=== PATIENT | male | born 1960 | race Caucasian/White ===

== ENCOUNTER 2020-07-09 09:43 | Day surgery (SDC) | payer MEDICARE, SELFPAY ==
[2020-07-03 14:48] VITALS: BMI 27.3
--- NOTE | 2020-07-04 14:44 | P.CONAN_ITS ---
Documented by User: Stephanie López 07/04/20 14:45 HPI - Anesthesia Eval Consult details Narrative: 60yo M for EGD and Colonoscopy: GERD, screening PMFSH Past Medical History Medical History Anxiety Depression GERD (gastroesophageal reflux disease) High cholesterol Hypertension Surgical History Surgical History History of left knee surgery Hx of appendectomy Hx of colonoscopy Social History Social History Smoking Status: Never smoker Use of substances other than those prescribed or required for medical reasons: No Advance Directives: Yes Advance Directives on File: Yes Advance Directives Date on File: 07/09/20 Meds Allergies Allergy/AdvReac Type Severity Reaction Status Date / Time Benadryl Allergy Unknown Agitated, Uncoded 07/03/20 14:39 itching,rash Home Medications Medication Instructions Recorded Confirmed Type alprazolam 1 mg PO BID 07/03/20 07/03/20 History amlodipine 1 tab PO DAILY 07/03/20 07/03/20 History atorvastatin 1 tab PO DAILY 07/03/20 07/03/20 History duloxetine 2 cap PO DAILY 07/03/20 07/03/20 History losartan 1 tab PO DAILY 07/03/20 07/03/20 History metoprolol tartrate 1 tab PO DAILY 07/03/20 07/03/20 History multivitamin 1 tab PO DAILY 07/03/20 07/03/20 History oxcarbazepine [Trileptal] 900 mg PO DAILY 07/03/20 07/03/20 History Exam Exam Date and Time: July 04, 2020 1444 Height,Weight and Vital Signs: Height 5 ft 8 in Weight 81.647 kg Assessment and Plan Assessment Anesthesia Assessment: Chart Reviewed Documented by User: Mikki White 07/09/20 10:53 [facility]LY [facility] Past Medical History Medical History Anxiety Depression GERD (gastroesophageal reflux disease) High cholesterol Hypertension Surgical History Surgical History History of left knee surgery Hx of appendectomy Hx of colonoscopy Social History Social History Smoking Status: Never smoker Use of substances other than those prescribed or required for medical reasons: No Advance Directives: Yes Advance Directives on File: Yes Advance Directives Date on File: 07/09/20 Meds Allergies Allergy/AdvReac Type Severity Reaction Status Date / Time Benadryl Allergy Unknown Agitated, Uncoded 07/03/20 14:39 itching,rash Home Medications Medication Instructions Recorded Confirmed Type alprazolam 1 mg PO BID 07/03/20 07/03/20 History amlodipine 1 tab PO DAILY 07/03/20 07/03/20 History atorvastatin 1 tab PO DAILY 07/03/20 07/03/20 History duloxetine 2 cap PO DAILY 07/03/20 07/03/20 History losartan 1 tab PO DAILY 07/03/20 07/03/20 History metoprolol tartrate 1 tab PO DAILY 07/03/20 07/03/20 History multivitamin 1 tab PO DAILY 07/03/20 07/03/20 History oxcarbazepine [Trileptal] 900 mg PO DAILY 07/03/20 07/03/20 History Exam Airway Mallampati Class: II TM Dist: >3cm Neck ROM: Full
[2020-07-09 11:07] VITALS: BP 101/79; PULSE 72; RESP 16; TEMP 36.4; O2SAT 95
[2020-07-09] MEDS: Lactated Ringers 1,000 ML 100 ML IVCONT (11:21)
[2020-07-09 12:22] VITALS: BP 86/57; PULSE 62; RESP 18; TEMP 36.7; O2SAT 95
[2020-07-09 12:31] VITALS: BP 91/56
[2020-07-09 12:38] VITALS: BP 94/62; PULSE 63; RESP 18; O2SAT 96
[2020-07-09 12:50] VITALS: BP 104/76; PULSE 62; RESP 18; TEMP 36.7; O2SAT 96
--- NOTE | 2020-07-09 13:02 | OP_ITS ---
SURGEON: Trino Holt MD INDICATIONS: The patient presents for evaluation of gastroesophageal reflux, colorectal cancer screening. Full consent has been obtained from him for this, including risks of bleeding and perforation. PREOPERATIVE DIAGNOSIS: POSTOPERATIVE DIAGNOSIS: PROCEDURE PERFORMED: Esophagogastroduodenoscopy with biopsies, and colonoscopy to cecum with biopsy and removal of polyps. ESTIMATED BLOOD LOSS: COMPLICATIONS: ANESTHESIA: Monitored anesthesia care. ASSISTANTS: SPECIMENS: PREOPERATIVE DIAGNOSES: Gastroesophageal reflux, colorectal cancer screening. POSTOPERATIVE DIAGNOSES: Gastroesophageal reflux, colorectal cancer screening, hiatal hernia, reflux esophagitis, gastritis, colon polyps, diverticulosis, internal hemorrhoids, and fibroepithelial polyp of anus. DESCRIPTION OF PROCEDURE: The patient was placed in the left lateral decubitus position. The Olympus video gastroscope was passed in the posterior oropharynx and upper esophagus under direct vision. The scope was passed slowly into the distal esophagus. The gastroesophageal junction appeared at 35 cm. There was evidence of some erosive esophagitis, but no ulceration, mass, nor stricture. There was no definitive evidence of Gama's mucosa. The scope was entered into the stomach. There was a moderate-sized hiatal hernia. The hiatal hernia mucosa appeared normal. The scope was advanced to pylorus and duodenum cannulated to the descending portion. The duodenum including the bulb appeared normal without mass or ulceration. The scope was withdrawn back into the stomach. The gastric antrum had some chronic changes of gastritis, but without erosions nor ulceration. There was good peristalsis. Scope was retroflexed visualizing the proximal stomach carefully which appeared normal, without any sign of mass or ulceration. The scope was straightened. Biopsies were obtained in the gastric antrum. Scope was withdrawn back into the esophagus. Biopsies were obtained at the EG junction at 35 cm. Proximal to this, the esophageal mucosa appeared normal. The scope was withdrawn from the patient. He was turned around for colonoscopy. The digital rectal exam revealed no abnormalities. The Olympus video pediatric colonoscope was entered into the rectum and advanced to the cecum with the assistance of abdominal wall pressure. Once in the cecum, I did identify cecal pouch with appendiceal orifice and a normal-appearing ileocecal valve. There was transillumination of light deep in the right lower quadrant. The entire cecum was well visualized after copious irrigation and suctioning. This appeared normal. The scope was then slowly withdrawn assessing all mucosal surfaces carefully. Preparation was only fair throughout the colon with a fairly significant amount of liquid stool in the sigmoid colon and left colon, which was irrigated and suctioned away as best as possible. In the ascending colon and in the rectum, were flat 3 or 4 mm polyps, which were each biopsied and completely removed with cold biopsy forceps. There was a mild amount of sigmoid diverticulosis. In the rectum, scope was retroflexed visualizing internal hemorrhoids. Both in the forward viewing and retroflexed position, was also what appeared to be a fibroepithelial polyp below the dentate line. This was not biopsied nor removed. The scope was then straightened and withdrawn from the patient. He tolerated both procedures well and was returned to the recovery area in stable condition. IMPRESSION: 1. Hiatal hernia with associated reflux esophagitis. 2. Chronic-appearing gastritis. 3. Small colon polyps. 4. Diverticulosis. 5. Internal hemorrhoids. 6. Fibroepithelial polyp of the anal canal. PLAN: The results of the biopsy will be checked. Given the limited prep and the removal of polyps, I would recommend a repeat colonoscopy in 5 years. However, I also advised him to pick remover a Cologuard test from his primary care physician and if this is positive, we would want to proceed with a colonoscopy later this year or next year instead. He was advised not to use any aspirin and NSAIDs for 1 week. He was given a prescription to start omeprazole 20 mg daily for symptomatic relief of his reflux and today's endoscopic findings. He was advised to see me in 2 to 3 months for a followup visit as well. MD ANASTASIYA Parks/JYOTSNA / [phone]
--- NOTE | 2020-07-09 13:09 | HO.POSTANES ---
Post Anesthesia Evaluation Post Anesthesia Evaluation Vital Signs: Vital Signs Temp Pulse Resp BP Pulse Ox 07/09/20 12:50 98.1 F 62 18 104/76 96 07/09/20 12:38 63 18 94/62 96 07/09/20 12:31 91/56 L 07/09/20 12:22 98.1 F 62 18 86/57 L 95 07/09/20 11:07 97.5 F 72 16 101/79 95 Anesthesia: Monitored Mental Status: Awake Pain Control: Satisfactory Nausea/Vomiting: None Hydration: Adequate Anesthesia-Related Issues: No Anes. Related Issues
--- NOTE | 2020-07-09 15:42 | PM.OP ---
Brief Operative Note Date of procedure: 07/09/20 Pre-op diagnosis: GERD, Screening Post-op diagnosis: other (Erosive esophagitis, Hiatal hernia, colon polyps ,dicverticulosis, internal hemorrhoids) Procedure: EGD with biopsies and Colonoscopy to cecum with biopsy and removal of polyps Surgeon: Trino Holt Anesthesia: MAC Estimated blood loss (mL): 5.0 Pathology: other (A. EG Junction at 35cm B. Gastric antrum C. Ascending colon polyp D. Rectal polyp) Condition: stable Disposition: PACU
== END 2020-07-09 13:23 | disposition home or self-care (01) ==
PROVIDERS: PCP Internal Medicine; Visit Provider Internal Medicine
PROC: (CPT 45380; principal; 2020-07-09 11:00)
DX: Z12.11 Encounter for screening for malignant neoplasm of colon (principal); D12.2 Benign neoplasm of ascending colon; K57.30 Diverticulosis of large intestine without perforation or abscess without bleeding; K64.8 Other hemorrhoids; K62.1 Rectal polyp; K21.00 Gastro-esophageal reflux disease with esophagitis, without bleeding; K29.50 Unspecified chronic gastritis without bleeding; K44.9 Diaphragmatic hernia without obstruction or gangrene; I10 Essential (primary) hypertension; E78.00 Pure hypercholesterolemia, unspecified; F32.9 Major depressive disorder, single episode, unspecified; Z79.899 Other long term (current) drug therapy
CPT/HCPCS: 45380; 43239; 88305; 88342

== ENCOUNTER 2020-08-29 12:48 | Outpatient (REF) | payer MEDICARE, SELFPAY | END 2020-08-29 12:49 | disposition home or self-care (01) | LOC: HO.WFDLDS 12:48 | PROVIDERS: PCP Internal Medicine; Visit Provider Internal Medicine | DX: Z20.828 Contact with and (suspected) exposure to other viral communicable diseases (principal) | CPT/HCPCS: C9803; U0003 ==

== ENCOUNTER 2021-07-30 10:17 | Outpatient (REF) | payer MEDICARE, SELFPAY ==
[2021-07-30 11:57] LABS: Vitamin D 25-OH Total 18.5 ng/mL (>30)
[2021-07-30 12:01] LABS: Folate 8.5 ng/mL (> or = 4.0); Vitamin B12 420 pg/mL (200-900)
== END 2021-07-30 10:18 | disposition home or self-care (01) ==
LOC: HO.LAB 10:17
PROVIDERS: PCP Internal Medicine; Visit Provider Psychiatry & Neurology Neurology
DX: G30.9 Alzheimer's disease, unspecified (principal)
CPT/HCPCS: 36415; 82306; 82607; 82746

== ENCOUNTER 2021-11-05 08:03 | Outpatient (REF) | payer MEDICARE, SELFPAY ==
--- NOTE | ~2021-11-05 | XR_ITS ---
EXAMINATION: XR CHEST CLINICAL INFORMATION: Dyspnea COMPARISON: 03/24/2013 TECHNIQUE: 2 views of the chest were obtained. FINDINGS: No significant abnormality is noted involving the heart, lungs, mediastinum, bony thorax or soft tissues. XR/XR chest 2V IMPRESSION: Unremarkable examination.
--- NOTE | 2021-11-05 08:28 | ECG_ITS ---
Test Reason : htn Blood Pressure : / mmHG Vent. Rate : 058 BPM Atrial Rate : 058 BPM P-R Int : 150 ms QRS Dur : 088 ms QT Int : 402 ms P-R-T Axes : 033 052 051 degrees QTc Int : 394 ms Sinus bradycardia Otherwise normal ECG When compared with ECG of 12-FEB-2018 11:28, No significant change was found Referred By: Dimas Fish Electronically Signed By:TRINA BARAJAS MD
[2021-11-05 08:29] LABS: MANUAL DIFF FLAG NO
[2021-11-05 08:58] LABS: Basophils Percent Auto 0.6 % (0-2); Eosinophils Absolute Auto 0.2 X10*3/uL (0.0-0.4); Eosinophils Percent Auto 3.2 % (0-4); Hemoglobin 16.1 g/dl (14.0-18.0); Imm Gran Abs Auto 0.02 X10*3/uL (0.00-0.03); Imm Gran Pct Auto 0.3 % (0.0-0.4); Lymphocytes Absolute Auto 2.2 X10*3/uL (1.2-4.9); Lymphocytes Percent Auto 29.9 % (20-40); Mean Corpuscular HGB Conc 33.5 g/dl (31.0-36.0); Mean Corpuscular Hemoglobin 31.3 pg (27.0-33.0); Mean Corpuscular Volume 93.2 fL (80.0-98.0); Mean Platelet Volume 11.2 fL (9.4-12.4); Monocytes Absolute Auto 0.6 X10*3/uL (0.1-1.2); Monocytes Percent Auto 7.8 % (2-11); Neutrophils Absolute Auto 4.2 x10*3/uL (2.0-8.3); Neutrophils Percent Auto 58.2 % (45-73); Platelet Count 190 X10*3/uL (160-400); Red Blood Count 5.15 X10*6/uL (4.60-5.80); Red Cell Distribution Width 11.9 % (11.0-16.0); White Blood Count 7.2 X10*3/uL (4.8-10.8)
[2021-11-05 09:36] LABS: Alanine Aminotransferase 37 U/L (0-40); Albumin Level 4.5 g/dL (3.5-5.0); Alkaline Phosphatase 66 U/L (39-117); Anion Gap 12 (12-20); Aspartate Amino Transferase 36 U/L (5-37); Bilirubin Total 0.5 mg/dL (0.0-1.0); Blood Urea Nitrogen 27 mg/dL (9-16); Calcium 10.1 mg/dL (8.4-10.2); Carbon Dioxide 30 mmol/L (22-29); Chloride 103 mmol/L (96-108); Cholesterol 197 mg/dL; Estimated Glomerular Filt Rate > 60; Glucose Fasting 109 mg/dL (60-99); HDL Cholesterol 40 mg/dL; LDL Cholesterol Calculated 109 mg/dl; Sodium 140 mmol/L (135-145); Triglycerides 244 mg/dL
[2021-11-05 09:59] LABS: Prostate Specific Antigen Scr 0.31 ng/mL (<0.05-4.0); Thyroid Stimulating Hormone 1.87 uIU/mL (0.32-4.0)
== END 2021-11-05 08:04 | disposition home or self-care (01) ==
LOC: HO.XRAY 08:03
PROVIDERS: PCP Internal Medicine; Visit Provider Internal Medicine
DX: Z00.00 Encounter for general adult medical examination without abnormal findings (principal); Z13.0 Encounter for screening for diseases of the blood and blood-forming organs and certain disorders involving the immune mechanism; Z13.9 Encounter for screening, unspecified; Z12.5 Encounter for screening for malignant neoplasm of prostate; R06.00 Dyspnea, unspecified
CPT/HCPCS: 36415; 71046; 80053; 80061; 84153; 84443; 85025; 93005

== ENCOUNTER → 2021-12-24 14:33 | Outpatient (BNVA) | payer MEDICARE, SELFPAY | PROVIDERS: PCP Internal Medicine; Referring Provider Internal Medicine; Visit Provider Internal Medicine Cardiovascular Disease | DX: I25.10 Atherosclerotic heart disease of native coronary artery without angina pectoris (principal); R07.89 Other chest pain; R00.2 Palpitations | CPT/HCPCS: 99202 ==

== ENCOUNTER → 2022-01-07 10:50 | Outpatient (REF) | payer MEDICARE, SELFPAY ==
--- NOTE | 2022-01-07 10:53 | CA_ITS ---
Acquisition Time: 2022-01-07 11:08:47 Total Exercise Time: 00:09:47 Test Indications: CP Medications: SEE CHART Protocol: LATOYA Max HR: 148 BPM 93% of Pred: 158 BPM Max BP: 118/076 mmHG Max Work Load: 11.3 METS Exercise stress ECHO using Latoya protocol. Pt tolerated well exercised for 9 min. 47 sec, METS 11.3, and MAPHR up to 93 %. EKG without arrhythmias, mild [address] depressions seen in leads ll, lll, and lead V3. Pt denies CP, mild SOB that improved in recovery. Pt's BP dropped to 88/58 at 5 min into exercise with no sx, bp rechecked at 6 min up to 100/58. ECHO images taken at rest and immediately when peak exercise. Definity IV was used. Test reviewed with Dr. Linares. STRESS ECHO : Technique : Images were obtained at rest and immediately post exercise within 1 minute and 15 seconds. Definity contrast was used to enhance endocardial definition. Images were obtained in multiple views and compared side to side. Findings : At rest images are of good quality. LV systolic function is normal with normal wall motion. Posr exercise images, parasternal views are sub optimal due to off axis views. There is excellent augmentation of global LV systolic function. Apical views demonstrate on regional wall motion abnormalities. Cocnlusion : Stress echo is negative for ischemia. Referred By: Trina Linares Overread By: TRINA LINARES MD
--- NOTE | 2022-01-07 10:53 | HM_ITS ---
* Total monitoring time 3 days and 2 hours. * Underlying rhythm is sinus. Average rate 70/Min. Range 48 to 119/Min. * No atrial fibrillation or flutter or AV blocks or pauses. * Very rare supraventricular and ventricular ectopy with minimal burden. * No patient events. MTDD
== END ==
LOC: HO.CARD 10:50
PROVIDERS: PCP Internal Medicine; Visit Provider Internal Medicine Cardiovascular Disease
DX: R00.2 Palpitations (principal)
CPT/HCPCS: 93242; 93350; Q9957

== ENCOUNTER → 2022-02-11 08:37 | Outpatient (BNVA) | payer MEDICARE, SELFPAY | PROVIDERS: PCP Internal Medicine; Referring Provider Internal Medicine; Visit Provider Internal Medicine Cardiovascular Disease | DX: I25.10 Atherosclerotic heart disease of native coronary artery without angina pectoris (principal); R00.2 Palpitations | CPT/HCPCS: 99212 ==

== ENCOUNTER 2022-03-07 11:24 | Outpatient (REF) | payer MEDICARE, SELFPAY ==
--- NOTE | ~2022-03-07 | XR_ITS ---
EXAMINATION: XR LUMBOSACRAL SPINE CLINICAL INFORMATION: Pain COMPARISON: None TECHNIQUE: Three views of the lumbosacral spine. FINDINGS: Bone alignment is normal. No fracture or dislocation is seen. Disc spaces are normal. There is lower lumbar spine facet arthritis. XR/XR lumbar spine 2-3V IMPRESSION: Lower lumbar spine facet arthritis.
== END 2022-03-07 11:25 | disposition home or self-care (01) ==
LOC: HO.XRAY 11:24
PROVIDERS: PCP Internal Medicine; Visit Provider Internal Medicine
DX: M54.9 Dorsalgia, unspecified (principal)
CPT/HCPCS: 72100

== ENCOUNTER 2023-04-10 09:01 | Outpatient (AMB) | payer MEDICARE, SELFPAY ==
--- NOTE | 2023-04-10 06:50 | A.OFFVIS_ITS ---
Intake Intake Visit Reasons: prostatitis Intake Note: NEW Patient presents today to established treatment for Prostatitis: Meds- None Allergies to Antibiotic- No Known Allergies Blood Thinner- None PVR- 523 ml [employer] Required: No Accompanied by: Self / Same As Patient Allergies diphenhydramine [From Benadryl] Allergy (Unknown, Verified 04/10/23 09:05) aggitated,itch,rash HPI HPI Comments History of Present Illness Details Erwin is a 62-year-old male who presents today to the office for an evaluation of prostatitis.? 04/10/2023? He has a past medical history of hypertension, dementia, and depression. He states that he was seen by his PCP for the complaints of urgency and was diagnosed with prostatitis. He was treated with antibiotic at that time. He states that he has taken the medication everyday for a month.? Currently, he is not taking any antibiotics.? He states that he was referred here due to persistent pain and burning while urinating. He also mentions having incomplete bladder emptying.? He denies any swelling in the scrotum area. He had PSA done on 11/05/2021?0.31. Evaluation today UA-- -- leucocytes: 15; blood: negative; bladder scan PVR; 523mL. (Disc'd catheterization) He states that he had urge to void again before putting Sweeney catheter, he voided 250mL, I am going to hold on putting Sweeney catheter today.? Recommended the patient to restart Tamsulosin 0.4mg daily.? Exam: Prostate was mildly enlarged 2+; smooth, no suspicious nodules palpated; testicles are normal. He will try to void again and will determine that whether he will get a Sweeney catheter Plan:? Advised to restart taking Tamsulosin 0.4mg daily. Office Cystoscopy in 6-weeks. Renal US prior He will have PSA and renal US prior to 6 week follow up. Follow up in 7-10 days with the nurse to have repeat bladder scan in the office. [facility] Medical History Anxiety CAD (coronary artery disease) Chronic GERD Colon polyps Dementia Depression Depression GERD (gastroesophageal reflux disease) High cholesterol Hyperlipidemia Hypertension Hypertension Surgical History History of left knee surgery Hx of appendectomy Hx of colonoscopy Family History Father Past heart attack Mother Hypertension Social History Housing: House Alcohol intake: current Alcohol intake frequency: a few times a month Patient Tobacco Use Status: Never used Tobacco e-Cigarette/Vaping Use: Never Used Second Hand Smoke Exposure: No Advance Directives Date on File: 07/09/20 Current occupational status: employed Cognitive needs: No Hearing needs: No Vision needs: Yes Review of Systems Const All systems reviewed & are unremarkable except as noted in HPI and below Reports no additional complaints Eyes Reports no additional complaints ENT Reports no additional complaints Card Denies dyspnea Resp Denies cough and Denies dyspnea GI Reports no additional complaints Musc Reports no additional complaints Skin/Breast Denies rash and Denies unusual bruising Neuro Reports no additional complaints Psych Reports no additional complaints Endo Reports no additional complaints Heath/Lymph Reports no additional complaints Aller/Immun Reports no additional complaints Physical Exam Const General: healthy appearing, no acute distress and well developed Orientation/consciousness: patient oriented x3 HEENT Head: Yes normocephalic and Yes atraumatic Eyes Conjunctivae: conjunctivae normal Neck Neck: Yes normal visual inspection Chest Chest palpation & inspection: normal inspection of the chest Resp Effort & Inspection: normal respiratory effort Cardio Rate: regular rate GI Inspection: Yes normal to inspection Palpation (GI): Soft to palpation Other: Prostate Exam: smooth, NT, no suspicious nodules palp'd size 2+ Penis: normal penis Scrotum: scrotum normal Skin General skin exam: no rashes or lesions noted Neuro General: patient oriented x3 Extrem General: No pedal edema Psych Appearance: grossly normal Affect: normal affect Office Procedures Post Void Residual Post Residual Void Post Void Residual (PVR): 523 [id number] Void Residual by ultrasound Results AMB Urinalysis, Automated UA Leukoctes 15 Nichol/uL Last Edit by Nelida Martinez Bill on 04/10/23 09:29 UA Nitrite Negative Last Edit by Nelida Martinez A on 04/10/23 09:29 UA Urobilinogen 0.2 mg/dL Last Edit by Nelida Martinez A on 04/10/23 09:2 9 UA Protein 0 mg/dL Last Edit by Nelida Martinez A on 04/10/23 09:29 UA pH 6.0 Last Edit by Nelida Martinez A on 04/10/23 09:29 UA Blood 0 Armaan/uL Last Edit by Nelida Martinez [facility] on 04/10/23 09:29 UA Specific Douglas 1.020 Last Edit by Nelida Martinez [facility] on 04/10/23 09: 29 UA Ketone Negative Last Edit by Nelida Martinez [facility] on 04/10/23 09:29 UA Bilirubin 0 mg/dL Last Edit by Nelida Martniez A on 04/10/23 09:29 UA Glucose 0 mg/dL Last Edit by Nelida Martinez [facility] on 04/10/23 09:29 Results Reviewed Results Reviewed: Laboratory Last Values Urine pH (Auto) 6.0 04/10/23 09:06 Specific Douglas (Auto) 1.020 04/10/23 09:06 Urine Protein (Auto) 0 mg/dL 04/10/23 09:06 Glucose (UA)(Auto) 0 mg/dL 04/10/23 09:06 Urine Ketones (Auto) Negative 04/10/23 09:06 Urine Blood (Auto) 0 Armaan/uL 04/10/23 09:06 Urine Nitrite (Auto) Negative 04/10/23 09:06 Urine Bilirubin (Auto) 0 mg/dL 04/10/23 09:06 Urine Urobilinogen (Auto) 0.2 mg/dL 04/10/23 09:06 Leukocyte Esterase (Auto) 15 Nichol/uL 04/10/23 09:06 Assessment & Plan Assessment & Plan (1) Incomplete bladder emptying: Code(s): R33.9 - Retention of urine, unspecified (2) BPH w urinary obs/LUTS: Code(s): N40.1 - Benign prostatic hyperplasia with lower urinary tract symptoms; N13.8 - Other obstructive and reflux uropathy (3) Hematuria: Code(s): R31.9 - Hematuria, unspecified (4) Prostatitis: Code(s): N41.9 - Inflammatory disease of prostate, unspecified Plan Advised to restart taking Tamsulosin 0.4mg daily. Advised to consider office Cystoscopy in 6-weeks. He will have PSA and renal US prior to 6 week follow up. Follow up in 7-10 days with the nurse to have repeat bladder scan in the office. Orders: Orders US renal BI Today N13.8 - Other obstructive and reflux uropathy, N40.1 - Benign prostatic hyperplasia with lower urinary tract symptoms, N41.9 - Inflammatory disease of prostate, unspecified, R33.9 - Retention of urine, unspecified AMB Urinalysis Automated Today Z13.9 - Encounter for screening, unspecified AMB Post Void Residual by ultrasound Today N39.8 - Other specified disorders of urinary system Medications: New tamsulosin (Flomax) 0.4 mg PO DAILY 90 caps 1RF Patient Instructions: The patient had an opportunity to ask questions regarding treatment plan. All questions were answered. Imaging, Laboratory studies and physical exam results were discussed and reviewed in detail. No major barriers to understanding were identified. The patient expressed understanding and agreement with the above treatment plan. The patient is aware they should contact our office by phone for worsening of their current condition or the appearance of new symptoms. Compliance is encouraged with any medications and followup testing that is ordered. It is a privilege to be allowed the opportunity to participate in the urologic care of your patient. If you have any questions or concerns regarding treatment for the above conditions please do not hesitate to contact me. The office telephone contact is [phone]. This note is constructed in part using voice recognition software. While every effort has been made to ensure accuracy dental office receptionist errors may have been included. Yours sincerely, Puja Yan MD Coding Level of Care Code New Pt Level 4 (73782) Diagnoses Incomplete bladder emptying R33.9 BPH w urinary obs/LUTS N40.1; N13.8 Hematuria R31.9 Prostatitis N41.9 CPT Codes Post Residual Void - PVR CPT Code: 63205-Ecmt Void Residual by ultrasound ([id number])
== END 2023-04-10 10:02 | disposition home or self-care (01) ==
PROVIDERS: PCP Internal Medicine; Visit Provider Urology
DX: R33.9 Retention of urine, unspecified (principal); N40.1 Benign prostatic hyperplasia with lower urinary tract symptoms; N13.8 Other obstructive and reflux uropathy; R31.9 Hematuria, unspecified; N41.9 Inflammatory disease of prostate, unspecified
CPT/HCPCS: 99204

== ENCOUNTER → 2023-04-10 09:01 | Outpatient (BNVA) | payer MEDICARE, SELFPAY | PROVIDERS: PCP Internal Medicine; Visit Provider Urology | DX: N41.9 Inflammatory disease of prostate, unspecified (principal); N40.1 Benign prostatic hyperplasia with lower urinary tract symptoms; N13.8 Other obstructive and reflux uropathy; R33.8 Other retention of urine; R31.9 Hematuria, unspecified | CPT/HCPCS: 51798; 99202 ==

== ENCOUNTER → 2023-04-22 12:53 | Outpatient (BNVA) | payer MEDICARE, SELFPAY | PROVIDERS: PCP Internal Medicine; Visit Provider Urology | DX: R33.9 Retention of urine, unspecified (principal); N40.1 Benign prostatic hyperplasia with lower urinary tract symptoms; N13.8 Other obstructive and reflux uropathy; N41.9 Inflammatory disease of prostate, unspecified | CPT/HCPCS: 51798 ==

== ENCOUNTER 2023-04-24 11:05 | Outpatient (REF) | payer MEDICARE, SELFPAY ==
--- NOTE | ~2023-04-24 | US_ITS ---
EXAMINATION: US RETROPERITONEAL LIMITED (RENAL ONLY) CLINICAL INFORMATION: Retention of urine, unspecified. COMPARISON: None available. TECHNIQUE: Real-time imaging of the kidneys. FINDINGS: RIGHT KIDNEY: 10.6 x 6.1 x 5.5 cm (SAG x AP x TRV). The kidney is normal in size, contour, and echogenicity. Renal cortical thickness is normal. No calculi or focal parenchymal lesions. No hydronephrosis. LEFT KIDNEY: 11.3 x 6.7 x 5.9 cm (SAG x AP x TRV). The kidney is normal in size, contour, and echogenicity. Renal cortical thickness is normal. No calculi or focal parenchymal lesions. No hydronephrosis. US/US renal BI IMPRESSION: Unremarkable renal ultrasound.
== END 2023-04-24 11:06 | disposition home or self-care (01) ==
LOC: HO.US 11:05
PROVIDERS: Visit Provider Urology
DX: N40.1 Benign prostatic hyperplasia with lower urinary tract symptoms (principal); R33.9 Retention of urine, unspecified; N41.9 Inflammatory disease of prostate, unspecified; N13.8 Other obstructive and reflux uropathy
CPT/HCPCS: 76775

== ENCOUNTER 2023-05-14 11:50 | Outpatient (REF) | payer MEDICARE, SELFPAY | END 2023-05-14 11:51 | disposition home or self-care (01) | LOC: HO.LAB 11:50 | PROVIDERS: PCP Internal Medicine; Visit Provider Urology | DX: Z12.5 Encounter for screening for malignant neoplasm of prostate (principal); N40.1 Benign prostatic hyperplasia with lower urinary tract symptoms | CPT/HCPCS: 36415; 84153 ==

== ENCOUNTER 2023-05-18 09:25 | Outpatient (AMB) | payer MEDICARE, SELFPAY ==
--- NOTE | 2023-05-18 04:51 | A.OFFVIS_ITS ---
Intake Intake Visit Reasons: Cysto/ US/ PSA Intake Note: Patient is present for Cystoscopy Urology Med: Tamsulosin Antibiotic Allergy: None Blood Thinner: None Pharmacy: [facility] Disposable Cystoscope used during Procedure LOT#: [id number] EXP: 01/23/2025 Allergies diphenhydramine [From Benadryl] Allergy (Unknown, Verified 05/18/23 09:39) aggitated,itch,rash Medication List - Last Reconciled 05/18/23 by Puja Yan MD alprazolam 1 mg PO BID alprazolam 0.5 mg PO DAILY PRN amlodipine 10 mg PO DAILY atorvastatin 80 mg PO DAILY duloxetine 60 mg PO DAILY finasteride (Proscar) 5 mg PO DAILY 90 days gabapentin 100 mg PO TID lamotrigine (Lamictal) 100 mg PO DAILY lamotrigine 150 mg PO DAILY losartan 100 mg (2 x 50 mg) PO DAILY 90 days metoprolol succinate ER 50 mg PO DAILY tamsulosin (Flomax) 0.4 mg PO BID HPI HPI Comments History of Present Illness Details Erwin is a 62-year-old male who presents today to the office for a follow-up. 05/18/2023? Erwin is followed for cystoscopy. He was last seen by me on 04/10/2023 for benign prostatic hyperplasia.? He was advised to restart taking Tamsulosin 0.4mg daily at that time.? Office Cystoscopy was scheduled in 6-weeks and Renal US prior. He was advised to have PSA and renal US prior to 6 week follow up, and was advised to follow up in 7-10 days with the nurse to have repeat bladder scan in the office at that time. At that time, the bladder scan checked by the nurse - noted to be still elevated, and Dr. Woodward who was in the office that day instructed the patient to increase the Flomax to twice a day. He denies any dizziness. Review of charts: Last visit: 04/10/2023: He has a past medical history of hypertension, dementia, and depression. He states that he was seen by his PCP for the complaints of urgency and was diagnosed with prostatitis. He was treated with antibiotic at that time. He states that he has taken the medication everyday for a month.? Currently, he is not taking any antibiotics.? He states that he was referred here due to persistent pain and burning while urinating. He also mentions having incomplete bladder emptying.?He denies any swelling in the scrotum area. He had PSA done on 11/05/2021?0.31. Evaluation today UA-- --- leucocytes: 15; blood: negative; bladder scan PVR; 523mL. (Disc'd catheterization) He states that he had urge to void again before putting Sweeney catheter, he voided 250mL, I am going to hold on putting Sweeney catheter today.? Recommended the patient to restart Tamsulosin 0.4mg daily.? Exam: Prostate was mildly enlarged 2+; smooth, no suspicious nodules palpated; testicles are normal. He will try to void again and will determine that whether he will get a Sweeney catheter Plan:?Advised to restart taking Tamsulosin 0.4mg daily. Office Cystoscopy in 6- weeks. Renal US prior. He will have PSA and renal US prior to 6 week follow up. Follow up in 7-10 days with the nurse to have repeat bladder scan in the office. 05/18/2023: Evaluation today?UA? leukocytes: negative; blood: negative. Cystoscopy procedure: Findings: prostatic urethra trilobar enlargement, bulbous urethra WNL, no suspicious bladder lesions visualized I have reviewed the renal US results from 04/24/2023 Kidneys within normal limits. 05/18/2023: Plan: Urodynamics was discussed to be scheduled. Continue Flomax 0.8 mg, take 0.4 mg BID. Proscar 5 mg was ordered. [facility] Medical History Anxiety CAD (coronary artery disease) Chronic GERD Colon polyps Dementia Depression Depression GERD (gastroesophageal reflux disease) High cholesterol Hyperlipidemia Hypertension Hypertension Surgical History History of left knee surgery Hx of appendectomy Hx of colonoscopy Family History Father Past heart attack Mother Hypertension Social History Housing: House Alcohol intake: current Alcohol intake frequency: a few times a month Patient Tobacco Use Status: Never used Tobacco e-Cigarette/Vaping Use: Never Used Second Hand Smoke Exposure: No Advance Directives Date on File: 07/09/20 Current occupational status: employed Cognitive needs: No Hearing needs: No Vision needs: Yes Review of Systems Const All systems reviewed & are unremarkable except as noted in HPI and below Reports no additional complaints Eyes Reports no additional complaints ENT Reports no additional complaints Card Denies dyspnea Resp Denies cough and Denies dyspnea GI Reports no additional complaints Musc Reports no additional complaints Skin/Breast Denies rash and Denies unusual bruising Neuro Reports no additional complaints Psych Reports no additional complaints Endo Reports no additional complaints Heath/Lymph Reports no additional complaints Aller/Immun Reports no additional complaints Office Procedures Cystoscopy Consent Discussed risk and benefit or proposed procedure with the patient. Information consent for procedure given to the patient. Discussed technical aspects, risks, benefits and alternatives in full. Addressed all of the patient's questions and concerns regarding the procedure. The patient demonstrated knowledge and understanding. They wish to proceed with this procedure. Preparation The patient was prepped in the usual manner. A coupling machine operator was present and in the room. Genitalia was prepped with betadine solution in a sterile manner. Lidocaine Jelly 2% was placed into the urethra and 16Fr flexible Olympus cystoscope was inserted into the meatus after adequate lubrication. Procedure Time out per protocol performed. Bladder Inspection Bladder Inspection: The bladder was inspected in its entirety with utilization retroflexion displaying: Tumor(s): none visualized Trabeculation: mild to moderate Mucosal Erthema: N/A Orifices: not well visualized Urethra: normal Cystoscopy findings: prostatic urethra trilobar enlargement, bulbous urethra WNL, no suspicious bladder lesions visualized 34162-Bhhiioxpuc DISPOSABLE SCOPE URO-G FLEXIBLE SCOPE Procedure code (CPT) selection complete Office Meds lidocaine HCl Performing Provider: Puja Yan MD Administered by: SRIRAM Diaz on 05/18/23 10:18 Dose Route Admin Location Lot Number Expiration Date NDC Freelance Director 10 mL intra-urethral Comments: Administered by Dr Aggie reynoldsroxisabel Performing Provider: Puja Yan MD Administered by: SRIRAM Diaz on 05/18/23 10:18 Dose Route Admin Location Lot Number Expiration Date NDC Freelance Director 500 mg PO Comments: Administered by Dr Marcial ciprofloxacin HCl Performing Provider: Puja Yan MD Administered by: SRIRAM Diaz on 05/18/23 10:18 Dose Route Admin Location Lot Number Expiration Date NDC Freelance Director 500 mg PO Comments: Administered by Dr Marcial Results AMB Urinalysis, Automated UA Leukoctes 0 Nichol/uL Last Edit by Rachele Grace [facility] on 05/18/23 09:46 UA Nitrite Negative Last Edit by Rachele Grace [facility] on 05/18/23 09:46 UA Urobilinogen 0.2 mg/dL Last Edit by Rachele Grace A on 05/18/23 09:4 6 UA Protein 0 mg/dL Last Edit by Rachele Grace [facility] on 05/18/23 09:46 UA pH 6.0 Last Edit by Rachele Grace A on 05/18/23 09:46 UA Blood 0 Armaan/uL Last Edit by Rachele Grace A on 05/18/23 09:46 UA Specific [place] 1.020 Last Edit by Rachele Grace [facility] on 05/18/23 09: 46 UA Ketone Negative Last Edit by Rachele Grace A on 05/18/23 09:46 UA Bilirubin 0 mg/dL Last Edit by Rachele Grace A on 05/18/23 09:46 UA Glucose 0 mg/dL Last Edit by Rachele Grace A on 05/18/23 09:46 Results Reviewed Results Reviewed: Laboratory Last Values Urine pH (Auto) 6.0 05/18/23 09:41 Specific [place] (Auto) 1.020 05/18/23 09:41 Urine Protein (Auto) 0 mg/dL 05/18/23 09:41 Glucose (UA)(Auto) 0 mg/dL 05/18/23 09:41 Urine Ketones (Auto) Negative 05/18/23 09:41 Urine Blood (Auto) 0 Armaan/uL 05/18/23 09:41 Urine Nitrite (Auto) Negative 05/18/23 09:41 Urine Bilirubin (Auto) 0 mg/dL 05/18/23 09:41 Urine Urobilinogen (Auto) 0.2 mg/dL 05/18/23 09:41 Leukocyte Esterase (Auto) 0 Nichol/uL 05/18/23 09:41 Date of Service: 04/24/23 EXAMINATION: US RETROPERITONEAL LIMITED (RENAL ONLY) CLINICAL INFORMATION: Retention of urine, unspecified. COMPARISON: None available. FINDINGS: RIGHT KIDNEY: 10.6 x 6.1 x 5.5 cm (SAG x AP x TRV). The kidney is normal in size, contour, and echogenicity. Renal cortical thickness is normal. No calculi or focal parenchymal lesions. No hydronephrosis. LEFT KIDNEY: 11.3 x 6.7 x 5.9 cm (SAG x AP x TRV). The kidney is normal in size, contour, and echogenicity. Renal cortical thickness is normal. No calculi or focal parenchymal lesions. No hydronephrosis. IMPRESSION: Unremarkable renal ultrasound. Assessment & Plan Assessment & Plan (1) Incomplete bladder emptying: Code(s): R33.9 - Retention of urine, unspecified (2) BPH w urinary obs/LUTS: Code(s): N40.1 - Benign prostatic hyperplasia with lower urinary tract symptoms; N13.8 - Other obstructive and reflux uropathy (3) Hematuria: Code(s): R31.9 - Hematuria, unspecified Plan Urodynamics was discussed to be scheduled.? Continue Flomax 0.8 mg, take 0.4 mg BID. Proscar 5 mg was ordered. Orders: Orders Prostate Specific Antigen 05/14/23 N40.1 - Benign prostatic hyperplasia with lower urinary tract symptoms AMB Cystoscopy Today N13.8 - Other obstructive and reflux uropathy, N40.1 - Benign prostatic hyperplasia with lower urinary tract symptoms AMB Urinalysis Automated Today Z13.9 - Encounter for screening, unspecified Medications: New tamsulosin (Flomax) 0.4 mg PO BID 180 caps 1RF finasteride (Proscar) 5 mg PO DAILY 90 tabs 3RF 90 days C61 - Malignant neoplasm of prostate Patient Instructions: The patient had an opportunity to ask questions regarding treatment plan. All questions were answered. Imaging, Laboratory studies and physical exam results were discussed and reviewed in detail. No major barriers to understanding were identified. The patient expressed understanding and agreement with the above treatment plan.? ? ? The patient is aware they should contact our office by phone for worsening of their current condition or the appearance of new symptoms. Compliance is encouraged with any medications and followup testing that is ordered.? ? ? It is a privilege to be allowed the opportunity to participate in the urologic care of your patient. If you have any questions or concerns regarding treatment for the above conditions please do not hesitate to contact me. The office telephone contact is [phone].? ? ? This note is constructed in part using voice recognition software. While every effort has been made to ensure accuracy community development coordinator errors may have been included.? ? ? Yours sincerely,? ? ? Puja Yan MD? Coding Level of Care Code Est Pt Level 3 (32234) Diagnoses Incomplete bladder emptying R33.9 BPH w urinary obs/LUTS N40.1; N13.8 Hematuria R31.9 CPT Codes Cystoscopy - CPT: 51191-Dqdzszgbrg ([id number]) Cystoscopy - CPT: DISPOSABLE SCOPE URO-G FLEXIBLE SCOPE ([id number])
== END 2023-05-18 10:57 | disposition home or self-care (01) ==
PROVIDERS: PCP Internal Medicine; Visit Provider Urology
DX: R33.9 Retention of urine, unspecified (principal); N40.1 Benign prostatic hyperplasia with lower urinary tract symptoms; N13.8 Other obstructive and reflux uropathy; R31.9 Hematuria, unspecified; Z13.9 Encounter for screening, unspecified
CPT/HCPCS: 52000

== ENCOUNTER → 2023-05-18 09:25 | Outpatient (BNVA) | payer MEDICARE, SELFPAY | PROVIDERS: PCP Internal Medicine; Visit Provider Urology | DX: R33.9 Retention of urine, unspecified (principal); N40.1 Benign prostatic hyperplasia with lower urinary tract symptoms; N13.8 Other obstructive and reflux uropathy; R31.9 Hematuria, unspecified | CPT/HCPCS: 52000; 81003; C1747 ==

== ENCOUNTER 2023-07-20 08:55 | Outpatient (AMB) | payer MEDICARE, SELFPAY ==
--- NOTE | 2023-07-20 09:34 | A.OFFVIS_ITS ---
Intake Intake Visit Reasons: Urodynamics Intake Note: Patient presents today for a URODYNAMIC Procedure: Meds: Tamsulosin & Finasteride Allergies to Antibiotic: No Known Allergies Blood Thinner: None Tobacco Weigher Required: No Allergies diphenhydramine [From Benadryl] Allergy (Unknown, Verified 05/18/23 09:39) aggitated,itch,rash HPI HPI Comments History of Present Illness Details Erwin is a 63-year-old male who presents today to the office for a fo llow-up. 07/20/2023? He is followed today for urodynamics procedure. CMG parameters detailed below. Interpretation: Complex uroflow tracing, c/w with straining, low max flow rate, voided volume 234, cath'd PVR significant 850 mL During the filling phase there was delayed sensation, During the procedure, we initially used a 500 mL bag as the patient had delayed sensation, this bag was changed in order to continue filling the bladder, causing erroneous values to be computed. Manual values entered in chart in real time. Interpretation: Neurogenic Bladder. During the voiding phase the patient voided 55 mL and was pushing with abdominal muscles during voiding. the urethral catheter was removed and he was able to void more total of 300 mL. EMG- Appropriate changes in the waveforms were noted through out the study. There was a decrease in the EMG activity during the voiding c/w normal function of the pelvic floor. Lenthy Discussion with the patient regarding the findings as above and treatment plan recommended. 07/20/2023: Plan: UDS findings c/w- Neurogenic Bladder. I discussed intermittent catheterization. Continue Flomax twice a day. Trial bethanechol 50 mg TID. US retroperitoneum. Follow-up with the nurse in 6 weeks for bladder scan and CIC teaching. Follow-up in 10 weeks. [facility] Medical History CAD (coronary artery disease) Depression Dementia Hyperlipidemia Hypertension Colon polyps Chronic GERD GERD (gastroesophageal reflux disease) Anxiety Depression High cholesterol Hypertension Surgical History History of left knee surgery Hx of appendectomy Hx of colonoscopy Family History Father Past heart attack Mother Hypertension Social History Housing: House Alcohol intake: current Alcohol intake frequency: a few times a month Patient Tobacco Use Status: Never used Tobacco e-Cigarette/Vaping Use: Never Used Second Hand Smoke Exposure: No Advance Directives Date on File: 07/09/20 Current occupational status: employed Cognitive needs: No Hearing needs: No Vision needs: Yes Review of Systems Const All systems reviewed & are unremarkable except as noted in HPI and below Reports no additional complaints Eyes Reports no additional complaints ENT Reports no additional complaints Card Denies dyspnea Resp Denies cough and Denies dyspnea GI Reports no additional complaints Musc Reports no additional complaints Skin/Breast Denies rash and Denies unusual bruising Neuro Reports no additional complaints Psych Reports no additional complaints Endo Reports no additional complaints Heath/Lymph Reports no additional complaints Aller/Immun Reports no additional complaints Office Procedures Urodynamic Studies Consent Discussed risk and benefit or proposed procedure with the patient. Information consent for procedure given to the patient. Discussed technical aspects, risks, benefits and alternatives in full. Addressed all of the patient's questions and concerns regarding the procedure. The patient demonstrated knowledge and understanding. They wish to proceed with this procedure. Preparation The patient was prepped in the usual manner. A manager cardiac cath was present and in the room. Genitalia was prepped with betadine solution in a sterile manner. Prep: The patient was prepped in the usual manner. A manager cardiac cath was present and in the room. Genitalia was prepped with betadine solution in a sterile manner. Duplicate order Procedure code (CPT) selection complete Urodynamic Studies Consent Discussed risk and benefit or proposed procedure with the patient. Information consent for procedure given to the patient. Discussed technical aspects, risks, benefits and alternatives in full. Addressed all of the patient's questions and concerns regarding the procedure. The patient demonstrated knowledge and understanding. They wish to proceed with this procedure. Preparation The patient was prepped in the usual manner. A manager cardiac cath was present and in the room. Genitalia was prepped with betadine solution in a sterile manner. Procedure Complex Uroflow Complex uroflow performed by: Puja Yan Maximum urinary flow rate (mL/second): 9.5 Voiding time (seconds): 142 Voided volume (mL): 224 Residual urine (mL): 850 Cystometrogram Void Pressure Vaginal/rectal catheter type: rectal First sensation at (mL): 294 First detrussor pressure (cm H2O): 11 First desire at (mL): 437 First desire pressure (cm H2O): 3.2 Strong desire to void occured at (mL): 11 Strong desire detrussor pressure (cm H2O): 11 Maximum fill (mL): 700 Maximum fill detrussor pressure (cm H2O): 11 Voided volume (mL) with max detrussor pressure of (cm H2O): 300 mL, 20 cm H20 46182-Hfplpvalikdyfa w/ FINANCIAL RECRUITER 51303-Ulyxshn-Cwetlpfrilrv First 48752-Pjbc/Urinary Muscle Study 78256-Sfugx-Ybknezxuf Pressure Test Procedure code (CPT) selection complete Office Meds lidocaine HCl 2 % mucosal jelly in applicator Performing Provider: Puja Yan MD Performing Location: [facility] [place] [facility] Documented (not given) by: Puja Yan MD on 07/20/23 16:44 Dose Route Admin Location Dispensed Lot Number Expiration Date NDC Territory Supervisor 10 mL intra-urethral mL nitrofurantoin monohydrate/macrocrystals 100 mg capsule Performing Provider: Puja Yan MD Performing Location: [facility] [place] [facility] Documented (not given) by: Puja Yan MD on 07/20/23 16:44 Dose Route Admin Location Dispensed Lot Number Expiration Date NDC Territory Supervisor 100 mg PO cap nitrofurantoin monohydrate/macrocrystals 100 mg capsule Performing Provider: Puja Yan MD Performing Location: [facility] [place] [facility] Administered by: Franklin Trujillo LPN on 07/20/23 09:35 Dose Route Admin Location Dispensed Lot Number Expiration Date NDC Territory Supervisor 100 mg PO 1 cap Results AMB Urinalysis, Automated UA Leukoctes 0 Nichol/uL Last Edit by Franklin Trujillo LPN on 07/20/23 09:38 UA Nitrite Negative Last Edit by Franklin Trujillo LPN on 07/20/23 09:38 UA Urobilinogen 0 mg/dL Last Edit by Franklin Trujillo LPN on 07/20/23 09:38 UA Protein 15 mg/dL Last Edit by Franklin Trujillo LPN on 07/20/23 09:38 UA pH 6.0 Last Edit by Franklin Trujillo LPN on 07/20/23 09:38 UA Blood 0 Armaan/uL Last Edit by Franklin Trujillo LPN on 07/20/23 09:38 UA Specific [place] 1.020 Last Edit by Franklin Trujillo LPN on 07/20/23 09:38 UA Ketone Last Edit by Franklin Trujillo LPN on 07/20/23 09:38 UA Bilirubin 0 mg/dL Last Edit by Franklin Trujillo LPN on 07/20/23 09:38 UA Glucose 0 mg/dL Last Edit by Franklin Trujillo LPN on 07/20/23 09:38 Results Reviewed Results Reviewed: Laboratory Last Values Urine pH (Auto) 6.0 07/20/23 09:37 Specific [place] (Auto) 1.020 07/20/23 09:37 Urine Protein (Auto) 15 mg/dL 07/20/23 09:37 Glucose (UA)(Auto) 0 mg/dL 07/20/23 09:37 Urine Blood (Auto) 0 Armaan/uL 07/20/23 09:37 Urine Nitrite (Auto) Negative 07/20/23 09:37 Urine Bilirubin (Auto) 0 mg/dL 07/20/23 09:37 Urine Urobilinogen (Auto) 0 mg/dL 07/20/23 09:37 Leukocyte Esterase (Auto) 0 Nichol/uL 07/20/23 09:37 Assessment & Plan Assessment & Plan (1) Incomplete bladder emptying: Code(s): R33.9 - Retention of urine, unspecified (2) BPH w urinary obs/LUTS: Code(s): N40.1 - Benign prostatic hyperplasia with lower urinary tract symptoms; N13.8 - Other obstructive and reflux uropathy (3) Neurogenic bladder: Code(s): N31.9 - Neuromuscular dysfunction of bladder, unspecified Plan I discussed intermittent catheterizations. Continue Flomax twice a day. Start bethanechol 50 mg TID. Ordered US retroperitoneum. Follow-up with the HAND BULLDOZER in 6 weeks. Follow-up in 10 weeks. Orders: Orders AMB Urodynamics Studies Today R33.9 - Retention of urine, unspecified AMB Urinalysis Automated Today R33.9 - Retention of urine, unspecified AMB Urodynamics Studies Today N13.8 - Other obstructive and reflux uropathy, N40.1 - Benign prostatic hyperplasia with lower urinary tract symptoms, R33.9 - Retention of urine, unspecified Medications: New nitrofurantoin monohyd/m-cryst 100 mg 100 mg PO ONCE 1 cap 0RF N13.8 - Other obstructive and reflux uropathy, N40.1 - Benign prostatic hyperplasia with lower urinary tract symptoms, R33.9 - Retention of urine, unspecified lidocaine HCl 2% 10 mL intra-urethral ONCE 10 mL 0RF N13.8 - Other obstructive and reflux uropathy, N40.1 - Benign prostatic hyperplasia with lower urinary tract symptoms, R33.9 - Retention of urine, unspecified Patient Instructions: The patient had an opportunity to ask questions regarding treatment plan. All questions were answered. Imaging, Laboratory studies and physical exam results were discussed and reviewed in detail. No major barriers to understanding were identified. The patient expressed understanding and agreement with the above treatment plan. The patient is aware they should contact our office by phone for worsening of their current condition or the appearance of new symptoms. Compliance is encouraged with any medications and followup testing that is ordered. It is a privilege to be allowed the opportunity to participate in the urologic care of your patient. If you have any questions or concerns regarding treatment for the above conditions please do not hesitate to contact me. The office telephone contact is [phone]. This note is constructed in part using voice recognition software. While every effort has been made to ensure accuracy director of staff development errors may have been included. Yours sincerely, Puja Yan MD Coding Level of Care Code Est Pt Level 3 (14152) Diagnoses Incomplete bladder emptying R33.9 BPH w urinary obs/LUTS N40.1; N13.8 Neurogenic bladder N31.9 CPT Codes Urodynamic Studies - CPT: 40294-Pkfitxxmyqhxlk w/ FINANCIAL RECRUITER ([id number]) Urodynamic Studies - CPT: 88741-Ejewirr-Mxxtuihlspig First ([id number]) Urodynamic Studies - CPT: 61870-Wacf/Urinary Muscle Study ([id number]) Urodynamic Studies - CPT: 62225-Hzhie-Zrvxmfrzr Pressure Test ([id number])
== END 2023-07-20 10:41 | disposition home or self-care (01) ==
PROVIDERS: PCP Internal Medicine; Visit Provider Urology
DX: N31.9 Neuromuscular dysfunction of bladder, unspecified (principal); R33.9 Retention of urine, unspecified; N40.1 Benign prostatic hyperplasia with lower urinary tract symptoms; N13.8 Other obstructive and reflux uropathy
CPT/HCPCS: 51728; 51741; 51784; 51797

== ENCOUNTER → 2023-07-20 08:55 | Outpatient (BNVA) | payer MEDICARE, SELFPAY | PROVIDERS: PCP Internal Medicine; Visit Provider Urology | DX: N40.1 Benign prostatic hyperplasia with lower urinary tract symptoms (principal); N13.8 Other obstructive and reflux uropathy; R33.9 Retention of urine, unspecified; N31.9 Neuromuscular dysfunction of bladder, unspecified | CPT/HCPCS: 51728; 51741; 51784; 51797; 81003 ==

== ENCOUNTER 2023-08-05 08:10 | Outpatient (AMB) | payer MEDICARE, SELFPAY ==
--- NOTE | 2023-08-05 08:12 | A.OFFVIS_ITS ---
Intake Intake Visit Reasons: Prostate size and bladder muscle Intake Note: Patient presents today for a prostate size and bladder muscle: Meds: Tamsulosin & Finasteride Allergies to Antibiotic: No Known Allergies Blood Thinner: None PVR- >442 mL Laundry Tech Required: No Accompanied by: Self / Same As Patient Allergies diphenhydramine [From Benadryl] Allergy (Unknown, Verified 08/05/23 08:15) aggitated,itch,rash Medication List - Last Reconciled 08/05/23 by Puja Yan MD alprazolam 1 mg PO BID alprazolam 0.5 mg PO DAILY PRN amlodipine 10 mg PO DAILY atorvastatin 80 mg PO DAILY bethanechol chloride 50 mg PO TID 30 days duloxetine 60 mg PO DAILY finasteride (Proscar) 5 mg PO DAILY 90 days gabapentin 100 mg PO TID lamotrigine (Lamictal) 100 mg PO DAILY lamotrigine 150 mg PO DAILY losartan 100 mg (2 x 50 mg) PO DAILY 90 days metoprolol succinate ER 50 mg PO DAILY tamsulosin (Flomax) 0.4 mg PO BID HPI HPI Comments History of Present Illness Details Erwin is a 63-year-old male who presents today to the office for a follow-up. 08/05/2023? Erwin is a 62-year-old male who is being evaluated for voiding dysfunction. He was last seen by me on 07/20/2023 for urodynamics procedure. He has incomplete bladder emptying. He had office Cystoscopy on 05/18/23 which noted an trilobar enlargement of prostate. In addition urodynamics performed on 07/20/2023 was consistent with neurogenic bladder. Bladder scan PVR was > 442 mL. I have discussed treatment options to include resection of the prostate tissue, with the information discussed that this still may not allow adequate emptying the bladder as the bladder muscle is not working efficiently. 08/05/2023: Evaluation today?UA?Leukocyt es: negative; blood: negative. Review of charts: Labs PSA - 11/05/21---0.31 Imaging: Renal US - limited - Kidneys WNL, no stones or hydronephrosis 08/05/2023: Plan: Nurse visit pending for [facility] teaching. Continue Flomax BID. Continue bethanechol 50 mg TID. Continue Finasteride 5 mg dialy. PFSH Medical History CAD (coronary artery disease) Depression Dementia Hyperlipidemia Hypertension Colon polyps Chronic GERD GERD (gastroesophageal reflux disease) Anxiety Depression High cholesterol Hypertension Surgical History History of left knee surgery Hx of appendectomy Hx of colonoscopy Family History Father Past heart attack Mother Hypertension Social History Housing: House Alcohol intake: current Alcohol intake frequency: a few times a month Patient Tobacco Use Status: Never used Tobacco e-Cigarette/Vaping Use: Never Used Second Hand Smoke Exposure: No Advance Directives Date on File: 07/09/20 Current occupational status: employed Cognitive needs: No Hearing needs: No Vision needs: Yes Review of Systems Const All systems reviewed & are unremarkable except as noted in HPI and below Reports no additional complaints Eyes Reports no additional complaints ENT Reports no additional complaints Card Denies dyspnea Resp Denies cough and Denies dyspnea GI Reports no additional complaints Musc Reports no additional complaints Skin/Breast Denies rash and Denies unusual bruising Neuro Reports no additional complaints Psych Reports no additional complaints Endo Reports no additional complaints Heath/Lymph Reports no additional complaints Aller/Immun Reports no additional complaints Office Procedures Post Void Residual Post Residual Void Post Void Residual (PVR): 442 [id number] Void Residual by ultrasound Results AMB Urinalysis, Automated UA Leukoctes 0 Nichol/uL Last Edit by SRIRAM Conway on 08/05/23 08:38 UA Nitrite Negative Last Edit by SRIRAM Conway on 08/05/23 08:38 UA Urobilinogen 0.2 mg/dL Last Edit by SRIRAM Conway on 08/05/23 08:3 8 UA Protein 0 mg/dL Last Edit by Nelida Martinez, A on 08/05/23 08:38 UA pH 6.0 Last Edit by Nelida Martinez, RMA on 08/05/23 08:38 UA Blood 0 Armaan/uL Last Edit by Nelida Martinez, RMA on 08/05/23 08:38 UA Specific Wilmot 1.025 Last Edit by Nelida Martinez, A on 08/05/23 08: 38 UA Ketone Negative Last Edit by Nelida Martinez, A on 08/05/23 08:38 UA Bilirubin 0 mg/dL Last Edit by Nelida Samaniegonatali A on 08/05/23 08:38 UA Glucose 0 mg/dL Last Edit by Nelida Martinez, A on 08/05/23 08:38 Results Reviewed Results Reviewed: Laboratory Last Values Urine pH (Auto) 6.0 08/05/23 08:25 Specific Wilmot (Auto) 1.025 08/05/23 08:25 Urine Protein (Auto) 0 mg/dL 08/05/23 08:25 Glucose (UA)(Auto) 0 mg/dL 08/05/23 08:25 Urine Ketones (Auto) Negative 08/05/23 08:25 Urine Blood (Auto) 0 Armaan/uL 08/05/23 08:25 Urine Nitrite (Auto) Negative 08/05/23 08:25 Urine Bilirubin (Auto) 0 mg/dL 08/05/23 08:25 Urine Urobilinogen (Auto) 0.2 mg/dL 08/05/23 08:25 Leukocyte Esterase (Auto) 0 Nichol/uL 08/05/23 08:25 Date of Service: 04/24/23 EXAMINATION: US RETROPERITONEAL LIMITED (RENAL ONLY) CLINICAL INFORMATION: Retention of urine, unspecified. COMPARISON: None available. TECHNIQUE: Real-time imaging of the kidneys. FINDINGS: RIGHT KIDNEY: 10.6 x 6.1 x 5.5 cm (SAG x AP x TRV). The kidney is normal in size, contour, and echogenicity. Renal cortical thickness is normal. No calculi or focal parenchymal lesions. No hydronephrosis. LEFT KIDNEY: 11.3 x 6.7 x 5.9 cm (SAG x AP x TRV). The kidney is normal in size, contour, and echogenicity. Renal cortical thickness is normal. No calculi or focal parenchymal lesions. No hydronephrosis. IMPRESSION: Unremarkable renal ultrasound. Assessment & Plan Assessment & Plan (1) Incomplete bladder emptying: Code(s): R33.9 - Retention of urine, unspecified (2) BPH w urinary obs/LUTS: Code(s): N40.1 - Benign prostatic hyperplasia with lower urinary tract symptoms; N13.8 - Other obstructive and reflux uropathy (3) Neurogenic bladder: Code(s): N31.9 - Neuromuscular dysfunction of bladder, unspecified Plan Nurse visit pending for CIC teaching. Continue Flomax BID. Continue bethanechol 50 mg TID. Continue Finasteride 5 mg dialy. Orders: Orders AMB Urinalysis Automated Today Z13.9 - Encounter for screening, unspecified AMB Post Void Residual by ultrasound Today N39.8 - Other specified disorders of urinary system US retroperitoneal comp Today N13.8 - Other obstructive and reflux uropathy, N31.9 - Neuromuscular dysfunction of bladder, unspecified, N40.1 - Benign prostatic hyperplasia with lower urinary tract symptoms, R33.9 - Retention of urine, unspecified Patient Instructions: The patient had an opportunity to ask questions regarding treatment plan. All questions were answered. Imaging, Laboratory studies and physical exam results were discussed and reviewed in detail. No major barriers to understanding were identified. The patient expressed understanding and agreement with the above treatment plan. The patient is aware they should contact our office by phone for worsening of their current condition or the appearance of new symptoms. Compliance is encouraged with any medications and followup testing that is ordered. It is a privilege to be allowed the opportunity to participate in the urologic care of your patient. If you have any questions or concerns regarding treatment for the above conditions please do not hesitate to contact me. The office t elephone contact is [phone]. This note is constructed in part using voice recognition software. While every effort has been made to ensure accuracy investment associate errors may have been included. Yours sincerely, Puja Yan MD Coding Level of Care Code Est Pt Level 4 (53947) Diagnoses Incomplete bladder emptying R33.9 BPH w urinary obs/LUTS N40.1; N13.8 Neurogenic bladder N31.9 CPT Codes Post Residual Void - PVR CPT Code: 27922-Qsvf Void Residual by ultrasound ([id number])
== END 2023-08-05 09:09 | disposition home or self-care (01) ==
PROVIDERS: PCP Internal Medicine; Visit Provider Urology
DX: R33.9 Retention of urine, unspecified (principal); N40.1 Benign prostatic hyperplasia with lower urinary tract symptoms; N13.8 Other obstructive and reflux uropathy; N31.9 Neuromuscular dysfunction of bladder, unspecified; Z13.9 Encounter for screening, unspecified
CPT/HCPCS: 99214

== ENCOUNTER → 2023-08-05 08:10 | Outpatient (BNVA) | payer MEDICARE, SELFPAY | PROVIDERS: PCP Internal Medicine; Visit Provider Urology | DX: N40.1 Benign prostatic hyperplasia with lower urinary tract symptoms (principal); R33.9 Retention of urine, unspecified; N13.8 Other obstructive and reflux uropathy; N31.9 Neuromuscular dysfunction of bladder, unspecified | CPT/HCPCS: 51798; 81003; 99212 ==

== ENCOUNTER → 2023-08-31 08:51 | Outpatient (BNVA) | payer MEDICARE, SELFPAY | PROVIDERS: PCP Internal Medicine; Visit Provider Urology | DX: N40.1 Benign prostatic hyperplasia with lower urinary tract symptoms (principal); N13.8 Other obstructive and reflux uropathy; R33.9 Retention of urine, unspecified | CPT/HCPCS: 51701; 51798 ==

== ENCOUNTER 2023-09-10 10:03 | Outpatient (REF) | payer MEDICARE, SELFPAY ==
--- NOTE | ~2023-09-10 | US_ITS ---
EXAMINATION: US RETROPERITONEAL COMPLETE (RENAL) CLINICAL INFORMATION: Neuromuscular dysfunction of bladder, unspecified. Please measure prostate. COMPARISON: Renal ultrasound 04/24/2023. TECHNIQUE: Real-time imaging of the kidneys and bladder. FINDINGS: RIGHT KIDNEY: 9.8 x 6.3 x 5.5 cm (SAG x AP x TRV). The kidney is normal in size, contour, and echogenicity. Renal cortical thickness is normal. No calculi or focal parenchymal lesions. No hydronephrosis. LEFT KIDNEY: 11.2 x 6.3 x 5.5 cm (SAG x AP x TRV). The kidney is normal in size, contour, and echogenicity. Renal cortical thickness is normal. No calculi or focal parenchymal lesions. No hydronephrosis. BLADDER: Well distended and normal. Bilateral ureteral jets are demonstrated. Prevoid bladder volume is 172 mL. Postvoid bladder volume was not obtained. The patient was unable to void. The prostate measures 26 mL in volume. US/US retroperitoneal comp IMPRESSION: 1. Normal appearance of the kidneys. 2. Normal appearance of the bladder. 3. The patient was unable to void. 4. No significant enlargement of the prostate.
== END 2023-09-10 10:04 | disposition home or self-care (01) ==
LOC: HO.US 10:03
PROVIDERS: PCP Internal Medicine; Visit Provider Urology
DX: N31.9 Neuromuscular dysfunction of bladder, unspecified (principal); N40.1 Benign prostatic hyperplasia with lower urinary tract symptoms; N13.8 Other obstructive and reflux uropathy; R33.9 Retention of urine, unspecified
CPT/HCPCS: 76770

== ENCOUNTER 2023-09-24 09:44 | Outpatient (REF) | payer MEDICARE, SELFPAY | END 2023-09-24 09:45 | disposition home or self-care (01) | LOC: HO.LAB 09:44 | PROVIDERS: PCP Internal Medicine; Visit Provider Urology | DX: N39.0 Urinary tract infection, site not specified (principal) | CPT/HCPCS: 51798; 81003; 87086; 87088; 87186; 99212 ==

== ENCOUNTER 2023-09-24 09:44 | Outpatient (AMB) | payer MEDICARE, SELFPAY ==
--- NOTE | 2023-09-24 10:14 | A.OFFVIS_ITS ---
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 Accompanied by: Self / Same As Patient Allergies diphenhydramine [From Benadryl] Allergy (Unknown, Verified 10/21/23 10:54) aggitated,itch,rash Medication List - Last Reconciled 09/24/23 by Puja Yan MD alprazolam 1 mg PO BID alprazolam 0.5 mg PO DAILY PRN amlodipine 10 mg PO DAILY amoxicillin-pot clavulanate 500-125 mg (Augmentin) 1 tab PO BID atorvastatin 80 mg PO DAILY bethanechol chloride 50 mg PO TID 30 days duloxetine 60 mg PO DAILY finasteride (Proscar) 5 mg PO DAILY 90 days gabapentin 100 mg PO TID lamotrigine (Lamictal) 100 mg PO DAILY lamotrigine 150 mg PO DAILY losartan 100 mg (2 x 50 mg) PO DAILY 90 days metoprolol succinate ER 50 mg PO DAILY tamsulosin (Flomax) 0.4 mg PO BID HPI HPI Comments History of Present Illness Details Erwin is a 63-year-old male who presents today to the office for a follow-up. 09/24/23-- Here for FU. He is followed fo r voiding dysfunction and MISAEL. He was instructed on CIC and bethanochol, flomax and proscar have been prescribed. He is here post renal US. I have reviewed the results with him - Kidneys WNL, No hydronephrosis, bladder volume measured 172 mL, he did not void at time of testing. He complains that urine is cloudy with intermittent dysuria. Review of chart: Erwin is a 62-year-old male who is being evaluated for voiding dysfunction. He has incomplete bladder emptying. 08/05/2023?Bladder scan PVR was > 442 mL . 07/20/2023 for urodynamics procedure. ur odynamics performed on 07/20/2023 was consistent with neurogenic bladder. Cystoscopy on 05/18/23 which noted an trilobar enlargement of prostate. Labs: PSA - 11/05/21---0.31 Imaging: Renal US - limited - Kidneys WNL, no stones or hydronephrosis 09/24/23--augmentin 7 dy stop prosdcsr on f/u Continue Flomax BID. Continue bethanechol 50 mg TID. cont CIC PFSH Medical History (Updated 10/28/23 @ 12:56 by Puja Yan MD) CAD (coronary artery disease) Depression Dementia Hyperlipidemia Hypertension Colon polyps Chronic GERD GERD (gastroesophageal reflux disease) Anxiety Depression High cholesterol Surgical History History of esophagogastroduodenoscopy (EGD) History of left knee surgery Hx of appendectomy Hx of colonoscopy Family History Father Past heart attack Mother Hypertension Social History Housing: House Alcohol intake: current Alcohol intake frequency: 0-2 drinks per day Patient Tobacco Use Status: Never used Tobacco e-Cigarette/Vaping Use: Never Used Second Hand Smoke Exposure: No Use of substances other than those prescribed or required for medical reasons: No Are you DNR?: No Advance Directives: No Advance Directives Information Provided: Yes Advance Directives Date on File: 07/09/20 Current occupational status: employed Cognitive needs: No Hearing needs: No Vision needs: Yes Review of Systems Const All systems reviewed & are unremarkable except as noted in HPI and below Reports no additional complaints Eyes Reports no additional complaints ENT Reports no additional complaints Card Denies dyspnea Resp Denies cough and Denies dyspnea GI Reports no additional complaints Musc Reports no additional complaints Skin/Breast Denies rash and Denies unusual bruising Neuro Reports no additional complaints Psych Reports no additional complaints Endo Reports no additional complaints Heath/Lymph Reports no additional complaints Aller/Immun Reports no additional complaints Office Procedures Post Void Residual Post Residual Void Post Void Residual (PVR): 228 [id number] Void Residual by ultrasound Results AMB Urinalysis, Automated UA Leukoctes 70 Nichol/uL Last Edit by SRIRAM Conway on 09/24/23 10:30 UA Nitrite Positive Last Edit by SRIRAM Conway on 09/24/23 10:30 UA Urobilinogen 0.2 mg/dL Last Edit by SRIRAM Conway on 09/24/23 10:3 0 UA Protein 15 mg/dL Last Edit by SRIRAM Conway on 09/24/23 10:30 UA pH 6.0 Last Edit by SRIRAM Conway on 09/24/23 10:30 UA Blood 200 Armaan/uL Last Edit by SRIRAM Conway on 09/24/23 10:30 3+ Nelida Martinez 09/24/23 10:30 UA Specific Orange 1.025 Last Edit by SRIRAM Conway on 09/24/23 10: 30 UA Ketone Negative Last Edit by SRIRAM Conway on 09/24/23 10:30 UA Bilirubin 0 mg/dL Last Edit by SRIRAM Conway on 09/24/23 10:30 UA Glucose 0 mg/dL Last Edit by SRIRAM Conway on 09/24/23 10:30 Results Reviewed Results Reviewed: Laboratory Last Values Urine pH (Auto) 6.0 09/24/23 10:28 Specific Orange (Auto) 1.025 09/24/23 10:28 Urine Protein (Auto) 15 mg/dL 09/24/23 10:28 Glucose (UA)(Auto) 0 mg/dL 09/24/23 10:28 Urine Ketones (Auto) Negative 09/24/23 10:28 Urine Blood (Auto) 200 Armaan/uL 09/24/23 10:28 Urine Nitrite (Auto) Positive 09/24/23 10:28 Urine Bilirubin (Auto) 0 mg/dL 09/24/23 10:28 Urine Urobilinogen (Auto) 0.2 mg/dL 09/24/23 10:28 Leukocyte Esterase (Auto) 70 Nichol/uL 09/24/23 10:28 Date of Service: 09/10/23 EXAMINATION: US RETROPERITONEAL COMPLETE (RENAL) CLINICAL INFORMATION: Neuromuscular dysfunction of bladder, unspecified. Please measure prostate. COMPARISON: Renal ultrasound 04/24/2023. TECHNIQUE: Real-time imaging of the kidneys and bladder. FINDINGS: RIGHT KIDNEY: 9.8 x 6.3 x 5.5 cm (SAG x AP x TRV). The kidney is normal in size, contour, and echogenicity. Renal cortical thickness is normal. No calculi or focal parenchymal lesions. No hydronephrosis. LEFT KIDNEY: 11.2 x 6.3 x 5.5 cm (SAG x AP x TRV). The kidney is normal in size, contour, and echogenicity. Renal cortical thickness is normal. No calculi or focal parenchymal lesions. No hydronephrosis. BLADDER: Well distended and normal. Bilateral ureteral jets are demonstrated. Prevoid bladder volume is 172 mL. Postvoid bladder volume was not obtained. The patient was unable to void. The prostate measures 26 mL in volume. IMPRESSION: 1. Normal appearance of the kidneys. 2. Normal appearance of the bladder. 3. The patient was unable to void. 4. No significant enlargement of the prostate. Assessment & Plan Assessment & Plan (1) Incomplete bladder emptying: Code(s): R33.9 - Retention of urine, unspecified (2) BPH w urinary obs/LUTS: Code(s): N40.1 - Benign prostatic hyperplasia with lower urinary tract symptoms; N13.8 - Other obstructive and reflux uropathy (3) Neurogenic bladder: Code(s): N31.9 - Neuromuscular dysfunction of bladder, unspecified (4) UTI (urinary tract infection): Code(s): N39.0 - Urinary tract infection, site not specified Plan augmentin 500mg bid 7 dy stop prosdcsr on f/u Continue Flomax BID. Continue bethanechol 50 mg TID. cont CIC Orders: Orders AMB Post Void Residual by ultrasound 09/24/23 N39.8 - Other specified disorders of urinary system AMB Urinalysis Automated 09/24/23 Z13.9 - Encounter for screening, unspecified Urine Culture 09/24/23 N39.0 - Urinary tract infection, site not specified Medications: New amoxicillin-pot clavulanate 500-125 mg (Augmentin) 1 tab PO BID 14 tabs 0RF Patient Instructions: The patient had an opportunity to ask questions regarding treatment plan. All questions were answered. Imaging, Laboratory studies and physical exam results were discussed and reviewed in detail. No major barriers to understanding were identified. The patient expressed understanding and agreement with the above treatment plan. The patient is aware they should contact our office by phone for worsening of their current condition or the appearance of new symptoms. Compliance is encouraged with any medications and followup testing that is ordered. It is a privilege to be allowed the opportunity to participate in the urologic care of your patient. If you have any questions or concerns regarding treatment for the above conditions please do not hesitate to contact me. The office telephone contact is [phone]. This note is constructed in part using voice recognition software. While every effort has been made to ensure accuracy launch manager errors may have been included. Yours sincerely, Puja Yan MD Coding Level of Care Code Est Pt Level 4 (53181) Diagnoses Incomplete bladder emptying R33.9 BPH w urinary obs/LUTS N40.1; N13.8 Neurogenic bladder N31.9 UTI (urinary tract infection) N39.0 CPT Codes Post Residual Void - PVR CPT Code: 44198-Fatg Void Residual by ultrasound ([id number])
== END 2023-09-24 11:03 | disposition home or self-care (01) ==
PROVIDERS: PCP Internal Medicine; Visit Provider Urology
DX: R33.9 Retention of urine, unspecified (principal); N40.1 Benign prostatic hyperplasia with lower urinary tract symptoms; N13.8 Other obstructive and reflux uropathy; N31.9 Neuromuscular dysfunction of bladder, unspecified; N39.0 Urinary tract infection, site not specified
CPT/HCPCS: 99214

== ENCOUNTER 2023-10-21 10:34 | Day surgery (SDC) | payer MEDICARE, SELFPAY ==
[2023-10-12 14:52] VITALS: BMI 30.9
--- NOTE | 2023-10-13 10:01 | P.CONAN_ITS ---
Documented by User: Stephanie López NP 10/13/23 10:03 HPI - Anesthesia Eval Consult details Narrative: 63yo M for Upper Endoscopy Follows [facility] cardiology for nonobstructive CAD by cath. No f/u >1 year [facility] Active Problems Active Problems: All Active Problems (Updated 10/12/23 @ 14:53 by Keila Grimes RN) Neurogenic bladder (Acute) BPH w urinary obs/LUTS (Acute) Incomplete bladder emptying (Acute) Prostatitis (Acute) Hematuria (Acute) Back pain (Acute) Encounter for initial annual wellness visit (AWV) in Medicare patient (Acute) Concussion (Acute) CAD (coronary artery disease) (Acute) Depression (Acute) Dementia (Acute) Hyperlipidemia (Acute) Hypertension (Acute) Colon polyps (Acute) Chronic GERD (Acute) Past Medical History Medical History CAD (coronary artery disease) Depression Dementia Hyperlipidemia Hypertension Colon polyps Chronic GERD GERD (gastroesophageal reflux disease) Anxiety Depression High cholesterol Family History Family History Father Past heart attack Mother Hypertension Surgical History Surgical History History of esophagogastroduodenoscopy (EGD) History of left knee surgery Hx of appendectomy Hx of colonoscopy Social History Social History Housing: House Alcohol intake: current Alcohol intake frequency: 0-2 drinks per day Patient Tobacco Use Status: Never used Tobacco e-Cigarette/Vaping Use: Never Used Second Hand Smoke Exposure: No Use of substances other than those prescribed or required for medical reasons: No Are you DNR?: No Advance Directives: No Advance Directives Information Provided: Yes Advance Directives Date on File: 07/09/20 Current occupational status: employed Cognitive needs: No Hearing needs: No Vision needs: Yes Meds Allergies Allergy/AdvReac Type Severity Reaction Status Date / Time diphenhydramine Allergy Unknown aggitated,i Verified 10/21/23 10:54 [From Benadryl] tch,rash Home Medications Medication Instructions Recorded Confirmed Last Taken Type alprazolam 1 mg tablet 1 mg PO BID 07/03/20 10/12/23 Unknown History duloxetine 60 mg capsule,delayed 60 mg PO DAILY 11/01/21 10/12/23 Unknown History release lamotrigine 100 mg tablet 100 mg PO DAILY 03/05/23 09/24/23 Unknown History (Lamictal) alprazolam 0.5 mg tablet 0.5 mg PO DAILY PRN Anxiety 05/18/23 10/12/23 Unknown History gabapentin 100 mg capsule 100 mg PO TID 05/18/23 09/24/23 Unknown History lamotrigine 150 mg tablet 150 mg PO QAM 05/18/23 10/12/23 Unknown History Exam Height,Weight and Vital Signs: Height 5 ft 8 in Weight 92.079 kg Assessment and Plan Assessment Anesthesia Assessment: Chart Reviewed Documented by User: Andre Zacarias MD 10/21/23 12:34 [facility] Past Medical History Medical History CAD (coronary artery disease) Depression Dementia Hyperlipidemia Hypertension Colon polyps Chronic GERD GERD (gastroesophageal reflux disease) Anxiety Depression High cholesterol Family History Family History Father Past heart attack Mother Hypertension Family history of problems with anesthesia: No Surgical History Surgical History History of esophagogastroduodenoscopy (EGD) History of left knee surgery Hx of appendectomy Hx of colonoscopy History of Problems with Anesthesia: No Social History Social History Housing: House Alcohol intake: current Alcohol intake frequency: 0-2 drinks per day Patient Tobacco Use Status: Never used Tobacco e-Cigarette/Vaping Use: Never Used Second Hand Smoke Exposure: No Use of substances other than those prescribed or required for medical reasons: No Are you DNR?: No Advance Directives: No Advance Directives Information Provided: Yes Advance Directives Date on File: 07/09/20 Current occupational status: employed Cognitive needs: No Hearing needs: No Vision needs: Yes Meds Allergies Allergy/AdvReac Type Severity Reaction Status Date / Time diphenhydramine Allergy Unknown aggitated,i Verified 10/21/23 10:54 [From Benadryl] tch,rash Home Medications Medication Instructions Recorded Confirmed Last Taken Type alprazolam 1 mg tablet 1 mg PO BID 07/03/20 10/12/23 Unknown History duloxetine 60 mg capsule,delayed 60 mg PO DAILY 11/01/21 10/12/23 Unknown Hi story release lamotrigine 100 mg tablet 100 mg PO DAILY 03/05/23 09/24/23 Unknown History (Lamictal) alprazolam 0.5 mg tablet 0.5 mg PO DAILY PRN Anxiety 05/18/23 10/12/23 Unknown History gabapentin 100 mg capsule 100 mg PO TID 05/18/23 09/24/23 Unknown History lamotrigine 150 mg tablet 150 mg PO QAM 05/18/23 10/12/23 Unknown History Exam Airway Mallampati Class: II TM Dist: >3cm Neck ROM: Full Loose/Missing/Broken Teeth: No Heart: ok. CAD by cath. Lungs: ok Assessment and Plan Assessment Anesthesia Assessment: Anesthesia Plan Discussed Final Anesthetic Review Family History of Problems with Anesthesia: No History of Problems with Anesthesia: No NPO: Yes ASA Class: III Final Preanesthetic Review: No Changes in Pt Med Stat, Meds/Allgs Chart Reviewed, Consent Obtained/Reviewed and Anes Risks/Benef Reviewed Patient Risk: Intermediate Procedure Risk: Intermediate Anesthetic Plan Anesthetic Plan: Agree w/ Assess. and Plan and TIVA Disposition: Standard PACU
[2023-10-21 10:46] VITALS: BMI 31.6
[2023-10-21 11:03] VITALS: BP 118/78; PULSE 69; RESP 16; TEMP 36.3; O2SAT 98
[2023-10-21] MEDS: Lactated Ringers 1,000 ML 100 ML IVCONT (11:05)
[2023-10-21 12:49] VITALS: BP 98/65; PULSE 73; RESP 16; TEMP 36.6; O2SAT 91
--- NOTE | 2023-10-21 12:49 | PM.OP ---
Brief Operative Note Date of Service: 10/21/23 Pre-op diagnosis: Gama's Post-op diagnosis: other (Same, GERD, Gastritis) Procedure: EGD with biopsies Surgeon: Trino Holt MD Anesthesia: MAC Was an Hand Spray Operator used for this Procedure?: No Estimated blood loss (mL): 2.0 Pathology: other (A. EG Junction at 38cm B. Gastric antrum) Condition: stable Disposition: PACU
[2023-10-21 13:04] VITALS: BP 112/79; PULSE 68; RESP 16; TEMP 36.6; O2SAT 94
--- NOTE | 2023-10-21 13:27 | OP_ITS ---
DATE OF SERVICE: 10/21/2023 SURGEON: Trino Holt MD INDICATIONS: The patient presents for evaluation of Gama's esophagus and gastroesophageal reflux. Full consent was obtained from him for this, including risks of bleeding and perforation. PREOPERATIVE DIAGNOSIS: POSTOPERATIVE DIAGNOSIS: PROCEDURE PERFORMED: Esophagogastroduodenoscopy with biopsies. ESTIMATED BLOOD LOSS: COMPLICATIONS: ANESTHESIA: Monitored anesthesia care. ASSISTANTS: SPECIMENS: PREOPERATIVE DIAGNOSES: Gastroesophageal reflux and history of Gama's esophagus. POSTOPERATIVE DIAGNOSES: Mild antral gastritis, minimal hiatal hernia. DESCRIPTION OF PROCEDURE: The patient was placed in the left lateral decubitus position. The Olympus video gastroscope was passed in the posterior oropharynx and upper esophagus under direct vision. The scope was passed slowly to the distal esophagus. The gastroesophageal junction at 38 cm had some areas of slight irregularity consistent with reflux and possibly small areas of Louis'st mucosa. There was no evidence of any esophagitis nor any lesions. There was evidence of a minimal hiatal hernia. The scope easily entered the stomach and was advanced to the pylorus. The duodenum was cannulated to the descending portion. The duodenum including the bulb appeared normal without mass or ulceration. Scope was withdrawn back in the stomach. There was some mild antral gastritis with erythema and edema. There were no erosions or ulceration. There was good peristalsis. Biopsies were obtained from the antrum. The scope was retroflexed visualizing the proximal stomach carefully, which appeared normal, without mass or ulceration. His previous fundoplication anatomy appeared intact. The scope was straightened and withdrawn back to the esophagus. Biopsies were obtained at the EG junction at 38 cm. Proximal to this, the esophageal mucosa appeared normal. The scope was withdrawn from the patient. He tolerated procedure well and was returned to recovery area in stable condition. IMPRESSION: 1. Minimal hiatal hernia, history of reflux, rule out Gama's esophagus. 2. Minimal changes of antral gastritis. PLAN: The results of biopsies will be checked. At this point, he remains asymptomatic ever since his fundoplication and is not using any particular medication for acid reflux. I would recommend a repeat upper endoscopy in 3 years. He will be due for a followup screening colonoscopy in 2024 as well. He will see me otherwise on a p.r.n. basis. MD ANASTASIYA Parks/JYOTSNA / [phone] GLEN
== END 2023-10-21 14:30 | disposition home or self-care (01) ==
PROVIDERS: PCP Internal Medicine; Visit Provider Internal Medicine
PROC: 0DJ08ZZ Inspection of Upper Intestinal Tract, Via Natural or Artificial Opening Endoscopic (ICD-10-PCS; CPT 43235; principal; 2023-10-21 11:40)
DX: K22.70 Barrett's esophagus without dysplasia (principal); K21.9 Gastro-esophageal reflux disease without esophagitis; K29.50 Unspecified chronic gastritis without bleeding; K44.9 Diaphragmatic hernia without obstruction or gangrene; I10 Essential (primary) hypertension; E78.00 Pure hypercholesterolemia, unspecified; F41.8 Other specified anxiety disorders; Z79.899 Other long term (current) drug therapy; Z98.890 Other specified postprocedural states
CPT/HCPCS: 43239; 88305; 88313; 88342; J1885; J2704

== ENCOUNTER 2024-01-21 09:50 | Outpatient (AMB) | payer MEDICARE, SELFPAY ==
--- NOTE | 2024-01-21 10:01 | A.OFFVIS_ITS ---
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 Accompanied by: Self / Same As Patient Allergies diphenhydramine [From Benadryl] Allergy (Unknown, Verified 01/21/24 10:01) aggitated,itch,rash Medication List - Last Reconciled 01/21/24 by Puja Yan MD alprazolam 1 mg PO BID alprazolam 0.5 mg PO DAILY PRN amlodipine 10 mg PO DAILY atorvastatin 80 mg PO DAILY duloxetine 60 mg PO DAILY lamotrigine (Lamictal) 100 mg PO DAILY lamotrigine 150 mg PO QAM losartan 100 mg (2 x 50 mg) PO DAILY 90 days metoprolol succinate ER 50 mg PO DAILY tamsulosin (Flomax) 0.4 mg PO BID HPI Comments Details: 01/21/2024- Erwin is a 63-year-old male who presents today to the office for a follow-up. He is followed for voiding dysfunction, neurogenic bladder, incomplete bladder emptying. He has been prescribed tamsulosin b.i.d., bethane chol, and Proscar. And he has been instructed on CIC management. He states that he has been doing well he catheterizes with the 16 Estonian catheter 3 times a day. He denies dysuria or gross hematuria. He states that the bethanechol is expensive and he does not feel that it has been helping. I discussed previously plan to discontinue Proscar on follow-up. Bahman is tolerating the tamsulosin. Plan discussed continue CIC 3 times a day. Discontinue bethanechol and Proscar. We will continue tamsulosin b.i.d.. Follow-up in 6 months. Review of chart: 09/24/23-- Here for FU. He is followed for voiding dysfunction and MISAEL. He was instructed on CIC and bethanochol, flomax and proscar have been prescribed. He is here post renal US. I have reviewed the results with him - Kidneys WNL, No hydronephrosis, bladder volume measured 172 mL, he did not void at time of testing. He complains that urine is cloudy with intermittent dysuria. Plan discussed augmentin 7 dy, stop prosdcsr on f/u Continue Flomax BID. Continue bethanechol 50 mg TID. cont CIC Erwin is a 62-year-old male who is being evaluated for voiding dysfunction. He has incomplete bladder emptying. 08/05/2023?Bladder scan PVR was > 442 mL. 07/20/2023 for urodynamics procedure. urodynamics performed on 07/20/2023 was consistent with neurogenic bladder. Cystoscopy on 05/18/23 which noted an trilobar enlargement of prostate. Labs: PSA - 11/05/21---0.31 Imaging: Renal US - limited - Kidneys WNL, no stones or hydronephrosis 01/21/2024--continue CIC 3 times a day. Discontinue bethanechol and Proscar. We will continue tamsulosin b.i.d.. Follow-up in 6 months. [facility] Medical History CAD (coronary artery disease) Depression Dementia Hyperlipidemia Hypertension Colon polyps Chronic GERD GERD (gastroesophageal reflux disease) Anxiety Depression High cholesterol Surgical History History of esophagogastroduodenoscopy (EGD) History of left knee surgery Hx of appendectomy Hx of colonoscopy Family History Father Past heart attack Mother Hypertension Social History Housing: House Alcohol intake: current Alcohol intake frequency: 0-2 drinks per day Patient Tobacco Use Status: Never used Tobacco e-Cigarette/Vaping Use: Never Used Second Hand Smoke Exposure: No Advance Directives Date on File: 07/09/20 Current occupational status: employed Cognitive needs: No Hearing needs: No Vision needs: Yes Review of Systems Const All systems reviewed & are unremarkable except as noted in HPI and below Reports no additional complaints Eyes Reports no additional complaints ENT Reports no additional complaints Card Reports no additional complaints Resp Reports no additional complaints GI Reports no additional complaints Reports as per HPI Musc Reports no additional complaints Skin/Breast Reports system reviewed and no additional complaints, except as documented Neuro Reports no additional complaints Psych Reports no additional complaints Endo Reports no additional complaints Heath/Lymph Reports no additional complaints Aller/Immun Reports no additional complaints Assessment & Plan Assessment & Plan (1) Incomplete bladder emptying: Code(s): R33.9 - Retention of urine, unspecified Category: Medical (2) BPH w urinary obs/LUTS: Code(s): N40.1 - Benign prostatic hyperplasia with lower urinary tract symptoms; N13.8 - Other obstructive and reflux uropathy Category: Medical (3) Neurogenic bladder: Code(s): N31.9 - Neuromuscular dysfunction of bladder, unspecified Category: Medical Plan Continue tamsulosin b.i.d., continue CIC 3 times a day. Discontinue Proscar and bethanechol. Follow-up in 6 months. Medications: Refilled tamsulosin (Flomax) 0.4 mg PO BID 180 caps 2RF Patient Instructions: The patient had an opportunity to ask questions regarding treatment plan. The patient expressed understanding and agreement with the above treatment plan. The patient is aware they should contact our office by phone for worsening of their current condition or the appearance of new symptoms. Compliance is encouraged with any medications and followup testing that is ordered. It is a privilege to be allowed the opportunity to participate in the urologic care of your patient. If you have any questions or concerns regarding treatment for the above conditions please do not hesitate to contact me. The office telephone contact is [phone]. This note is constructed in part using voice recognition software. While every effort has been made to ensure accuracy electrical assistant errors may have been included. Yours sincerely, Puja Yan MD Coding Level of Care Code Est Pt Level 4 (35660) Diagnoses Incomplete bladder emptying R33.9 BPH w urinary obs/LUTS N40.1; N13.8 Neurogenic bladder N31.9
== END 2024-01-21 11:03 | disposition home or self-care (01) ==
PROVIDERS: PCP Internal Medicine; Visit Provider Urology
DX: R33.9 Retention of urine, unspecified (principal); N40.1 Benign prostatic hyperplasia with lower urinary tract symptoms; N13.8 Other obstructive and reflux uropathy; N31.9 Neuromuscular dysfunction of bladder, unspecified
CPT/HCPCS: 99214

== ENCOUNTER → 2024-01-21 09:50 | Outpatient (BNVA) | payer MEDICARE, SELFPAY | PROVIDERS: PCP Internal Medicine; Visit Provider Urology | DX: N40.1 Benign prostatic hyperplasia with lower urinary tract symptoms (principal); N31.9 Neuromuscular dysfunction of bladder, unspecified; N13.8 Other obstructive and reflux uropathy; R33.9 Retention of urine, unspecified | CPT/HCPCS: 99212 ==

== ENCOUNTER 2024-03-31 11:00 | Outpatient (AMB) | payer MEDICARE, SELFPAY ==
--- NOTE | 2024-03-31 11:04 | AM.OFFVISMDC ---
Intake Vital Signs 03/31/24 11:07 Height 5 ft 8 in Weight 203 lb BMI 30.9 BP 120/70 Blood Pressure Location Lt brachial Position Sitting Pulse 81 Pulse Source Pulse Oximeter Pulse Oximetry (%) 93 Oxygen Delivery Method Room Air Intake Visit Reasons: medicare wellness Intake Note: Patient is here for an Annual Wellness Visit. Order Tracer Required: No Director Of Strategic Initiatives: Director Of Strategic Initiatives offered & declined Accompanied by: Self / Same As Patient Allergies diphenhydramine [From Benadryl] Allergy (Unknown, Verified 03/31/24 11:07) aggitated,itch,rash Medication List - Last Reconciled 04/01/24 by Dimas Fish MD alprazolam 1 mg PO BID alprazolam 0.5 mg PO DAILY PRN amlodipine 10 mg PO DAILY atorvastatin 80 mg PO DAILY duloxetine 60 mg PO DAILY lamotrigine 150 mg PO QAM losartan 100 mg (2 x 50 mg) PO DAILY 90 days metoprolol succinate ER 50 mg PO DAILY tamsulosin (Flomax) 0.4 mg PO BID HPI medicare wellness HPI Details HTN and anxiety; doing well; compliant [facility] Medical History CAD (coronary artery disease) Depression Dementia Hyperlipidemia Hypertension Colon polyps Chronic GERD GERD (gastroesophageal reflux disease) Anxiety Depression High cholesterol Surgical History History of esophagogastroduodenoscopy (EGD) History of left knee surgery Hx of appendectomy Hx of colonoscopy Family History (Updated 03/31/24 @ 11:12 by SRIRAM Patterson) Father Past heart attack Mother Hypertension Other Mental health disorder Social History (Updated 03/31/24 @ 11:12 by SRIRAM Patterson) Housing: House Alcohol intake: current Alcohol intake frequency: a few times a week Patient Tobacco Use Status: Never used Tobacco e-Cigarette/Vaping Use: Never Used Second Hand Smoke Exposure: No Advance Directives Date on File: 07/09/20 Current occupational status: employed Cognitive needs: No Hearing needs: No Vision needs: Yes Questionnaire Medicare Wellness Checkup What is your age?: 65-69 (63) What gender do you identify with?: male During the past 4 weeks, how much have you been bothered by emotional problems such as feeling anxious, depressed, irritable, sad or downhearted, and blue?: quite a bit During the past 4 weeks, has your physical & emotional health limited your social activities with family, friends, neighbors, or groups?: moderately During the past 4 weeks, how much bodily pain have you generally had?: no pain During the past 4 weeks, was someone available to help you if you needed & wanted help?: no, not at all During the past 4 weeks, what was the hardest physical activity you could do for at least 2 minutes?: moderate Can you get to places out of walking distance without help? (For eg., can you travel alone on buses, taxis or drive your car?): Yes Can you go shopping for groceries or clothes without someone's help?: Yes Can you prepare your own meals?: Yes Can you do your housework without help?: Yes Because of any health problems, do you need the help of another person with your personal care needs such as eating, bathing, dressing or getting around the house?: No Can you handle your own money without help?: Yes During the past 4 weeks, how would you rate your health in general?: fair During the past 4 weeks how have things been going for you?: good & bad parts about equal Are you having difficulties driving your car?: no Do you always fasten your seat belt when you are in a car?: yes, usually During past 4 weeks, have you been bothered by the following: never: Sexual problems?, Trouble eating well?, Teeth or denture problems? and Problems using the telephone?, often: Falling or dizzy when standing up and always: Tiredness or fatigue? Have you fallen 2 or more times in the past year?: No Are you afraid of falling?: No Are you a smoker?: no During the past 4 weeks, how many drinks of wine, beer, or other alcoholic beverages did you have?: 2-5 drinks per week Do you exercise for about 20 minutes 3 or more times a week?: no, I usually do not exercise this much Have you been given information to help with the following?: no: Hazards in your house that might hurt you? and no: Keeping track of your medications? How often do you have trouble taking medicines the way you have been told to take them?: I always take medicine as prescribed How confident are you that you can control & manage most of your health problems?: somewhat confident What is your race?: White Mini Mental State Exam (MMSE) Orientation What is the (year) (season) (date) (day) (month)?: year, season, date, day and month Registration Name of 3 unrelated objects clearly and slowly, then ask patient to repeat all 3 of them. (1st repeat determines score. Make sure they can repeat all three): object 1, object 2 and object 3 Attention & Calculation (CHOOSE ONE) Ask pt to begin with 100 & count backward by 7. Stop after 5 repeats. If pt cannot ask them to spell the word WORLD backward.: 93 Spell WORLD backwards (DLROW): 3 letters Recall Ask patient to repeat the 3 items from question #3.: object 1 Score Score: 13 Activity of Daily Living Bathing - sponge bath, tub bath or shower: receives no assistance (gets in/out by self, if usual bathing means Dressing - getting clothes from closets & drawers, including inner/outer garments & fasteners.: gets clothes & gets completely dressed without help Toileting - going to the 'toilet room' for urine/bowel elimination & cleaning self/arranging clothes: goes to toilet room, cleans self, arranges clothes without help Transfer: moves in & out of bed and chair without help (may use support object) Continence: controls urination/bowel movements completely by self Feeding: feeds self without help Total Score: 0 Information obtained from: patient Using telephone: independent Traveling: independent Shopping: independent Preparing meals: independent Housework: independent Taking medicine: independent Managing money: independent PHQ-9 Over the last 2 weeks, how often have you been bothered by any of the following problems? 1. Little interest or pleasure in doing things: nearly every day 2. Feeling down, depressed, or hopeless: nearly every day 3. Trouble falling or staying asleep, or sleeping too much: nearly every day 4. Feeling tired or having little energy: nearly every day 5. Poor appetite or overeating: not at all 6. Feeling bad about yourself - or that you are a failure or have let yourself or your family down: nearly every day 7. Trouble concentrating on things, such as reading the newspaper or watching television: nearly every day 8. Moving or speaking so slowly that other people could have noticed. Or the opposite - being so fidgety or restless that you have been moving around a lot more than usual: several days 9. Thoughts that you would be better off or of hurting yourself in some way: not at all Total score: 19 Depression Screening Interpretation: Positive Depression Screening Done: Yes 34153 - PHQ-9 Billing: Yes (known problem) Source: Developed by Drs. Trino Lindsey, Solange Alvarado, Ed Javier and colleagues, with an educational imer from [employer]. Thrive Questionnaire Date Thrive assessed: 03/31/24 I am a: Patient What is your living situation today?: I have a steady place to live Within the past 12 months, did the food you bought not last and you didn't have the money to get more?: Never true Within the past 12 months, did you worry whether your food would run out before you got money to buy more?: Never true Do you have trouble paying for medicines?: No Do you have trouble getting transportation to medical appointments?: No Do you have trouble paying your heating and electricity bill?: No Do you have trouble taking care of your child, family member or friend?: No Do you have trouble with day-to-day activities such as bathing, preparing meals, shopping, managing finances, etc.?: No Are you currently unemployed and looking for a job?: No Are you interested in more education?: No Currently or been in a relationship where the following occur: No concerns reported THRIVE Score: 0 PEG-7 AMB Questionnaire PEG-7 Date PGE - 7 assessed: 03/31/24 Feeling nervous, anxious, or on edge: 3 = Nearly every day Not being able to stop or control worryin = Nearly every day Worrying too much about different things: 3 = Nearly every day Trouble relaxin = Nearly every day Being so restless that it is hard to sit still: 0 = Not at all Becoming easily annoyed or irritable: 2 = More than half the days Feeling afraid as if something awful might happen: 0 = Not at all Total PEG-7 score (0-4 normal; 5-9 mild; 10-14 moderate; 15-21 severe): 14 Source: Developed by Drs. Trino Lindsey, Solange Alvarado, Ed Javier and colleagues, with an educational imer from [employer]. AUDIT C Alcohol Use Questionnaire (AUDIT-C) 1. How often do you have a drink containing alcohol?: 2-3 times a week 2. How many drinks containing alcohol do you have on a typical day when you are drinking?: 1 or 2 Total Score: 3 Review of Systems Const Denies chills, Denies fatigue, Denies headache(s) and Denies weight loss Eyes Denies change in vision, Denies diplopia and Denies eye pain ENT Reports Normal hearing present, Denies vertigo, Denies dizziness, Denies headache(s) and Denies nasal discharge Card Denies chest pain, Denies rapid heart rate and Denies dyspnea on exertion Resp Denies chest congestion, Denies cough, Denies pain with cough and Denies dyspnea on exertion GI Denies abdominal pain, Denies hematochezia and Denies change in bowel habits Musc Denies myalgias, Denies arthralgias and Denies joint swelling Skin/Breast Denies lesions and Denies unusual bruising Neuro Reports Normal hearing present, Denies vertigo, Denies dizziness, Denies headache(s) and Denies focal weakness Endo Denies fatigue Physical Exam Vital Signs: Last Vital Signs Pulse 81 03/31/24 11:07 BP 120/70 03/31/24 11:07 Pulse Ox 93 03/31/24 11:07 Oxygen Delivery Method Room Air 03/31/24 11:07 BMI result Body Mass Index 30.9 Neuro Cranial nerves: Yes Normal hearing present Assessment & Plan Assessment & Plan (1) Hyperlipidemia: Code(s): E78.5 - Hyperlipidemia, unspecified Plan: stable same rx (2) Hypertension: Code(s): I10 - Essential (primary) hypertension Plan: stable; same rx (3) Encounter for subsequent annual wellness visit (AWV) in Medicare patient: Code(s): Z00.00 - Encounter for general adult medical examination without abnormal findings Plan: rhomberg and whisper tests nl Orders: Orders Lipid Panel 03/31/24 Z13.220 - Encounter for screening for lipoid disorders Comprehensive Stanford. Panel Fast 03/31/24 Z13.9 - Encounter for screening, unspecified Complete Blood Count Auto Diff 03/31/24 Z13.0 - Encounter for screening for diseases of the blood and blood-forming organs and certain disorders involving the immune mechanism Thyroid Stimulating Hormone 03/31/24 Z13.29 - Encounter for screening for other suspected endocrine disorder Quality Reporting (2019) Depression/Bipolar (159/160/161/177) PHQ-9: Total score: 19 Coding Level of Care Code Medicare Subsequent (G0439) Diagnoses Hyperlipidemia E78.5 Hypertension I10 Encounter for subsequent annual wellness visit (AWV) in Medicare patient Z00.00 CPT Codes Advance Care Planning - Advance Care Planning discussion: On file, no changes ([id number]) Advance Care Planning Advance Care Planning discussion: On file, no changes Forms completed: Health Care Proxy
[2024-03-31 11:07] VITALS: BP 120/70; PULSE 81; O2SAT 93; BMI 30.9
== END 2024-03-31 11:34 | disposition home or self-care (01) ==
PROVIDERS: PCP Internal Medicine; Visit Provider Internal Medicine
DX: E78.5 Hyperlipidemia, unspecified (principal); I10 Essential (primary) hypertension; F41.8 Other specified anxiety disorders; Z00.00 Encounter for general adult medical examination without abnormal findings
CPT/HCPCS: 1123F; 99214

== ENCOUNTER 2024-04-01 09:33 | Outpatient (REF) | payer MEDICARE, SELFPAY ==
[2024-04-01 09:43] LABS: MANUAL DIFF FLAG NO
[2024-04-01 11:08] LABS: Basophils Absolute Auto 0.1 X10*3/uL (0.0-0.2); Basophils Percent Auto 0.6 % (0-2); Eosinophils Absolute Auto 0.2 X10*3/uL (0.0-0.4); Eosinophils Percent Auto 2.1 % (0-4); Hematocrit 45.8 % (42.0-52.0); Hemoglobin 15.5 g/dl (14.0-18.0); Imm Gran Abs Auto 0.03 X10*3/uL (0.00-0.03); Imm Gran Pct Auto 0.3 % (0.0-0.4); Lymphocytes Absolute Auto 2.4 X10*3/uL (1.2-4.9); Lymphocytes Percent Auto 26.9 % (20-40); Mean Corpuscular HGB Conc 33.8 g/dl (31.0-36.0); Mean Corpuscular Hemoglobin 31.3 pg (27.0-33.0); Mean Corpuscular Volume 92.3 fL (80.0-98.0); Mean Platelet Volume 10.2 fL (9.4-12.4); Monocytes Absolute Auto 0.8 X10*3/uL (0.1-1.2); Monocytes Percent Auto 8.9 % (2-11); Neutrophils Absolute Auto 5.4 x10*3/uL (2.0-8.3); Neutrophils Percent Auto 61.2 % (45-73); Platelet Count 218 X10*3/uL (160-400); Red Blood Count 4.96 X10*6/uL (4.60-5.80); Red Cell Distribution Width 12.2 % (11.0-16.0); White Blood Count 8.8 X10*3/uL (4.8-10.8)
[2024-04-01 11:54] LABS: Alanine Aminotransferase 35 U/L (0-40); Albumin Level 4.4 g/dL (3.5-5.0); Alkaline Phosphatase 87 U/L (39-117); Anion Gap 12 (12-20); Aspartate Amino Transferase 29 U/L (5-37); Bilirubin Total 0.5 mg/dL (0.0-1.0); Blood Urea Nitrogen 16 mg/dL (9-16); Calcium 9.8 mg/dL (8.4-10.2); Carbon Dioxide 26 mmol/L (22-29); Chloride 103 mmol/L (96-108); Cholesterol 149 mg/dL (<200); Estimated Glomerular Filt Rate > 60; Glucose Fasting 89 mg/dL (60-99); HDL Cholesterol 36 mg/dL (>40); LDL Cholesterol Calculated 84 mg/dL (<100); Potassium 4.2 mmol/L (3.3-5.1); Sodium 137 mmol/L (135-145); Total Protein 7.3 g/dL (6.5-8.0); Triglycerides 145 mg/dL (<150)
[2024-04-01 12:01] LABS: Thyroid Stimulating Hormone 3.16 uIU/mL (0.32-4.0)
== END 2024-04-01 09:34 | disposition home or self-care (01) ==
LOC: HO.LAB 09:33
PROVIDERS: PCP Internal Medicine; Visit Provider Internal Medicine
DX: Z13.29 Encounter for screening for other suspected endocrine disorder (principal); Z13.220 Encounter for screening for lipoid disorders; Z13.0 Encounter for screening for diseases of the blood and blood-forming organs and certain disorders involving the immune mechanism; Z20.2 Contact with and (suspected) exposure to infections with a predominantly sexual mode of transmission
CPT/HCPCS: 36415; 80053; 80061; 84443; 85025

== ENCOUNTER 2024-07-01 09:47 | Outpatient (AMB) | payer MEDICARE, SELFPAY ==
[2024-07-01 10:00] VITALS: BP 116/70; PULSE 77; O2SAT 94; BMI 29.6
--- NOTE | 2024-07-01 10:00 | MHC.PC.OV ---
Vital Signs 07/01/24 10:00 Height 5 ft 8 in Weight 195 lb BMI 29.6 BP 116/70 Blood Pressure Location Lt brachial Position Sitting Pulse 77 Pulse Source Pulse Oximeter Pulse Oximetry (%) 94 Oxygen Delivery Method Room Air Intake Visit Reasons: 3mth f/u Nurse Practitioner Physicians Assistant Required: No Accompanied by: Self / Same As Patient Allergies diphenhydramine [From Benadryl] Allergy (Unknown, Verified 07/01/24 10:01) aggitated,itch,rash Medication List - Last Reconciled 07/01/24 by Dimas Fish MD alprazolam 1 mg PO BID alprazolam 0.5 mg PO DAILY PRN amlodipine 10 mg PO DAILY atorvastatin 80 mg PO DAILY clotrimazole-betamethasone 1-0.05 % 1 appl topical BID 2 weeks duloxetine 60 mg PO DAILY lamotrigine 150 mg PO QAM losartan 100 mg (2 x 50 mg) PO DAILY 90 days metoprolol succinate ER 50 mg PO DAILY tamsulosin (Flomax) 0.4 mg PO BID Tobacco use date assessed: 07/01/24 Fall risk assessment: No Falls in past year Last assessed Fall Risk: 07/01/24 Dental Screening Dental Screen Date: 07/01/24 Did you have a dental visit in the last 12 months?: Yes Did you have a dental problem in the last 6 months where you did not have access to dental care?: No Was dental information given to patient?: Patient has dentist HPI 3mth f/u HPI Details occasional hypoxia at night; no diagnosis of pulmonary disease; may have primary hypoventillation PFSH Medical History CAD (coronary artery disease) Depression Dementia Hyperlipidemia Hypertension Colon polyps Chronic GERD GERD (gastroesophageal reflux disease) Anxiety Depression High cholesterol Surgical History History of esophagogastroduodenoscopy (EGD) History of left knee surgery Hx of appendectomy Hx of colonoscopy Family History (Updated 03/31/24 @ 11:12 by SRIRAM Patterson) Father Past heart attack Mother Hypertension Other Mental health disorder Social History (Updated 03/31/24 @ 11:12 by SRIRAM Patterson) Housing: House Alcohol intake: current Alcohol intake frequency: a few times a week Patient Tobacco Use Status: Never used Tobacco Tobacco use type: Cigarette e-Cigarette/Vaping Use: Never Used Second Hand Smoke Exposure: No Advance Directives Date on File: 07/09/20 Current occupational status: retired Cognitive needs: No Hearing needs: No Vision needs: Yes Questionnaire PHQ-9 Over the last 2 weeks, how often have you been bothered by any of the following problems? 1. Little interest or pleasure in doing things: nearly every day 2. Feeling down, depressed, or hopeless: nearly every day 3. Trouble falling or staying asleep, or sleeping too much: nearly every day 4. Feeling tired or having little energy: nearly every day 5. Poor appetite or overeating: not at all 6. Feeling bad about yourself - or that you are a failure or have let yourself or your family down: nearly every day 7. Trouble concentrating on things, such as reading the newspaper or watching television: nearly every day 8. Moving or speaking so slowly that other people could have noticed. Or the opposite - being so fidgety or restless that you have been moving around a lot more than usual: several days 9. Thoughts that you would be better off or of hurting yourself in some way: not at all Total score: 19 Depression Screening Interpretation: Positive Depression Screening Done: Yes 47087 - PHQ-9 Billing: Yes (known problem) Source: Developed by Drs. Trino Lindsey, Ed Powell and colleagues, with an educational imer from [employer]. Thrive Questionnaire Date Thrive assessed: 03/31/24 Are you currently unemployed and looking for a job?: I choose not to answer this question AUDIT C Alcohol Use Questionnaire (AUDIT-C) 1. How often do you have a drink containing alcohol?: 2-3 times a week 2. How many drinks containing alcohol do you have on a typical day when you are drinking?: 1 or 2 3. How often do you have six or more drinks on one occasion?: Never Total Score: 3 PEG-7 AMB Questionnaire PEG-7 Date EPG - 7 assessed: 03/31/24 Source: Developed by Drs. Trino Lindsey, Ed Powell and colleagues, with an educational imer from [employer]. Review of Systems Const Denies chills, Denies headache(s) and Denies weight loss ENT Denies headache(s) Card Denies chest pain, Denies syncope, Denies irregular heart rhythm and Denies dyspnea Resp Denies chest congestion, Denies cough and Denies dyspnea GI Denies abdominal pain, Denies change in stool character, Denies nausea and Denies vomiting Musc Denies deformity and Denies joint swelling Neuro Denies syncope and Denies headache(s) Physical exam (Primary Care) Vital Signs: Last Vital Signs Pulse 77 07/01/24 10:00 BP 116/70 07/01/24 10:00 Pulse Ox 94 07/01/24 10:00 Oxygen Delivery Method Room Air 07/01/24 10:00 BMI result Body Mass Index 29.6 Tobacco/Smoking Status: Tobacco use Status Tobacco use date assessed 07/01/24 07/01/24 10:04 Patient Tobacco Use Status Never used Tobacco 07/01/24 10:04 Tobacco use type Cigarette 07/01/24 10:04 e-Cigarette/Vaping Use Never Used 07/01/24 10:04 PHQ-9: PHQ-9 Score PHQ-9: Total score 19 07/01/24 10:04 Depression Screening Interpretation: Positive Thrive Assessment: Date of Thrive Assessment Date Thrive assessed 03/31/24 07/01/24 10:04 Const General: cooperative, comfortable, no acute distress and alert Neck Neck: Yes no lymphadenopathy Thyroid: Thyroid normal Resp Effort & Inspection: normal respiratory effort Auscultation: clear to auscultation bilaterally Percussion: percussion normal Cardio Jugular venous distension: no JVD Palpation: normal PMI Rate: regular rate Rhythm: regular rhythm Heart sounds: S1 normal heart sound present and S2 normal heart sound present GI Inspection: Yes normal to inspection Palpation (GI): No hepatosplenomegaly present Skin General skin exam: no rashes or lesions noted Extrem General: Yes no clubbing, cyanosis or edema Coding Level of Care Code Est Pt Level 3 (31502) Diagnoses Hypoxia R09.02 Assessment & Plan Assessment & Plan (1) Hypoxia: Code(s): R09.02 - Hypoxemia Category: Medical Plan: cxr and pfts Orders: Orders XR chest 2V Today R06.00 - Dyspnea, unspecified PFT pulmonary function test Today R09.02 - Hypoxemia
== END 2024-07-01 10:21 | disposition home or self-care (01) ==
PROVIDERS: PCP Internal Medicine; Visit Provider Internal Medicine
DX: R09.02 Hypoxemia (principal)

== ENCOUNTER → 2024-07-01 09:47 | Outpatient (BNVA) | payer MEDICARE, SELFPAY | PROVIDERS: PCP Internal Medicine; Visit Provider Internal Medicine | DX: R09.02 Hypoxemia (principal) | CPT/HCPCS: 96127; 99212 ==

== ENCOUNTER 2024-07-13 10:17 | Outpatient (REF) | payer MEDICARE, SELFPAY ==
--- NOTE | ~2024-07-13 | XR_ITS ---
EXAMINATION: XR CHEST 2 VIEWS CLINICAL INFORMATION: Dyspnea, unspecified R06.00. Patient states chest pain x 6 months. COMPARISON: XR Chest 03/24/2013 TECHNIQUE: 2 views of the chest were obtained. FINDINGS: No significant abnormality is noted involving the heart, lungs, mediastinum, bony thorax or soft tissues. XR/XR chest 2V IMPRESSION: Unremarkable examination. Electronically signed by: Eh Marie MD 09/02/2024 10:45 AM REDD MARTINEZ
== END 2024-07-13 10:18 | disposition home or self-care (01) ==
LOC: HO.XRAY 10:17
PROVIDERS: PCP Internal Medicine; Visit Provider Internal Medicine
DX: R06.00 Dyspnea, unspecified (principal)
CPT/HCPCS: 71046

== ENCOUNTER 2024-08-05 16:00 | Outpatient (REF) | payer MEDICARE, SELFPAY ==
[2024-08-05 14:29] VITALS: PULSE 82; O2SAT 92
--- NOTE | 2024-08-05 16:03 | PFT_ITS ---
Flows: FEV1: 111 % of predicted at 3.54 L FVC: 115 % of predicted at 4.75 L FEV1/FVC: 75 % Bronchodilator response: Absent Volumes: Total lung capacity: 96 % of predicted at 6.47 L Residual volume: 77 % of predicted at 1.72 L Slow vital capacity: 105 % of predicted at 4.75 L Expiratory reserve volume: 75 % of predicted at 0.87 L Diffusion capacity: Normal Impression: No obstructive or restrictive ventilatory defect. No bronchodilator response. Normal pulmonary function test. MTDD
== END 2024-08-05 16:01 | disposition home or self-care (01) ==
LOC: HO.RESP 16:00
PROVIDERS: PCP Internal Medicine; Visit Provider Internal Medicine
DX: R09.02 Hypoxemia (principal)
CPT/HCPCS: 94010; 94640; 94727; 94729

== ENCOUNTER → 2024-08-05 16:03 | Outpatient (BNV) | payer MEDICARE, SELFPAY | PROVIDERS: PCP Internal Medicine; Visit Provider Internal Medicine Pulmonary Disease | DX: R09.02 Hypoxemia (principal) | CPT/HCPCS: 94060; 94727; 94729 ==

== ENCOUNTER 2024-09-29 11:23 | Outpatient (AMB) | payer MEDICARE, SELFPAY ==
--- NOTE | 2024-09-29 11:30 | MHC.OFFVIS ---
Intake Visit Reasons: 6m follow up/PVR Intake Note: Patient is present for 6m Follow up/PVR Urology Medication:Tamsulosin Blood Thinner:Aspirin Software Engineering Project Manager Required: No Allergies diphenhydramine [From Benadryl] Allergy (Unknown, Verified 09/29/24 11:32) aggitated,itch,rash Medication List - Last Reconciled 09/29/24 by Puja Yan MD alprazolam 1 mg PO BID alprazolam 0.5 mg PO DAILY PRN amlodipine 10 mg PO DAILY atorvastatin 80 mg PO DAILY clotrimazole-betamethasone 1-0.05 % 1 appl topical BID 2 weeks duloxetine 60 mg PO DAILY lamotrigine 150 mg PO QAM losartan 100 mg (2 x 50 mg) PO DAILY 90 days metoprolol succinate ER 50 mg PO DAILY nitrofurantoin monohyd/m-cryst 100 mg (Macrobid) 100 mg PO BID tamsulosin (Flomax) 0.4 mg PO BID HPI Comments Details: 09/29/24--Erwin is a 63-year-old male who presents today to the office for a follow-up. He is followed for voiding dysfunction, neurogenic bladder, incomplete bladder emptying. He has been prescribed tamsulosin b.i.d., bethanechol, and Proscar. And he has been instructed on CIC management. He states that he has been doing well he catheterizes with the 16 Moroc[place] catheter 3 times a day. He denies dysuria or gross hematuria. U nitrite positi macro 01/21/2024- Erwin is a 63-year-old male who presents today to the office for a follow-up. He is followed for voiding dysfunction, neurogenic bladder, incomplete bladder emptying. He has been prescribed tamsulosin b.i.d., bethanechol, and Proscar. And he has been instructed on CIC management. He states that he has been doing well he catheterizes with the 16 Moroc[place] catheter 3 times a day. He denies dysuria or gross hematuria. He states that the bethanechol is expensive and he does not feel that it has been helping. I discussed previously plan to discontinue Proscar on follow-up. Bahman is tolerating the tamsulosin. Plan discussed continue CIC 3 times a day. Discontinue bethanechol and Proscar. We will continue tamsulosin b.i.d.. Follow-up in 6 months. Review of chart: 09/24/23-- Here for FU. He is followed for voiding dysfunction and MISAEL. He was instructed on CIC and bethanochol, flomax and proscar have been prescribed. He is here post renal US. I have reviewed the results with him - Kidneys WNL, No hydronephrosis, bladder volume measured 172 mL, he did not void at time of testing. He complains that urine is cloudy with intermittent dysuria. Plan discussed augmentin 7 dy, stop prosdcsr on f/u Continue Flomax BID. Continue bethanechol 50 mg TID. cont CIC Erwin is a 62-year-old male who is being evaluated for voiding dysfunction. He has incomplete bladder emptying. 08/05/2023?Bladder scan PVR was > 442 mL. 07/20/2023 for urodynamics procedure. urodynamics performed on 07/20/2023 was consistent with neurogenic bladder. Cystoscopy on 05/18/23 which noted an trilobar enlargement of prostate. Labs: PSA - 11/05/21---0.31 Imaging: Renal US - limited - Kidneys WNL, no stones or hydronephrosis 01/21/2024--continue CIC 3 times a day. Discontinue bethanechol and Proscar. We will continue tamsulosin b.i.d.. Follow-up in 6 months. [facility] Medical History CAD (coronary artery disease) Depression Dementia Hyperlipidemia Hypertension Colon polyps Chronic GERD GERD (gastroesophageal reflux disease) Anxiety Depression High cholesterol Surgical History History of esophagogastroduodenoscopy (EGD) History of left knee surgery Hx of appendectomy Hx of colonoscopy Family History Father Past heart attack Mother Hypertension Other Mental health disorder Social History Housing: House Alcohol intake: current Alcohol intake frequency: a few times a week Patient Tobacco Use Status: Never used Tobacco Tobacco use type: Cigarette e-Cigarette/Vaping Use: Never Used Second Hand Smoke Exposure: No Advance Directives Date on File: 07/09/20 Current occupational status: retired Cognitive needs: No Hearing needs: No Vision needs: Yes Review of Systems Const All systems reviewed & are unremarkable except as noted in HPI and below Reports no additional complaints Eyes Reports no additional complaints ENT Reports no additional complaints Card Reports no additional complaints Resp Reports no additional complaints GI Reports no additional complaints Reports as per HPI Musc Reports no additional complaints Skin/Breast Reports system reviewed and no additional complaints, except as documented Neuro Reports no additional complaints Psych Reports no additional complaints Endo Reports no additional complaints Heath/Lymph Reports no additional complaints Aller/Immun Reports no additional complaints Office Procedures Post Void Residual Post Residual Void Post Void Residual (PVR): 203 [id number] Void Residual by ultrasound Results AMB Urinalysis, Automated UA Leukoctes 70 Nichol/uL Last Edit by Sophia Anthony on 09/29/24 11:46 UA Nitrite Positive Last Edit by Sophia Anthony on 09/29/24 11:46 UA Urobilinogen 3.5 mg/dL Last Edit by Sophia Anthony on 09/29/24 11:46 UA Protein 0.1 mg/dL Last Edit by Sophia Anthony on 09/29/24 11:46 UA pH 7.0 Last Edit by Sophia Anthony on 09/29/24 11:46 UA Blood 0 Armaan/uL Last Edit by Sophia Anthony on 09/29/24 11:46 UA Specific [place] 1.015 Last Edit by Sophia Anthony on 09/29/24 11:46 UA Ketone Negative Last Edit by Sophia Anthony on 09/29/24 11:46 UA Bilirubin 0 mg/dL Last Edit by Sophia Anthony on 09/29/24 11:46 UA Glucose 0 mg/dL Last Edit by Sophia Anthony on 09/29/24 11:46 Results Reviewed Results Reviewed: Laboratory Last Values Urine pH (Auto) 7.0 09/29/24 11:44 Specific [place] (Auto) 1.015 09/29/24 11:44 Urine Protein (Auto) 0.1 mg/dL 09/29/24 11:44 Glucose (UA)(Auto) 0 mg/dL 09/29/24 11:44 Urine Ketones (Auto) Negative 09/29/24 11:44 Urine Blood (Auto) 0 Armaan/uL 09/29/24 11:44 Urine Nitrite (Auto) Positive 09/29/24 11:44 Urine Bilirubin (Auto) 0 mg/dL 09/29/24 11:44 Urine Urobilinogen (Auto) 3.5 mg/dL 09/29/24 11:44 Leukocyte Esterase (Auto) 70 Nichol/uL 09/29/24 11:44 Assessment & Plan Assessment & Plan (1) Hematuria: Code(s): R31.9 - Hematuria, unspecified Category: Medical Orders: Orders AMB Urinalysis Automated Today Z13.9 - Encounter for screening, unspecified AMB Post Void Residual by ultrasound Today R31.9 - Hematuria, unspecified, Z13.9 - Encounter for screening, unspecified Medications: New nitrofurantoin monohyd/m-cryst 100 mg (Macrobid) must administer with a meal/food 100 mg PO BID 20 caps 0RF Coding Diagnoses Hematuria R31.9 CPT Codes Post Residual Void - PVR CPT Code: 85905-Kdsv Void Residual by ultrasound ([id number])
--- OUTSIDE RECORDS SUMMARY | 2024-09-29 12:12 | XMS_ITS ---
Author Organization [facility] Address [address] [place] [phone] Care Team Providers Care Continuing Education Specialist Name Role Phone Polina BRIDGES, Dimas Primary Care Provider Trino Grimaldo [phone] REASON FOR VISIT renee's, hiatal hernia PROBLEMS Problem Type ICD Code Onset Dates Problem Status W/U Status Risk SNOMED Code Notes Problem Gastro-esophagea l reflux disease without esophagitis (K21.9) Active confirmed Gastro-esophage al reflux disease without esophagitis (938986038) Problem Chronic gastritis (K29.50) Active confirmed Chronic gastritis (1560767) Problem 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) Active confirmed Renee's esophagus (925082206) Encounters Encounter Location Date Provider Diagnosis [facility] [address] [place] [phone] 10/21/2023 Trino Holt Gastro-esophageal reflux disease without esophagitis K21.9 ; Hiatal hernia K44.9 ; Chronic gastritis K29.50 ; Other specified postprocedural states Z98.890 and Renee''s esophagus without dysplasia K22.70 ASSESSMENTS Encounter Date Diagnosis Assessment Notes Treatment Notes Treatment Clinical Notes 10/21/2023 Gastro-esophageal reflux disease without esophagitis (ICD-10 - K21.9) 10/21/2023 Hiatal hernia (ICD-1 0 - K44.9) 10/21/2023 Chronic gastritis (ICD-10 - K29.50) 10/21/2023 Other specified postprocedural states (ICD-10 - Z98.890) 10/21/2023 Renee''s esophagus without dysplasia (ICD-10 - K22.70) PLAN OF TREATMENT No Information
--- OUTSIDE RECORDS SUMMARY | 2024-09-29 12:13 | XMS_ITS | Patient Health Record ---
Author Organization [facility] Address [address] [place] [id number] Care Team Providers Care Rn Neonatal Icu Name Role Phone Dimas Fish MD Primary Care Provider Trino Grimaldo Unavailable [phone] ALLERGIES No Known Allergies RESULTS Component Value Reference Range Notes Pathology (Not yet reviewed by provider) Interpretation: Performing Lab:[facility], [address] [place] [phone] Notes/Report: REASON FOR REFERRAL No Information MEDICATIONS Medication SIG (Take, Route, Frequency, Duration) Notes Start Date End Date Status lamoTRIgine ER 25 MG 1 tablet Orally for 30 day(s) Active ALPRAZolam 1 MG (Schedule IV Drug) T LIA 1 TABLET BY MOUTH EVERY MORNING AND 1/2 TABLET IN THE EVENING Oral for 30 Active Cymbalta Active Lipitor Active Losartan Potassium 50 MG TAKE 2 TABLETS BY MOUTH EVERY DAY Oral for 90 Active Metoprolol Tartrate 25 MG TAKE 1 TABLET BY MOUTH EVERY DAY WITH FOOD Oral for 90 Active amLODIPine Besylate 10 MG TAKE 1 TABLET BY MOUTH EVERY DAY Oral for 90 Active IMMUNIZATIONS Vaccine Route Administration Date Status Comme nts Influenza Unknown 05/22/2019 Administered Influenza Unknown 05/22/2020 Administered Influenza Unknown 08/07/2021 Administered Influenza Unknown 07/29/2023 Administered SOCIAL HISTORY Tobacco Use: Social History Observation Description Date Details (start date - stop date) Never Smoker NA - NA Sex Assigned At : Social History Observation Description Sex Assigned At Unknown Tobacco Use/Smoking Question Answer Notes Patient is a nonsmoker Alcohol Screen Question Answer Notes Did you have a drink contain ing alcohol in the past year? Yes How often did you have a dri nk containing alcohol in the past year? 4 or more times a week (4 points) How many drinks did you have on a typical day when you were drinking in the past year? 1 or 2 drinks (0 point) How often did you have 6 or more drinks on one occasion in the past year? Never (0 point) Points 4 Interpretation Positive PROBLEMS Problem Type ICD Code Onset Dates Problem Status W/U Status Risk SNOMED Code Notes Problem Gastroesophageal reflux disease, esophagitis presence not specified (K21.9) Active confirmed [id number] Problem Encounter for screening for malignant neoplasm of colon (Z12.11) Active confirmed 449867128 Problem Gastro-esophageal reflux disease with esophagitis, without bleeding (K21.00) Active confirmed Gastroesophagit is (15435276) Problem Colon polyps (K63.5) Active confirmed Benign neoplasm of colon (39605085) Problem 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 Gama esophag us (377858786) Problem Hiatal hernia (K44.9) Active confirmed Hiatal hernia (13786105) Problem Gastro-esophageal reflux disease without esophagitis (K21.9) Active confirmed Gastro-esophage al reflux disease without esophagitis (444414390) Problem Chronic gastritis (K29.50) Active confirmed Chronic gastrit is (8541676) 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 Gama's esophagus (342554580) Encounters Encounter Location Date Provider Diagnosis [facility] [address] [place] [phone] 10/21/2023 Trino Holt Gastro-esophageal reflux disease without esophagitis K21.9 ; Hiatal hernia K44.9 ; Chronic gastritis K29.50 ; Other specified postprocedural states Z98.890 and Gama''s esophagus without dysplasia K22.70 [facility] [address] [place] [address] 10/03/2023 Trino Holt ASSESSMENTS Encounter Date Diagnosis Assessment Notes Treatment Notes Treatment Clinical Notes 10/21/2023 Gastro-esophageal reflux disease without esophagitis (ICD-10 - K21.9) 10/21/2023 Hiatal hernia (ICD-1 0 - K44.9) 10/21/2023 Chronic gastritis (ICD-10 - K29.50) 10/21/2023 Other specified postprocedural states (ICD-10 - Z98.890) 10/21/2023 Gama''s esophagus without dysplasia (ICD-10 - K22.70) PLAN OF TREATMENT Pending Test Test Name Order Date Esophageal Motility study 12/06/2020 24 HR pH PROBE 12/06/2020 Pathology 10/21/2023 Future Test Test Name Order Date UPPER GI ENDOSCOPY 04/24/2020 COLONOSCOPY 04/24/2020 UPPER GI ENDOSCOPY 08/17/2023 Insurance Providers Payer Name Payer Address Payer Phone Subscriber Number Group Number Insured Name Patient Relationship to Insured Coverage Start Date Coverage End Date MEDICARE OF [place] [address] [place] [address] [id number] HILDA MACDONALD Self - patient is the insured [employer] ATT[employer] CLAIMS [address] [place] [address] [id number] HILDA MACDONALD Self - patient is the insured MEDICAL (GENERAL) HISTORY Medical History History ICD Code Hypertension Denies [place],DM,CVA,Lung disease,renal dise ase Depression and anxiety Elevated Cholesterol Negative colonoscopy in 11/2009 Screening Colonoscopy 0--one small tubular adenoma; there was a somewhat limited prep and therefore he did a Cologuard test after that which was reportedly negative; he was noted to have a fibroepithelial polyp in the region of the anorectal junction GERD-upper endoscopy in 2019 revealed a moderate size hiatal hernia, some erosive esophagitis, a very small area of Gama's esophagus without dysplasia, and some mild gastritis without H. pylori--he did have hiatal hernia surgery in February [address] Simms with excellent clinical improvement prostate difficulty urinating. Surgical History Surgery Date(Month/Year) Appendectomy 1997 Knee surgery-left 2009 Fundoplication surgery for GERD with Dr. Simms 2020
--- OUTSIDE RECORDS SUMMARY | 2024-09-29 12:13 | XMS_ITS ---
Author Organization [facility] Address [address] [place] [phone] Care Team Providers Care Banking Specialist Name Role Phone Polina BRIDGES, Dimas Primary Care Provider Trino Grimaldo [phone] Encounters Encounter Location Date Provider Diagnosis [facility] [address] [place] [phone] 10/03/2023 Tirno Holt PLAN OF TREATMENT No Information
--- OUTSIDE RECORDS SUMMARY | 2024-09-29 12:13 | XMS_ITS ---
Author Organization [facility] Address [address] [place] [phone] Care Team Providers Care Pathology Laboratory Aides Teacher Name Role Phone Polina BRIDGES, Dimas Primary Care Provider Trino Grimaldo Unavailable [phone] Agusto Hale Jr Unavailable [phone] ALLERGIES No Known Allergies REASON FOR VISIT Patient presents today for GERD MEDICATIONS Medication SIG (Take, Route, Frequency, Duration) Notes Start Date End Date Status Cymbalta Active Metoprolol Tartrate 25 MG TAKE 1 TABLET BY MOUTH EVERY DAY WITH FOOD Oral for 90 Active amLODIPine Besylate 10 MG TAKE 1 TABLET BY MOUTH EVERY DAY Oral for 90 Active lamoTRIgine ER 25 MG 1 tablet Orally for 30 day(s) Active ALPRAZolam 1 MG (Schedule IV Drug) T LIA 1 TABLET BY MOUTH EVERY MORNING AND 1/2 TABLET IN THE EVENING Oral for 30 Active Lipitor Active Losartan Potassium 50 MG TAKE 2 TABLETS BY MOUTH EVERY DAY Oral for 90 Active SOCIAL HISTORY Tobacco Use: Social History Observation [...] Never (0 point) Points 4 Interpretation Positive VITAL SIGNS BMI 30.94 kg/m2 08/17/2023 Blood pressure systolic 000 mm Hg 08/17/20 23 Blood pressure diastolic 00 mm Hg 023 Height 68 in 08/17/2023 Temperature 98.0 degrees Fahrenheit 08/17/20 23 Weight 203 lb 8 oz lbs 08/17/2023 Encounters Encounter Location Date Provider Diagnosis [facility] [address] [place] [address] 08/17/2023 Agusto Hale Jr Hiatal hernia K44.9 and Gama esophagus K22.70 ASSESSMENTS Encounter Date Diagnosis Assessment Notes Treatment Notes Treatment Clinical Notes 08/17/2023 Hiatal hernia (ICD-10 - K44.9) Gama esophagus material was printed 08/17/2023 Gama esophagus (ICD-10 - K22.70) PLAN OF TREATMENT Treatment Notes Assessment Notes Hiatal hernia Gama esophagus cary brewster was printed Future Test Test Name Order Date UPPER GI ENDOSCOPY 08/17/2023 Next Appt Details Follow Up: 1 Year, Reason:
== END 2024-09-29 12:22 | disposition home or self-care (01) ==
PROVIDERS: PCP Internal Medicine; Visit Provider Urology
DX: Z13.9 Encounter for screening, unspecified (principal)

== ENCOUNTER 2024-09-29 11:23 | Outpatient (REF) | payer MEDICARE, SELFPAY | END 2024-09-29 11:24 | disposition home or self-care (01) | LOC: HO.LAB 11:23 | PROVIDERS: PCP Internal Medicine; Visit Provider Urology | DX: N39.0 Urinary tract infection, site not specified (principal); R31.9 Hematuria, unspecified; N40.1 Benign prostatic hyperplasia with lower urinary tract symptoms; N31.9 Neuromuscular dysfunction of bladder, unspecified; Z13.9 Encounter for screening, unspecified | CPT/HCPCS: 51798; 81003; 87086; 87088; 87186; 99212 ==

== ENCOUNTER 2024-10-12 13:44 | Outpatient (AMB) | payer MEDICARE, SELFPAY ==
[2024-10-12 14:00] VITALS: BP 102/62; PULSE 80; O2SAT 96; BMI 30.7
--- NOTE | 2024-10-12 14:00 | MHC.OFFVIS ---
Vital Signs 10/12/24 14:00 Height 5 ft 8 in Weight 202 lb BMI 30.7 BP 102/62 Blood Pressure Location Rt brachial Position Sitting Pulse 80 Pulse Source Doppler Pulse Oximetry (%) 96 Oxygen Delivery Method Room Air Intake Visit Reasons: hypoxia Allergies diphenhydramine [From Benadryl] Allergy (Unknown, Verified 09/29/24 11:32) aggitated,itch,rash HPI HPI hypoxia: Details: 64-year-old gentleman minimal smoker in his college years, with no prior personal family history of lung disease referred for evaluation intermittent episodes of hypoxia that patient noted with his personal oximeter. He does complain of some dyspnea on exertion when going up stairs, however no significant exertion on level ground. Otherwise patient pulmonary related concerns or complaints. He denies exposure to industrial dusts. [facility] Medical History CAD (coronary artery disease) Depression Dementia Hyperlipidemia Hypertension Colon polyps Chronic GERD GERD (gastroesophageal reflux disease) Anxiety Depression High cholesterol Surgical History History of esophagogastroduodenoscopy (EGD) History of left knee surgery Hx of appendectomy Hx of colonoscopy Family History Father Past heart attack Mother Hypertension Other Mental health disorder Social History Housing: House Alcohol intake: current Alcohol intake frequency: a few times a week Patient Tobacco Use Status: Never used Tobacco Tobacco use type: Cigarette e-Cigarette/Vaping Use: Never Used Second Hand Smoke Exposure: No Advance Directives Date on File: 07/09/20 Current occupational status: retired Cognitive needs: No Hearing needs: No Vision needs: Yes Review of Systems Const Denies daytime sleepiness, Denies excessive sweating, Denies fatigue, Denies fever(s), Denies lethargy, Denies malaise, Denies night sweats, Denies snoring and Denies weight loss Eyes Denies blurry vision and Denies itchy eyes ENT Denies nasal congestion, Denies post nasal drip, Denies sinus pain, Denies sinus pressure and Denies other ( Thrush) Card Denies chest pain, Denies pedal edema, Denies dyspnea, Reports dyspnea on exertion, Denies orthopnea and Denies paroxysmal nocturnal dyspnea Resp Denies cough, Denies hemoptysis, Denies excessive phlegm production, Denies dyspnea, Reports dyspnea on exertion, Denies snoring and Denies wheezing GI Denies abdominal pain and Denies heartburn Musc Denies myalgias, Denies arthralgias and Denies joint swelling Skin/Breast Denies rash Neuro Denies memory loss and Denies seizure-like activity Psych Denies abnormal sleep pattern, Denies anxiety and Denies memory loss Endo Denies excessive sweating, Denies fatigue and Denies heat intolerance Heath/Lymph Denies easy bruising Aller/Immun Denies itchy eyes, Denies seasonal rhinorrhea and Denies wheezing Physical Exam Vital Signs: Last Vital Signs Pulse 80 10/12/24 14:00 BP 102/62 10/12/24 14:00 Pulse Ox 96 10/12/24 14:00 Oxygen Delivery Method Room Air 10/12/24 14:00 BMI result Body Mass Index 30.7 Const General: no acute distress and alert Nutritional Appearance: not obese Orientation/consciousness: Other orientation findings ( oriented) HEENT Head: Yes atraumatic Eyes General: appearance normal, both eyes and all related structures Sclerae: sclerae normal EOM: EOMs intact bilaterally Neck Neck: Yes supple Lymphatic: no lymphadenopathy noted Resp Effort & Inspection: normal respiratory effort and no use of accessory muscles Auscultation: clear to auscultation bilaterally Cardio Rate: regular rate Rhythm: regular rhythm Heart sounds: no gallops, no murmurs and no rubs Skin General skin exam: other ( warm) Extrem General: No clubbing, No cyanosis and No edema Office Procedures 6 Minute Walk Time:: 14:30 SPO2 % at rest: 94 Pulse at rest: 80 SPO2 % during excercise: 91 Pulse during excercise: 98 SPO2 % after excercise: 95 Pulse after excercise: 86 Distance in yards walked: 300 [place] Score: 3 Performance Observations:: Erwin walked on level ground without assistance, he walked on room air for the entire walk. He maintained his SPO2 91-95% for the entire walk. No supplemental O2 needed. [address]95 - 6 Minute Walk Assessment & Plan Assessment & Plan (1) Dyspnea on exertion: Code(s): R06.09 - Other forms of dyspnea Category: Medical Plan: Results of function test and chest x-ray reviewed and essentially normal. Patient is interested having stress test performed, patient directed to discuss this option with his primary care provider. At this time no significant pulmonary course intermittent dyspnea on exertion noted. (2) Hypoxia: Code(s): R09.02 - Hypoxemia Category: Medical Plan: 6 minute walk test/oxygen evaluation performed. At this time patient does not require supplemental oxygen to maintain normal oximetry with exertion. Orders: Orders AMB 6 minute walk Today R09.02 - Hypoxemia Coding Level of Care Code New Pt Level 4 (28239) Diagnoses Dyspnea on exertion R06.09 Hypoxia R09.02 CPT Codes Coding ([id number])
[2024-10-12 14:51] VITALS: PULSE 80; O2SAT 94
--- OUTSIDE RECORDS SUMMARY | 2024-10-12 15:56 | XMS_ITS ---
Author Organization [facility] Address [address] [place] [phone] Care Team Providers Care Entertainer & Comic Name Role Phone Polina BRIDGES, Dimas Primary Care Provider Trino Grimaldo [phone] REASON FOR VISIT renee's, hiatal hernia PROBLEMS Problem Type ICD Code Onset Dates Problem Status W/U Status Risk SNOMED Code Notes Problem Gastro-esophagea l reflux disease without esophagitis (K21.9) Active confirmed Gastro-esophage al reflux disease without esophagitis (754504357) Problem Chronic gastritis (K29.50) Active confirmed Chronic gastritis (6801646) Problem 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) Active confirmed Renee's esophagus (010795708) Encounters Encounter Location Date Provider Diagnosis [facility] Outpatient [address] [place] [phone] 10/21/2023 Trino Holt Gastro-esophageal reflux disease without [...]
--- OUTSIDE RECORDS SUMMARY | 2024-10-12 15:56 | XMS_ITS ---
Author Organization [facility] Address [address] [place] [phone] Care Team Providers Care Tutorial Laboratory Supervisor Name Role Phone Polina BRIDGES, Dimas Primary Care Provider Trino Grimaldo [phone] Encounters Encounter Location Date Provider Diagnosis [facility] [address] [place] [phone] 10/03/2023 Trino Holt PLAN OF TREATMENT No Information
== END 2024-10-12 14:30 | disposition home or self-care (01) ==
PROVIDERS: PCP Internal Medicine; Visit Provider Internal Medicine Pulmonary Disease
DX: R06.09 Other forms of dyspnea (principal); R09.02 Hypoxemia
CPT/HCPCS: 94618; 99214

== ENCOUNTER → 2024-10-12 13:44 | Outpatient (BNVA) | payer MEDICARE, SELFPAY | PROVIDERS: PCP Internal Medicine; Visit Provider Internal Medicine Pulmonary Disease | DX: R06.09 Other forms of dyspnea (principal); R09.02 Hypoxemia | CPT/HCPCS: 94618; 99212 ==

== ENCOUNTER 2024-12-29 11:44 | Outpatient (AMB) | payer MEDICARE, SELFPAY ==
--- NOTE | 2024-12-29 11:47 | A.OFFVIS_ITS ---
Intake Visit Reasons: 3m followup Intake Note: Patient is present for 3m Follow up/PVR Urology Medication:Tamsulosin Blood Thinner:none PVR:43ml Technical Professional Required: No Allergies diphenhydramine [From Benadryl] Allergy (Unknown, Verified 12/29/24 12:04) aggitated,itch,rash HPI Comments Details: 12/29/24--Erwin is a 63-year-old male who presents today to the office for a follow-up. He is followed for voiding dysfunction, neurogenic bladder, incomplete bladder emptying. He has been prescribed tamsulosin b.i.d. . And he has been instructed on CIC management. He states that he has been doing well he catheterizes with the 16 American catheter 3 times a day. He denies dysuria or gross hematuria. LV 09/29/24-- was treated for UTI.- Ecoli-pansensitive. 09/29/24--Erwin is a 63-year-old male who presents today to the office for a follow-up. He is followed for voiding dysfunction, neurogenic bladder, incomplete bladder emptying. He has been prescribed tamsulosin b.i.d., bethanechol, and Proscar. And he has been instructed on CIC management. He states that he has been doing well he catheterizes with the 16 American catheter 3 times a day. He denies dysuria or gross hematuria. Urine nitrite positive. Will start abx. 01/21/2024- Erwin is a 63-year-old male who presents today to the office for a follow-up. He is followed for voiding dysfunction, neurogenic bladder, incomplete bladder emptying. He has been prescribed tamsulosin b.i.d., bethanechol, and Proscar. And he has been instructed on CIC management. He states that he has been doing well he catheterizes with the 16 American catheter 3 times a day. He denies dysuria or gross hematuria. He states that the bethanechol is expensive and he does not feel that it has been helping. I discussed previously plan to discontinue Proscar on follow-up. Bahman is tolerating the tamsulosin. Plan discussed continue CIC 3 times a day. Discontinue bethanechol and Proscar. We will continue tamsulosin b.i.d.. Follow-up in 6 months. 09/24/23-- Here for FU. He is followed for voiding dysfunction and MISAEL. He was instructed on CIC and bethanochol, flomax and proscar have been prescribed. He is here post renal US. I have reviewed the results with him - Kidneys WNL, No hydronephrosis, bladder volume measured 172 mL, he did not void at time of testing. He complains that urine is cloudy with intermittent dysuria. Plan discussed augmentin 7 dy, stop prosdcsr on f/u Continue Flomax BID. Continue bethanechol 50 mg TID. cont CIC Erwin is a 62-year-old male who is being evaluated for voiding dysfunction. He has incomplete bladder emptying. 08/05/2023?Bladder scan PVR was > 442 mL. 07/20/2023 for urodynamics procedure. urodynamics performed on 07/20/2023 was consistent with neurogenic bladder. Cystoscopy on 05/18/23 which noted an trilobar enlargement of prostate. Labs: PSA - 11/05/21---0.31 Imaging: Renal US - limited - Kidneys WNL, no stones or hydronephrosis PFSH Medical History CAD (coronary artery disease) Depression Dementia Hyperlipidemia Hypertension Colon polyps Chronic GERD GERD (gastroesophageal reflux disease) Anxiety Depression High cholesterol Surgical History History of esophagogastroduodenoscopy (EGD) History of left knee surgery Hx of appendectomy Hx of colonoscopy Family History Father Past heart attack Mother Hypertension Other Mental health disorder Social History Housing: House Alcohol intake: current Alcohol intake frequency: a few times a week Patient Tobacco Use Status: Never used Tobacco Tobacco use type: Cigarette e-Cigarette/Vaping Use: Never Used Second Hand Smoke Exposure: No Advance Directives Date on File: 07/09/20 Current occupational status: retired Cognitive needs: No Hearing needs: No Vision needs: Yes Results AMB Urinalysis, Automated UA Leukoctes 0 Nichol/uL Last Edit by Carlotta Mars on 12/29/24 16:05 UA Nitrite Negative Last Edit by Carlotta Mars on 12/29/24 16:05 UA Urobilinogen 0.2 mg/dL Last Edit by Carlotta Mars on 12/29/24 16:05 UA Protein 15 mg/dL Last Edit by Carlotta Mars on 12/29/24 16:05 UA pH 6.0 Last Edit by Carlotat Jerad on 12/29/24 16:05 UA Blood 0 Armaan/uL Last Edit by Carlotta Jerad on 12/29/24 16:05 UA Specific Sidney 1.020 Last Edit by Carlotta Mras on 12/29/24 16:05 UA Ketone Negative Last Edit by Carlotta Jerad on 12/29/24 16:05 UA Bilirubin 0 mg/dL Last Edit by Carlotta Venturatiz on 12/29/24 16:05 UA Glucose 0 mg/dL Last Edit by Carlotta Jerad on 12/29/24 16:05 Results Reviewed Results Reviewed: Collected: 09/29/24 Status: COMP Req#: [id number] Received: 09/29/24 Source: [facility] Desc: Clean Cat Subm Dr: Puja Yan MD Ordered: Urine Culture Procedure Result Verified Urine Culture Final 10/02/24 Organism 1 Escherichia coli Quant > 100,000 cfu/mL E coli M.I.C. RX --------- --- Ampicillin <=2 S Cefazolin <=1 S Cefepime <=0.12 S Ceftriaxone <=0.25 S Ciprofloxacin <=0.06 S Gentamicin <=1 S Nitrofurantoin <=16 S Trimethoprim/Sulfamethoxazole <=20 S Date of Service: 09/10/23 EXAMINATION: US RETROPERITONEAL COMPLETE (RENAL) CLINICAL INFORMATION: Neuromuscular dysfunction of bladder, unspecified. Please measure prostate. COMPARISON: Renal ultrasound 04/24/2023. TECHNIQUE: Real-time imaging of the kidneys and bladder. FINDINGS: RIGHT KIDNEY: 9.8 x 6.3 x 5.5 cm (SAG x AP x TRV). The kidney is normal in size, contour, and echogenicity. Renal cortical thickness is normal. No calculi or focal parenchymal lesions. No hydronephrosis. LEFT KIDNEY: 11.2 x 6.3 x 5.5 cm (SAG x AP x TRV). The kidney is normal in size, contour, and echogenicity. Renal cortical thickness is normal. No calculi or focal parenchymal lesions. No hydronephrosis. BLADDER: Well distended and normal. Bilateral ureteral jets are demonstrated. Prevoid bladder volume is 172 mL. Postvoid bladder volume was not obtained. The patient was unable to void. The prostate measures 26 mL in volume. IMPRESSION: 1. Normal appearance of the kidneys. 2. Normal appearance of the bladder. 3. The patient was unable to void. 4. No significant enlargement of the prostate. Assessment & Plan Assessment & Plan (1) Neurogenic bladder: Code(s): N31.9 - Neuromuscular dysfunction of bladder, unspecified Category: Medical (2) UTI (urinary tract infection): Code(s): N39.0 - Urinary tract infection, site not specified Category: Medical Orders: Orders US renal BI 3 Months N31.9 - Neuromuscular dysfunction of bladder, unspecified, N39.0 - Urinary tract infection, site not specified AMB Urinalysis Automated Today Z13.9 - Encounter for screening, unspecified Coding Diagnoses Neurogenic bladder N31.9 UTI (urinary tract infection) N39.0
--- OUTSIDE RECORDS SUMMARY | 2024-12-29 14:20 | XMS_ITS ---
Author Organization [facility] Address [address] [place] [phone] Care Team Providers Care Bronc Breaker Name Role Phone Polina BRIDGES, Dimas Primary Care Provider Trino Grimaldo [phone] REASON FOR VISIT renee's, hiatal hernia Problems Problem Type SNOMED Code ICD Code Onset Dates Problem Status W/U Status Risk Notes Problem Gastro-esophagea l reflux disease without esophagitis (947240624) Gastro-esophage al reflux disease without esophagitis (K21.9) Active confirmed Problem Chronic gastritis (7050736) Chronic gastritis (K29.50) Active confirmed Problem Renee's esophagus (825804483) 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) Active confirmed Encounters Encounter Location Date Provider Diagnosis [facility] [place] [address] [place] [phone] 10/21/2023 Trino Holt Gastro-esophageal reflux disease without [...] dysplasia (ICD-10 - K22.70) Plan Of Treatment No Information Progress Notes * HILDA MACDONALDDOB:1960 (64 yo M)Acc No.[id number]:10/21/2023 EGD/MAC Patient:HILDA ABEL Provider:?Trino Holt MD :1960???Age:63 Y???Sex:Male Randall e:10/21/2023 Address:[address] [place] [address] Pcp:Dimas Fish MD Subjective: * Chief Complaints: * ???1. Renee's, hiatal sonia ia. * Medical History:? Objective: * Vitals:? Assessment: * Assessment: 1.?Gastro-esophageal reflux disease without esophagitis - K21.9 (Primary)???2.?Hiatal hernia - K44.9???3.?Chronic gastritis - K29.50???4.?Other specified postprocedural states - Z98.890???5.?Renee''s esophagus without dysplasia - K22.70??? Plan: * Treatment: * Procedure Codes:?18159 UPPER GI ENDOSCOPY, BIOPSY, 3216F PT IMMUNITY TO HEP B DOCD * * The named appointment provid er may or may not be the originator of this progress note, and it is not deemed complete until electronically signed by the appointment provider. Sign off status: Pending * Provider:?Trino Holt MD Date:? 024 Generated for Carol bowers/Darrian/eTransmitting on:?12/29/2024 02:20 PM EDT
--- OUTSIDE RECORDS SUMMARY | 2024-12-29 14:20 | XMS_ITS ---
Author Organization [facility] Address [address] [place] [phone] Care Team Providers Care Heating And Refrigeration Inspector Name Role Phone Polina BRIDGES, Dimas Primary Care Provider Trino Grimaldo Unavailable [phone] Agusto Hale Jr Unavailable Allergies No Known Allergies REASON FOR VISIT Patient presents today for GERD Medications Medication SIG (Take, Route, Frequency, Duration) Notes [...] MOUTH EVERY DAY Oral for 90 Active Social History Tobacco Use: Social History Observation Description Date Details (start date - stop date) Never Smoker NA - NA Tobacco Use/Smoking Question Answer Notes Patient is [...] Never (0 point) Points 4 Interpretation Positive Section Notes: Nonsmoker; 1-2 glasses of re d wine a few times a week Vital Signs Temperature 98.0 degrees Fahrenheit 08/17/20 23 Blood pressure systolic 000 mm Hg 08/17/20 23 Blood pressure diastolic 00 mm Hg 023 Height 68 in 08/17/2023 Weight 203 lb 8 oz lbs 08/17/2023 BMI 30.94 kg/m2 08/17/2023 Encounters Encounter Location Date Provider Diagnosis [facility] [address] [place] [address] 08/17/2023 Agusto Hale Jr Hiatal hernia K44.9 and Gama esophagus K22.70 Assessments Encounter Date Diagnosis (ICD Code) Assessment Notes Treatment Notes Treatment Clinical Notes Section Notes 08/17/2023 Hiatal hernia (ICD-10 - K44.9) Gama esophagus material was printed We discussed gastroesophageal reflux disease today. We discussed diet, lifestyle modifications, and weight management regarding reflux. We will see him in followup for upper endoscopy. He understands risks and benefits and agrees to proceed. 08/17/2023 Gama esophagus (ICD-10 - K22.70) We discussed gastroesophageal reflux disease today. We discussed diet, lifestyle modifications, and weight management regarding reflux. We will see him in followup for upper endoscopy. He understands risks and benefits and agrees to proceed. Plan Of Treatment Treatment Notes Assessment Notes Hiatal hernia Gama esophagus cary brewster was printed Future Test Test Name Order Date UPPER GI ENDOSCOPY 08/17/2023 Next Appt Details Follow Up: 1 Year, Reason: Progress Notes * HILDA CALDWELLDOB:1960 (63 yo M)Acc No.[id number]:08/17/2023 Progress Notes Patient:?HILDA CALDWELL Provider:?Agusto Hale MD :1960???Age:63 Y???Sex:Male Randall e:08/17/2023 Address:[address] [place], [place] [id number] Pcp:Dimas Fish MD Subjective: * Chief Complaints: * ???1. Patient presents today for GERD. * HPI: ???New symptom(s):? Hilda is seen today because of gastroesophageal reflux disease in the setting of Gama's esophagus. He reports swallowing a good diet in using lifestyle modifications to avoid reflux symptoms. He continues on omeprazole which he takes periodically for 2 weeks at a time and then stopped. He believes his surgery helped his reflux symptoms significantly. ?Followup upper endoscopy is due because of a history of Gama's esophagus. * Medical History:?Hypertensio n, Denies NE,DM,CVA,Lung disease,renal disease, Depression and anxiety, Elevated Cholesterol, Negative colonoscopy in 11/2009, Screening Colonoscopy 06/2020--one small tubular adenoma; there was a somewhat limited prep and therefore he did a Cologuard test after that which was reportedly negative; he was noted to have a fibroepithelial polyp in the region of the anorectal junction, GERD-upper endoscopy in June of 2020 revealed a moderate size hiatal hernia, some erosive esophagitis, a very small area of Gama's esophagus without dysplasia, and some mild gastritis without H. pylori--he did have hiatal hernia surgery in February of [address] Simms with excellent clinical improvement, Prostate difficulty urinating.. * Surgical History:?Appendecto my 1997, Knee surgery-left 2009, Fundoplication surgery for GERD with Dr. Simms 2020. * Family History:?Father: dece ased, heart attack/ colitis/ diverticulitis, diagnosed with Heart disease, HTN (hypertension).?Mother: .? no known hx of colon cancer, no liver cancer in family. * Social History:?Tobacco Use:?Tobacco Use/Smoking?Patient is a?nonsmoker.?Drugs/Alcohol:?Alcohol Screen?Did you have a drink containing alcohol in the past year??Yes,?How often did you have a drink containing alcohol in the past year??4 or more times a week (4 points),?How many drinks did you have on a typical day when you were drinking in the past year??1 or 2 drinks (0 point),?How often did you have 6 or more drinks on one occasion in the past year??Never (0 point),?Points?4,?Interpretation?Positive.?Miscellaneous:?Caffeine: 1-2 cups per day. Marital status: . Occupation: Retired. ???Nonsmoker; 1-2 glasses of red wine a few times a week. * Medications:?Taking lamoTRIg ine ER 25 MG Tablet Extended Release 24 Hour 1 tablet Orally , Taking ALPRAZolam 1 MG Tablet (Schedule IV Drug) TAKE 1 TABLET BY MOUTH EVERY MORNING AND 1/2 TABLET IN THE EVENING Oral , Taking Losartan Potassium 50 MG Tablet TAKE 2 TABLETS BY MOUTH EVERY DAY Oral , Taking Lipitor , Taking Cymbalta , Taking amLODIPine Besylate 10 MG Tablet TAKE 1 TABLET BY MOUTH EVERY DAY Oral , Taking Metoprolol Tartrate 25 MG Tablet TAKE 1 TABLET BY MOUTH EVERY DAY WITH FOOD Oral , Discontinued Trileptal , Discontinued Multivitamin Adults - Tablet as directed Orally , Discontinued Omeprazole Magnesium 20 MG Tablet Delayed Release 1 Orally BID, Discontinued Omeprazole 20 MG Capsule Delayed Release 1 Orally BID, Discontinued Omeprazole 40 MG Capsule Delayed Release 1 Orally BID, Medication List reviewed and reconciled with the patient * Allergies:?N.K.D.A. Objective: * Vitals:?Wt: 203 lb 8 oz, Ht: 68 in, BMI:30.94 Index, BP: 000/00 mm Hg, Temp: 98.0. * Examination: ???General Examination: ???On examination today, he appears well. Skin is anicteric. Lungs are clear. Heart shows regular rate. Abdomen is soft without focal masses or tenderness. Extremities are without edema. Assessment: * Assessment: 1.?Hiatal hernia - K44.9 (Pr imary)?2.?Gama esophagus - K22.70? We discussed gastroesophagea l reflux disease today. We discussed diet, lifestyle modifications, and weight management regarding reflux. We will see him in followup for upper endoscopy. He understands risks and benefits and agrees to proceed. Plan: * Treatment: Notes: Gama esophagus material was printed.??2.?Gama esophagus?Procedure: UPPER GI ENDOSCOPY (Ordered for 08/17/2023)* sched for 10/14/23 at 11:50 [facility] * Procedure Codes:?3017F COLOR ECTAL CA SCREEN DOC REV, G9745 DOC RSN FOR NOT SCREEN/REC F/U HBP * Preventive Medicine:? ??Counseling:?Care goal follow-up plan:?Above Normal BMI Follow-up?Giving encouragement to exercise,?BMI management provided?Yes.? * Follow Up:?1 Year * * Sign off status: Completed true * Provider:?Agusto Hale MD Date:?10/17/2022 Generated for Carol bowers/Darrian/Breonnaitting on:?12/29/2024 02:20 PM EDT History and Physical Notes * HPI (History of Present Illness) Category Sub-Category Detail Notes Category Not es New symptom(s) Hilda is seen today because of gastroesophageal reflux disease in the setting of Gmaa's esophagus. He reports swallowing a good diet in using lifestyle modifications to avoid reflux symptoms. He continues on omeprazole which he takes periodically for 2 weeks at a time and then stopped. He believes his surgery helped his reflux symptoms significantly. Followup upper endoscopy is due because of a history of Gama's esophagus Examination Category Sub-Category Detail Notes Category Not es General Examination On exami nation today, he appears well. Skin is anicteric. Lungs are clear. Heart shows regular rate. Abdomen is soft without focal masses or tenderness. Extremities are without edema.
--- OUTSIDE RECORDS SUMMARY | 2024-12-29 14:20 | XMS_ITS ---
Author Organization [facility] Address [address] [place] [phone] Care Team Providers Care Agriculture Science Teacher Name Role Phone Polina BRIDGES, Dimas Primary Care Provider Trino Grimaldo [phone] Encounters Encounter Location Date Provider Diagnosis [facility] [address] [facility] [address] [place] [phone] 10/03/2023 Trino Holt Plan Of Treatment No Information Progress Notes * HILDA CALDWELLDOB:1960 (63 yo M)Acc No.[id number]:10/03/2023 Patient:?TORRES HILDA :1960???Age:63 Y???Sex:Male Address:[address] [place] [phone] * true * Date:? Generated for Carol bowers/Darrian/eTransmitting on:?12/29/2024 02:19 PM EDT
--- OUTSIDE RECORDS SUMMARY | 2024-12-29 14:20 | XMS_ITS | Patient Health Record ---
Author Organization [facility] Address [address] [place] [phone] Care Team Providers Care Awning Finisher Name Role Phone Dimas Fish MD Primary Care Provider Trino Grimaldo Unavailable [phone] Allergies No Known Allergies Reason For Referral No Information Medications Medication SIG (Take, Route, Frequency, Duration) [...] MOUTH EVERY DAY Oral for 90 Active Immunizations Vaccine Route Administration Date Status Comme nts Influenza Unknown 05/22/2019 Administered Influenza Unknown 05/22/2020 Administered Influenza Unknown 08/07/2021 Administered Influenza Unknown 07/29/2023 Administered Social History Tobacco Use: Social History Observation [...] d wine a few times a week Nonsmoker; 1-2 glasses of re d wine a few times a week Nonsmoker; 1-2 glasses of re d wine a few times a week Nonsmoker; 1-2 glasses of re d wine a few times a week Nonsmoker; 1-2 glasses of re d wine a few times a week Problems Problem Type SNOMED Code ICD Code Onset Dates Problem Status W/U Status Risk Notes Problem Gastro-esophageal reflux disease without esophagitis (227312078) Gastro-esophageal reflux disease without esophagitis (K21.9) Active confirmed Problem 663068639 Encounter for screening for malignant neoplasm of colon (Z12.11) Active confirmed Problem Benign neoplasm of colon (18132394) Colon polyps (K63.5) Active confirmed Problem 918027449 Gastroesophageal reflux disease, esophagitis presence not specified (K21.9) Active confirmed Problem Hiatal hernia (26170854) Hiatal hernia (K44.9) Active confirmed Problem Gama esophagus (113552761) 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 Problem Chronic gastritis (7569481) Chronic gastritis (K29.50) Active confirmed Problem Gama's esophagus (256133008) 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) Active confirmed Problem Gastroesophagitis (39676871) Gastro-esophageal reflux disease with esophagitis, without bleeding (K21.00) Active confirmed Plan Of Treatment Pending Test Test Name Order Date Esophageal Motility study 12/06/2020 24 HR pH PROBE 12/06/2020 Pathology 10/21/2023 Future Test Test Name Order Date UPPER GI ENDOSCOPY 04/24/2020 COLONOSCOPY 04/24/2020 UPPER GI ENDOSCOPY 08/17/2023 Insurance Providers Payer Name Payer Address Payer Phone Subscriber Number Group Number Insured Name Patient Relationship to Insured Coverage Start Date Coverage End Date MEDICARE OF [place] [address] [place] [address] [id number] HILDA MACDONALD Self - patient is the insured MED[employer] ATTN CLAIMS [address] [place] [address] [phone] [id number] HILDA MACDONALD Self - patient is the insured Medical (General) History Medical History History ICD Code Hypertension Denies CA,DM,CVA,Lung disease,renal dise ase Depression and anxiety Elevated [...] History Surgery Date(Month/Year) Appendectomy 1997 Knee surgery-left 2010 Fundoplication surgery for GERD with Dr. Simms 2020
== END 2024-12-29 12:22 | disposition home or self-care (01) ==
LOC: HO.HUSH 11:45
PROVIDERS: PCP Internal Medicine; Visit Provider Urology
DX: Z13.9 Encounter for screening, unspecified (principal)

== ENCOUNTER → 2024-12-29 11:44 | Outpatient (BNVA) | payer MEDICARE, SELFPAY | PROVIDERS: PCP Internal Medicine; Visit Provider Urology | DX: N31.9 Neuromuscular dysfunction of bladder, unspecified (principal); N39.0 Urinary tract infection, site not specified | CPT/HCPCS: 81003; 99212 ==

== ENCOUNTER 2025-01-11 10:27 | Outpatient (AMB) | payer MEDICARE, SELFPAY ==
--- NOTE | 2025-01-11 10:31 | MHC.PC.OV ---
Vital Signs 01/11/25 10:33 Height 5 ft 8 in Weight 207 lb 6 oz BMI 31.5 BP 130/68 Blood Pressure Location Lt brachial Position Sitting Pulse 71 Pulse Source Pulse Oximeter Temp 97.3 F Temp Source Temporal Artery Scan Pulse Oximetry (%) 95 Oxygen Delivery Method Room Air Intake Visit Reasons: SYDNEE Dominic Fish/ Follow up Intake Note: Patient is here today for SYDNEE from Dr Fish. Supervisor Metal Cans Required: No Scan Coordinator: Not Required per policy Accompanied by: Self / Same As Patient Allergies diphenhydramine [From Benadryl] Allergy (Unknown, Verified 01/11/25 10:34) aggitated,itch,rash Medication List - Last Reconciled 01/11/25 by Linda Marquez PA-C alprazolam 1 mg PO BID alprazolam 0.5 mg PO DAILY PRN amlodipine 10 mg PO DAILY atorvastatin 80 mg PO DAILY duloxetine 60 mg PO DAILY lamotrigine 150 mg PO QAM losartan 100 mg (2 x 50 mg) PO DAILY 90 days metoprolol succinate ER 50 mg PO DAILY tamsulosin (Flomax) 0.4 mg PO BID Tobacco use date assessed: 01/11/25 Fall risk assessment: No Falls in past year Last assessed Fall Risk: 01/11/25 Dental Screening Dental Screen Date: 01/11/25 Did you have a dental visit in the last 12 months?: Yes Did you have a dental problem in the last 6 months where you did not have access to dental care?: No Was dental information given to patient?: Patient has dentist HPI SYDNEE Dominic Fish/ Follow up HPI Details 64-year-old male with past medical history of GERD, hypertension, hyperlipidemia, dementia, depression, coronary artery disease, BPH, neurogenic bladder last seen 06/[address] Fish coming in for transfer of care. In review of the notes, patient was seen by Urology 12/2024 repeat renal ultrasound in 3 months with a appointment to follow up. Patient was seen by pulmonology 09/2024 ordered for stress test for dyspnea on exertion. Patient recently had endoscopy 10/[address] Holt recommending repeat endoscopy in 3 years and due for follow up screening colonoscopy in 2024. Presenting for a wellness visit and management of chronic conditions. Depressive Disorder managed with psychiatric follow-ups every two months. Positive depression screening, though patient notes feeling generally stable. Hypertenion and Nonobstructive Coronary Artery Disease management includes metoprolol, losartan, amlodipine, and monitoring of cholesterol levels. Gastroesophageal Reflux Disease has been resolved post-fundoplication; patient is off PPIs. Long-standing sleep disturbances associated with airway issues; use of dental device was noted for relief. Chronic lower back pain linked to arthritis; periodic episodes of increased pain. Ankle sprain with ongoing discomfort; physical therapy recommended for recovery. [facility] Medical History CAD (coronary artery disease) Depression Dementia Hyperlipidemia Hypertension Colon polyps Chronic GERD GERD (gastroesophageal reflux disease) Anxiety Depression High cholesterol Surgical History History of esophagogastroduodenoscopy (EGD) History of left knee surgery Hx of appendectomy Hx of colonoscopy Family History Father Past heart attack Mother Hypertension Other Mental health disorder Social History (Updated 01/11/25 @ 10:37 by SRIRAM Patterson) Housing: House Alcohol intake: current Alcohol intake frequency: 0-2 drinks per day Patient Tobacco Use Status: Never used Tobacco Tobacco use type: Cigarette e-Cigarette/Vaping Use: Never Used Second Hand Smoke Exposure: No Advance Directives Date on File: 07/09/20 service: No Current occupational status: retired Cognitive needs: No Hearing needs: No Vision needs: Yes (Glasses) Questionnaire PHQ-9 Over the last 2 weeks, how often have you been bothered by any of the following problems? 1. Little interest or pleasure in doing things: more than half the days 2. Feeling down, depressed, or hopeless: more than half the days 3. Trouble falling or staying asleep, or sleeping too much: nearly every day 4. Feeling tired or having little energy: nearly every day 5. Poor appetite or overeating: not at all 6. Feeling bad about yourself - or that you are a failure or have let yourself or your family down: not at all 7. Trouble concentrating on things, such as reading the newspaper or watching television: more than half the days 8. Moving or speaking so slowly that other people could have noticed. Or the opposite - being so fidgety or restless that you have been moving around a lot more than usual: not at all 9. Thoughts that you would be better off or of hurting yourself in some way: several days Total score: 13 Depression Screening Interpretation: Positive Depression Screening Follow-up: Existing condition and In treatment Depression Screening Done: Yes Source: Developed by Drs. Trino Lindsey, Solange Alvarado, Ed Javier and colleagues, with an educational imer from [employer]. Thrive Questionnaire Date Thrive assessed: 01/11/25 I am a: Patient What is your living situation today?: I have a steady place to live Within the past 12 months, did the food you bought not last and you didn't have the money to get more?: Never true Within the past 12 months, did you worry whether your food would run out before you got money to buy more?: Never true Do you have trouble paying for medicines?: No Do you have trouble getting transportation to medical appointments?: No Do you have trouble paying your heating and electricity bill?: No Do you have trouble taking care of your child, family member or friend?: No Do you have trouble with day-to-day activities such as bathing, preparing meals, shopping, managing finances, etc.?: No Are you currently unemployed and looking for a job?: No Are you interested in more education?: No Please select the resources that you would like help with: None Currently or been in a relationship where the following occur: No concerns reported THRIVE Score: 0 AUDIT C Alcohol Use Questionnaire (AUDIT-C) 1. How often do you have a drink containing alcohol?: 2-3 times a week 2. How many drinks containing alcohol do you have on a typical day when you are drinking?: 1 or 2 Total Score: 3 PEG-7 AMB Questionnaire PEG-7 Date PEG - 7 assessed: 01/11/25 Feeling nervous, anxious, or on edge: 3 = Nearly every day Not being able to stop or control worryin = More than half the days Worrying too much about different things: 2 = More than half the days Trouble relaxin = Nearly every day Being so restless that it is hard to sit still: 0 = Not at all Becoming easily annoyed or irritable: 1 = Several days Feeling afraid as if something awful might happen: 0 = Not at all Total PEG-7 score (0-4 normal; 5-9 mild; 10-14 moderate; 15-21 severe): 11 Source: Developed by Drs. Trino Lindsey, Solange Alvarado, Ed Javier and colleagues, with an educational imer from [employer]. PEG-7 Assessment Billing PEG-7 Assessment Tool: PEG-7 Assessment 90493 Review of Systems Const Denies body aches, Denies chills, Denies fever(s) and Denies poor appetite Eyes Reports no additional complaints ENT Denies dizziness Card Denies chest pain, Denies lightheadedness and Denies dyspnea Resp Denies dyspnea GI Denies nausea and Denies vomiting Reports no additional complaints Musc Details: Right ankle pain and lumbar spine pain Reports abnormal gait and Reports back pain Skin/Breast Reports system reviewed and no additional complaints, except as documented Neuro Reports abnormal gait and Denies dizziness Psych Reports no additional complaints Physical exam (Primary Care) Vital Signs: Last Vital Signs Temp 97.3 F 01/11/25 10:33 Pulse 71 01/11/25 10:33 BP 130/68 01/11/25 10:33 Pulse Ox 95 01/11/25 10:33 Oxygen Delivery Method Room Air 01/11/25 10:33 BMI result Body Mass Index 31.5 Tobacco/Smoking Status: Tobacco use Status Tobacco use date assessed 01/11/25 01/11/25 10:34 Patient Tobacco Use Status Never used Tobacco 01/11/25 10:37 Tobacco use type Cigarette 01/11/25 10:37 e-Cigarette/Vaping Use Never Used 01/11/25 10:37 PHQ-9: PHQ-9 Score PHQ-9: Total score 13 01/11/25 10:52 Depression Screening Interpretation: Positive Depression Screening Follow-up: Existing condition and In treatment Thrive Assessment: Date of Thrive Assessment Date Thrive assessed 01/11/25 01/11/25 10:34 Currently or been in a relationship where the following occur: No concerns reported Const General: cooperative, healthy appearing, comfortable and no acute distress Orientation/consciousness: patient oriented x3 HENMT Head: Yes normocephalic Ears: hearing grossly normal bilaterally General nose exam: Normal external nose present Eyes General: appearance normal, both eyes and all related structures Conjunctivae: conjunctivae normal Neck Neck: Yes full ROM and Yes no lymphadenopathy Resp Effort & Inspection: normal respiratory effort Auscultation: clear to auscultation bilaterally, no crackles, no rales, no rhonchi and no wheezes Cardio Rate: regular rate Rhythm: regular rhythm Skin General skin exam: no rashes or lesions noted Neuro General: patient oriented x3 Gait exam (Neuro): Normal gait present Extrem General: Yes normal to inspection, Yes full ROM and No edema Psych Affect: normal affect Attitude: cooperative Insight: Good insight present (Psych) Judgement: Good judgement present (Psych) Coding Level of Care Code Est Pt Level 4 (62332) Diagnoses Dyspnea on exertion R06.09 Neurogenic bladder N31.9 Depression F32.A Hyperlipidemia E78.5 Hypertension I10 Chronic GERD K21.9 CAD (coronary artery disease) I25.10 Right ankle pain M25.571 Back pain M54.9 Obesity E66.9 Additional Codes PEG-7 Assessment Billing - PEG-7 Assessment Tool: PEG-7 Assessment 03139 ([id number]) Assessment & Plan Assessment & Plan (1) Dyspnea on exertion: Code(s): R06.09 - Other forms of dyspnea Category: Medical Plan: Patient is currently follow with pulmonology for management of dyspnea on exertion. Per last pulmonology note they were considering cardiac stress test however patient states he was scheduled for follow up to further discuss at that time. Continue to follow with pulmonology (2) Neurogenic bladder: Code(s): N31.9 - Neuromuscular dysfunction of bladder, unspecified Category: Medical Plan: Patient is currently following with Urology for neurogenic bladder and does self catheterize. Since implementing the catheterization he is no longer had urinary tract infections. He is scheduled for repeat renal ultrasound in 3 months with a appointment to follow with Urology (3) Depression: Comment: Following with Funmilayo Peña every 2 monts Code(s): F32.A - Depression, unspecified Category: Medical Plan: Patient follows with a private psychiatrist every 2 months and is presently on alprazolam, lamotrigine and duloxetine. He feels symptoms are well managed at this time and he will continue to follow with his psychiatrist. (4) Hyperlipidemia: Code(s): E78.5 - Hyperlipidemia, unspecified Category: Medical Plan: Avoid foods that are high in cholesterol such as red meat, fried foods, eggs and baked goods. Triglyceride goal of less than 150 and LDL goal of less than 70. Continue on atorvastatin 80. His last cholesterol was mildly elevated from his goal however he states he can not afford the Zetia prescription. Plan to redraw labs and discuss further at that time. (5) Hypertension: Code(s): I10 - Essential (primary) hypertension Category: Medical Plan: Continue on current blood pressure medication. Avoid salt intake and encourage healthy diet and regular exercise. (6) Chronic GERD: Comment: s/p fundoplication with Dr. Holt EGD 10/2023 repeat in 3 years Code(s): K21.9 - Gastro-esophageal reflux disease without esophagitis Category: Medical Plan: Avoid trigger foods such as citrus, tomato products, soda, caffeine, spicy foods and other foods that may be irritating to your stomach. Avoid laying flat 3-4 hours after eating and elevate the head of the bed 30 degrees to prevent acid from moving into the esophagus. He notes since his surgery he has seen much improvement in his no longer needing medication for acid reflux. He had recent endoscopy with Dr. Holt 10/2023 and advised to follow up in 3 years. (7) CAD (coronary artery disease): Comment: Nonobstructive by cardiac catheterization with mid LAD 30% stenosis done for exertional chest pain and positive treadmill stress test, 2012 Code(s): I25.10 - Atherosclerotic heart disease of [place] coronary artery without angina pectoris Category: Medical Plan: Patient has diagnosis of coronary artery disease recommend tight control of cholesterol with LDL goal less than 70 presently on atorvastatin 80. Continue on metoprolol and losartan for blood pressure management and daily aspirin. (8) Right ankle pain: Code(s): M25.571 - Pain in right ankle and joints of right foot Category: Medical Plan: Patient having continued right ankle pain since sprain injury several months ago. Recommending physical therapy at this time and referral was placed today. Continue with the use of a compression brace however encouraged gentle stretching to prevent ankle stiffness and limited mobility. (9) Back pain: Code(s): M54.9 - Dorsalgia, unspecified Category: Medical Plan: Patient having chronic low back pain with intermittent flares which are typically managed with topical muscle rubs. Recommend physical therapy at this time and can consider referral to pain management if symptoms worsen or persist. No recent injury or fall. Previous lumbar spine x-ray from 2021 showed mild arthritis, likely has progressed. (10) Obesity: Code(s): E66.9 - Obesity, unspecified Category: Medical Plan: Healthy diet and regular exercise is encouraged. Plan Management of depression and anxiety continues under Genia Barnardakafabian with medications alprazolam, lamotrigine, and duloxetine. For hypertension, metoprolol, losartan, and amlodipine are well-titrated. Continued coronary artery disease monitoring is planned with aspirin and cholesterol management. GERD is resolved with no current medication; esophagus health monitored by Dr. Holt. Full resolution of bladder issues with catheter use has been noted. Regular PSA monitoring is advised in conjunction with urological recommendations. Arthritis-related back pain requires ongoing physical therapy and modified activities. Comprehensive blood tests will be done in preparation for follow-up visits, including fasting labs to assess lipid, glucose levels. Ankle sprain warrants continued physical therapy. Positive changes in body weight and blood pressure have been achieved. Referrals and specialist involvement in care coordination ensure optimal management. This note was constructed using voice recognition software. While every effort has been made to ensure accuracy and volunteer specialist, still areas may have been included sometimes these areas may affect the content or meeting of the given symptoms. Total time spent caring for the patient today was 30 minutes. This includes time spent before the visit reviewing the chart, time spent during the visit, and time spent after the visit and documentation. Patient was informed and verbally consented to the use of an ambient scribe for clinic note documentation during this visit. Orders: Orders Comprehensive Met. Panel Today I25.10 - Atherosclerotic heart disease of [place] coronary artery without angina pectoris, Z00.00 - Encounter for general adult medical examination without abnormal findings TSH reflex Free T4 Today F32.A - Depression, unspecified, Z00.00 - Encounter for general adult medical examination without abnormal findings Free T4 (Free Thyroxine) Today F32.A - Depression, unspecified, Z00.00 - Encounter for general adult medical examination without abnormal findings PSA, Ultra Sensitive Today Z00.00 - Encounter for general adult medical examination without abnormal findings Hemoglobin A1c Today Z13.1 - Encounter for screening for diabetes mellitus Complete Blood Count Auto Diff Today I25.10 - Atherosclerotic heart disease of [place] coronary artery without angina pectoris, Z00.00 - Encounter for general adult medical examination without abnormal findings Lipid Panel Today E78.00 - Pure hypercholesterolemia, unspecified, I25.10 - Atherosclerotic heart disease of [place] coronary artery without angina pectoris Vitamin B12 and Folate Today I25.10 - Atherosclerotic heart disease of [place] coronary artery without angina pectoris, Z00.00 - Encounter for general adult medical examination without abnormal findings Vitamin D 25-OH Total Today I25.10 - Atherosclerotic heart disease of [place] coronary artery without angina pectoris, Z00.00 - Encounter for general adult medical examination without abnormal findings PT Evaluation and Treatment Today M25.571 - Pain in right ankle and joints of right foot, M54.9 - Dorsalgia, unspecified
[2025-01-11 10:33] VITALS: BP 130/68; PULSE 71; TEMP 36.3; O2SAT 95; BMI 31.5
--- OUTSIDE RECORDS SUMMARY | 2025-01-11 12:19 | XMS_ITS ---
Author Organization [facility] Address [address] [place] [phone] Care Team Providers Care Furniture Sales Associate Name Role Phone Polina BRIDGES, Dimas Primary Care Provider Trino Grimaldo [phone] Encounters Encounter Location Date Provider Diagnosis [facility] [address] [facility] [address] [place] [phone] 10/03/2023 Trino Holt Plan Of Treatment No Information Progress Notes * HILDA CALDWELLDOB:1960 (63 yo M)Acc No.[id number]:10/03/2023 Patient:?TORRES HILDA :1960???Age:63 Y???Sex:Male Address:[address] [place] [id number] * true * Date:? Generated for Carol bowers/Darrian/eTransmitting on:?01/11/2025 12:19 PM EDT
--- OUTSIDE RECORDS SUMMARY | 2025-01-11 12:19 | XMS_ITS | Patient Health Record ---
Author Organization [facility] Address [address] [place] [phone] Care Team Providers Care Ocean Transportation Intermediary Name Role Phone Dimas Fish MD Primary Care Provider Trino Grimaldo Unavailable [phone] Allergies No Known Allergies Reason For Referral [...] Notes Problem Gastro-esophageal reflux disease without esophagitis (202060139) Gastro-esophageal reflux disease without esophagitis (K21.9) Active confirmed Problem 153674565 Encounter for screening for malignant neoplasm of colon (Z12.11) Active confirmed Problem Benign neoplasm of colon (84142914) Colon polyps (K63.5) Active confirmed Problem 827621429 Gastroesophageal reflux disease, esophagitis presence not specified (K21.9) Active confirmed Problem Hiatal hernia (54504911) Hiatal hernia (K44.9) Active confirmed Problem Gama esophagus (065889322) 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
--- OUTSIDE RECORDS SUMMARY | 2025-01-11 12:20 | XMS_ITS ---
Author Organization [facility] Address [address] [place] [address] Care Team Providers Care Finisher Map And Chart Name Role Phone Polina BRIDGES, Dimas Primary Care Provider Trino Grimaldo [phone] REASON FOR VISIT renee's, hiatal hernia Problems Problem Type SNOMED Code ICD Code Onset Dates Problem Status W/U Status Risk Notes Problem Gastro-esophagea l reflux disease without esophagitis (242298631) Gastro-esophage al reflux disease without esophagitis (K21.9) Active confirmed Problem Chronic gastritis (6012136) Chronic gastritis (K29.50) Active confirmed Problem Renee's esophagus (352700424) 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) Active confirmed Encounters Encounter Location Date Provider Diagnosis [facility] Outpatient [address] [place] [phone] 10/21/2023 Trino Holt Gastro-esophageal reflux disease without [...] No Information Progress Notes * HILDA CALDWELLDOB:1960 (64 yo M)Acc No.[id number]:10/21/2023 EGD/MAC Patient:HILDA ABEL Provider:?Trino Holt MD :1960???Age:63 Y???Sex:Male Randall e:10/21/2023 Address:[address] [place] [address] Pcp:Dimas Fish MD Subjective: * Chief Complaints: * ???1. Renee's, hiatal sonia ia. * Medical History:? Objective: * Vitals:? Assessment: * Assessment: 1.?Gastro-esophageal reflux disease without esophagitis - K21.9 (Primary)???2.?Hiatal hernia - K44.9???3.?Chronic gastritis - K29.50???4.?Other specified postprocedural states - Z98.890???5.?Renee''s esophagus without dysplasia - K22.70??? Plan: * Treatment: * Procedure Codes:?48304 UPPER GI ENDOSCOPY, BIOPSY, 3216F PT IMMUNITY TO HEP B DOCD * * The named appointment provid er may or may not be the originator of this progress note, and it is not deemed complete until electronically signed by the appointment provider. Sign off status: Pending * Provider:?Trino Holt MD Date:? 024 Generated for Carol bowers/Darrian/eTransmitting on:?01/11/2025 12:20 PM EDT
--- OUTSIDE RECORDS SUMMARY | 2025-01-11 12:20 | XMS_ITS ---
Author Organization [facility] Address [address] [place] [address] Care Team Providers Care Senior Software Engineering Manager Name Role Phone Polina BRIDGES, Dimas Primary Care Provider Trino Grimaldo Unavailable [phone] Agusto Hale Jr Unavailable [phone] Allergies No Known Allergies REASON FOR VISIT [...] 08/17/2023 Encounters Encounter Location Date Provider Diagnosis [facility] [address] [place] [address] 08/17/2023 Agusto Hale Jr Hiatal hernia K44.9 [...] Notes * HILDA CALDWELLDOB:1960 (63 yo M)Acc No.[id number]:08/17/2023 Progress Notes Patient:?HILDA CALDWELL Provider:?Agusto Hale MD :1960???Age:63 Y???Sex:Male Randall e:08/17/2023 Address:[address] [place], [place] [id number] Pcp:Dimas Fish MD Subjective: * Chief Complaints: [...] Gama's esophagus. * Medical History:?Hypertensio n, Denies [place],DM,CVA,Lung disease,renal disease, Depression and anxiety, Elevated Cholesterol, [...] 08/17/2023)* sched for 10/14/23 at 11:50 a [facility] * Procedure Codes:?3017F COLOR ECTAL CA SCREEN DOC REV, G9745 DOC RSN FOR NOT SCREEN/REC F/U HBP * Preventive Medicine:? ??Counseling:?Care goal follow-up plan:?Above Normal BMI Follow-up?Giving encouragement to exercise,?BMI management provided?Yes.? * Follow Up:?1 Year * * Sign off status: Completed true * Provider:?Agusto Hale MD Date:?10/17/2022 Generated for Carol bowers/Darrian/Breonnaitting on:?01/11/2025 12:19 PM EDT History and Physical Notes * [...]
== END 2025-01-11 11:18 | disposition home or self-care (01) ==
LOC: HO.HMCH 10:28
PROVIDERS: PCP Internal Medicine
DX: R06.09 Other forms of dyspnea (principal); N31.9 Neuromuscular dysfunction of bladder, unspecified; Z68.31 Body mass index [BMI] 31.0-31.9, adult; E66.9 Obesity, unspecified; F32.A Depression, unspecified; E78.5 Hyperlipidemia, unspecified; I10 Essential (primary) hypertension; K21.9 Gastro-esophageal reflux disease without esophagitis; I25.10 Atherosclerotic heart disease of native coronary artery without angina pectoris; M25.571 Pain in right ankle and joints of right foot; M54.9 Dorsalgia, unspecified

== ENCOUNTER → 2025-01-11 10:27 | Outpatient (BNVA) | payer MEDICARE, SELFPAY | PROVIDERS: PCP Internal Medicine | DX: R06.09 Other forms of dyspnea (principal); N31.9 Neuromuscular dysfunction of bladder, unspecified; F32.A Depression, unspecified; E78.5 Hyperlipidemia, unspecified; I10 Essential (primary) hypertension; K21.9 Gastro-esophageal reflux disease without esophagitis; I25.10 Atherosclerotic heart disease of native coronary artery without angina pectoris; M25.571 Pain in right ankle and joints of right foot; M54.9 Dorsalgia, unspecified; E66.9 Obesity, unspecified | CPT/HCPCS: 96127; 99212 ==

== ENCOUNTER 2025-01-27 08:25 | Outpatient (REF) | payer MEDICARE, SELFPAY ==
--- OUTSIDE RECORDS SUMMARY | 2025-01-27 08:37 | XMS_ITS ---
Author Organization [facility] Address [address] [place] [address] Care Team Providers Care Marine Engineering Technicians Name Role Phone Polina BRIDGES, Dimas Primary Care Provider Trino Grimaldo [phone] Encounters Encounter Location Date Provider Diagnosis [facility] [address] [facility] [address] [place] [phone] 10/03/2023 Trino Holt Plan Of Treatment No Information Progress Notes * HILDA CALDWELLDOB:1960 (63 yo M)Acc No.[id number]:10/03/2023 Patient:?TORRES HILDA :1960???Age:63 Y???Sex:Male Address:[address] [place] [id number] * true * Date:? Generated for Carol bowers/Darrian/eTransmitting on:?01/27/2025 08:36 AM EDT
--- OUTSIDE RECORDS SUMMARY | 2025-01-27 08:37 | XMS_ITS ---
Author Organization [facility] Address [address] [place] [address] Care Team Providers Care Stock Cutter Name Role Phone Polina BRIDGES, Dimas Primary Care Provider Trino Grimaldo [phone] REASON FOR VISIT renee's, hiatal hernia Problems Problem Type SNOMED Code ICD Code Onset Dates Problem Status W/U Status Risk Notes Problem Gastro-esophagea l reflux disease without esophagitis (681910734) Gastro-esophage al reflux disease without esophagitis (K21.9) Active confirmed Problem Chronic gastritis (0915364) Chronic gastritis (K29.50) Active confirmed Problem 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) Active confirmed Encounters Encounter Location Date Provider Diagnosis [facility] Outpatient [address] [place] [phone] 10/21/2023 Trino Holt Gastro-esophageal reflux disease without [...] Notes * HILDA CALDWELLDOB:1960 (64 yo M)Acc No.[id number]:10/21/2023 EGD/MAC Patient:?HILDA CALDWELL Provider:?Trino Holt MD :1960???Age:63 Y???Sex:Male Randall e:10/21/2023 Address:[address] [place] [address] Pcp:Dimas Fish MD Subjective: * Chief Complaints: * ???1. Renee's, hiatal sonia ia. * Medical History:? Objective: * Vitals:? Assessment: * Assessment: 1.?Gastro-esophageal reflux disease without esophagitis - K21.9 (Primary)???2.?Hiatal hernia - K44.9???3.?Chronic gastritis - K29.50???4.?Other specified postprocedural states - Z98.890???5.?Renee''s esophagus without dysplasia - K22.70??? Plan: * Treatment: * Procedure Codes:?74037 UPPER GI ENDOSCOPY, BIOPSY, 3216F PT IMMUNITY TO HEP B DOCD * * The named appointment provid er may or may not be the originator of this progress note, and it is not deemed complete until electronically signed by the appointment provider. Sign off status: Pending * Provider:?Trino Holt MD Date:? 024 Generated for Carol bowers/Darrian/eTjerrismitting on:?01/27/2025 08:37 AM EDT
--- OUTSIDE RECORDS SUMMARY | 2025-01-27 08:37 | XMS_ITS ---
Author Organization [facility] Address [address] [place] [address] Care Team Providers Care Liaison Planner Name Role Phone Polina BRIDGES, Dimas Primary Care Provider Trino Grimaldo Unavailable [phone] Agusto Hale Jr Unavailable Allergies No Known [...] 08/17/2023 Encounters Encounter Location Date Provider Diagnosis [facility] [address] [place] [address] 08/17/2023 Agusto Hale Jr Hiatal hernia K44.9 [...] Notes * HILDA CALDWELLDOB:1960 (63 yo M)Acc No.[id number]:08/17/2023 Progress Notes Patient:?HILDA CALDWELL Provider:?Agusto Hale MD :1960???Age:63 Y???Sex:Male Randall e:08/17/2023 Address:[address] [place], [place] [phone] Pcp:Dimas Fish MD Subjective: * Chief Complaints: [...] Gama's esophagus. * Medical History:?Hypertensio n, Denies [place],DM,CVA,Lung disease,renal disease, Depression and anxiety, Elevated Cholesterol, [...] 08/17/2023)* sched for 10/14/23 at 11:50 a [facility] * Procedure Codes:?3017F COLOR ECTAL CA SCREEN DOC REV, G9745 DOC RSN FOR NOT SCREEN/REC F/U HBP * Preventive Medicine:? ??Counseling:?Care goal follow-up plan:?Above Normal BMI Follow-up?Giving encouragement to exercise,?BMI management provided?Yes.? * Follow Up:?1 Year * * Sign off status: Completed true * Provider:?Agusto Hale MD Date:?10/17/2022 Generated for Carol bowers/Darrian/Breonnaitting on:?01/27/2025 08:37 AM EDT History and Physical Notes * HPI [...]
--- OUTSIDE RECORDS SUMMARY | 2025-01-27 08:37 | XMS_ITS | Patient Health Record ---
Author Organization [facility] Address [address] [place] [address] Care Team Providers Care Phosphorus Processing Supervisor Name Role Phone Dimas Fish MD Primary Care Provider Trino Grimaldo Unavailable [phone] Allergies No Known Allergies Reason For Referral [...] Notes Problem Gastro-esophageal reflux disease without esophagitis (521947068) Gastro-esophageal reflux disease without esophagitis (K21.9) Active confirmed Problem 592113564 Encounter for screening for malignant neoplasm of colon (Z12.11) Active confirmed Problem Benign neoplasm of colon (01362902) Colon polyps (K63.5) Active confirmed Problem 015054542 Gastroesophageal reflux disease, esophagitis presence not specified (K21.9) Active confirmed Problem Hiatal hernia (58231403) Hiatal hernia (K44.9) Active confirmed Problem Gama esophagus (092350918) 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 Problem Chronic gastritis (0406814) Chronic gastritis (K29.50) Active confirmed Problem Gama's esophagus (612601299) 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) Active confirmed Problem Gastroesophagitis (24628289) Gastro-esophageal reflux disease with esophagitis, without bleeding [...] OF [place] [address] [place] [address] [id number] HILDA MACDONALD Self - patient is the insured [employer] CLAIM[employer] [address] [place] [address] [id number] HILDA MACDONALD Self - patient is the insured Medical (General) History Medical History History ICD Code Hypertension Denies [place],DM,CVA,Lung disease,renal dise ase Depression and anxiety Elevated [...]
[2025-01-27 08:38] LABS: MANUAL DIFF FLAG NO
[2025-01-27 08:46] LABS: Basophils Percent Auto 0.6 % (0-2); Eosinophils Absolute Auto 0.1 X10*3/uL (0.0-0.4); Eosinophils Percent Auto 2.2 % (0-4); Hematocrit 47.8 % (42.0-52.0); Hemoglobin 15.8 g/dl (14.0-18.0); Imm Gran Abs Auto 0.02 X10*3/uL (0.00-0.03); Imm Gran Pct Auto 0.3 % (0.0-0.4); Lymphocytes Absolute Auto 1.9 X10*3/uL (1.2-4.9); Lymphocytes Percent Auto 28.7 % (20-40); Mean Corpuscular HGB Conc 33.1 g/dl (31.0-36.0); Mean Corpuscular Hemoglobin 30.3 pg (27.0-33.0); Mean Corpuscular Volume 91.7 fL (80.0-98.0); Mean Platelet Volume 10.8 fL (9.4-12.4); Monocytes Absolute Auto 0.6 X10*3/uL (0.1-1.2); Monocytes Percent Auto 8.7 % (2-11); Neutrophils Absolute Auto 3.8 x10*3/uL (2.0-8.3); Neutrophils Percent Auto 59.5 % (45-73); Platelet Count 167 X10*3/uL (160-400); Red Blood Count 5.21 X10*6/uL (4.60-5.80); Red Cell Distribution Width 12.2 % (11.0-16.0); White Blood Count 6.4 X10*3/uL (4.8-10.8)
[2025-01-27 08:53] LABS: Estimated Average Glucose 111 mg/dL; Hemoglobin A1C 152.9805 umol/L; Hemoglobin A1c % 5.5 % (<6.0); Total Hemoglobin (HGBA1C) 4130.2731 umol/L
[2025-01-27 09:30] LABS: Alanine Aminotransferase 29 U/L (0-40); Albumin Level 4.5 g/dL (3.5-5.0); Alkaline Phosphatase 83 U/L (39-117); Anion Gap 13 (12-20); Aspartate Amino Transferase 31 U/L (5-37); Bilirubin Total 0.8 mg/dL (0.0-1.0); Blood Urea Nitrogen 24 mg/dL (9-16); Calcium 9.8 mg/dL (8.4-10.2); Carbon Dioxide 26 mmol/L (22-29); Chloride 105 mmol/L (96-108); Cholesterol 156 mg/dL (<200); Estimated Glomerular Filt Rate > 60; Glucose Random 106 mg/dL (60-115); HDL Cholesterol 40 mg/dL (>40); LDL Cholesterol Calculated 87 mg/dL (<100); Potassium 4.6 mmol/L (3.3-5.1); Sodium 139 mmol/L (135-145); Total Protein 8.1 g/dL (6.5-8.0); Triglycerides 149 mg/dL (<150)
[2025-01-27 09:50] LABS: TSH reflex Free T4 2.01 uIU/mL (0.32-4.0)
[2025-01-27 09:52] LABS: Folate 5.2 ng/mL (> or = 4.0); Vitamin B12 418 pg/mL (200-900)
[2025-02-01 23:08] LABS: PSA, Ultra Sensitive 0.56 ng/mL
== END 2025-01-27 08:26 | disposition home or self-care (01) ==
LOC: HO.LAB 08:25
DX: Z00.00 Encounter for general adult medical examination without abnormal findings (principal); I25.10 Atherosclerotic heart disease of native coronary artery without angina pectoris; E78.00 Pure hypercholesterolemia, unspecified; F32.A Depression, unspecified; Z13.1 Encounter for screening for diabetes mellitus; Z12.5 Encounter for screening for malignant neoplasm of prostate
CPT/HCPCS: 36415; 80053; 80061; 82306; 82607; 82746; 83036; 84153; 84439; 84443; 85025

== ENCOUNTER 2025-03-29 08:52 | Outpatient (REF) | payer MEDICARE, SELFPAY ==
--- NOTE | ~2025-03-29 | US_ITS ---
CLINICAL HISTORY: N31.9 - Neuromuscular dysfunction of bladder, unspecified US of kidneys Comparison: US/SR - US RETROPERITONEAL COMP - 09/10/23 10:09 EST Findings: Right kidney is normal in size, echogenicity and morphology, 11.4 cm in length. No calculus, mass or hydronephrosis. Left kidney is normal in size, echogenicity and morphology, 11.5 cm in length. No calculus, mass or hydronephrosis. Limited color Doppler demonstrates unremarkable bilateral blood flow. Impression: 1. Normal renal ultrasound. This document has been electronically signed by: Tammie Reyes MD on 03/30/2025 09:27:12
--- OUTSIDE RECORDS SUMMARY | 2025-03-29 09:06 | XMS_ITS | Patient Health Record ---
Author Organization [facility] Address [address] [place] [address] Care Team Providers Care Senior Supply Chain Analyst Name Role Phone Dimas Fish MD Primary Care Provider Trino Grimaldo Unavailable [phone] Allergies No Known Allergies Reason For Referral [...] Notes Problem Gastro-esophageal reflux disease without esophagitis (096529142) Gastro-esophageal reflux disease without esophagitis (K21.9) Active confirmed Problem 611848228 Encounter for screening for malignant neoplasm of colon (Z12.11) Active confirmed Problem Benign neoplasm of colon (78264315) Colon polyps (K63.5) Active confirmed Problem 554501566 Gastroesophageal reflux disease, esophagitis presence not specified (K21.9) Active confirmed Problem Hiatal hernia (78384688) Hiatal hernia (K44.9) Active confirmed Problem Gama esophagus (128647369) 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 Problem Chronic gastritis (8249579) Chronic gastritis (K29.50) Active confirmed 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 Problem Gastroesophagitis (59351529) Gastro-esophageal reflux disease with esophagitis, without bleeding [...] OF [place] [address] [place] [address] [phone] [id number] HILDA MACDONALD Self - patient is the insured [employer] CLAIM[employer] [address] [place] [address] [phone] [id number] HILDA MACDONALD Self - patient is the insured Medical (General) History Medical History History ICD Code Hypertension Denies [place],DM,CVA,Lung disease,renal dise ase Depression and anxiety Elevated [...]
== END 2025-03-29 08:53 | disposition home or self-care (01) ==
LOC: HO.US 08:52
PROVIDERS: Visit Provider Urology
DX: N31.9 Neuromuscular dysfunction of bladder, unspecified (principal); N39.0 Urinary tract infection, site not specified
CPT/HCPCS: 76775

== ENCOUNTER → 2025-03-29 08:54 | Outpatient (BNV) | payer MEDICARE, SELFPAY | PROVIDERS: Visit Provider Radiology Diagnostic Radiology | DX: N31.9 Neuromuscular dysfunction of bladder, unspecified (principal) | CPT/HCPCS: 76775 ==

== ENCOUNTER 2025-04-19 10:34 | Outpatient (AMB) | payer MEDICARE, SELFPAY ==
--- OUTSIDE RECORDS SUMMARY | 2023-10-21 07:40 | XMS_ITS ---
Author Organization [facility] Address [address] [place] [id number] Care Team Providers Care Income Tax Auditor Name Role Phone Linda Salmon Primary Care Provider UnaTrino Rosales Unavailable [phone] REASON FOR VISIT renee's, hiatal hernia Problems Problem Type SNOMED Code ICD Code Onset Dates Problem Status W/U Status Risk Notes Problem Gastro-esophagea l reflux disease without esophagitis (634550305) Gastro-esophage al reflux disease without esophagitis (K21.9) Active confirmed Problem Chronic gastritis (7520237) Chronic gastritis (K29.50) Active confirmed Problem 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) Active confirmed Encounters Encounter Location Date Provider Diagnosis [facility] Outpatient [address] [place] [id number] 10/21/2023 Trino Holt Gastro-esophageal reflux disease without esophagitis K21.9 ; Hiatal hernia K44.9 ; Chronic gastritis K29.50 ; Other specified postprocedural states Z98.890 and Renee''s esophagus without dysplasia K22.70 Assessments Encounter Date Diagnosis (ICD Code) Assessment Notes Treatment Notes Treatment Clinical Notes Section Notes 10/21/2023 Gastro-esophageal reflux disease without esophagitis (ICD-10 - K21.9) 10/21/2023 Hiatal hernia (ICD-10 - K44.9) 10/21/2023 Chronic gastritis (ICD-10 - K29.50) 10/21/2023 Other specified postprocedural states (ICD-10 - Z98.890) 10/21/2023 Renee''s esophagus without dysplasia (ICD-10 - K22.70) Plan Of Treatment Next Appt Details Provider Name:Trino Holt , 08/15/2025 02:20:00 PM, [address], [address], [place], [address], Progress Notes * HILDA MACDONALDDOB:1960 (64 yo M)Acc No.[id number]:10/21/2023 EGD/MAC Patient: HILDA JENNINGS Provider: Dominguez Holt MD :1960 A ge:63 Y S ex:Male Date:10/21/2023 Address:[address] [place], [place] [id number] Pcp:KIMI Schroeder Subjective: * Chief Complaints: * 1 . Renee's, hiatal hernia. * Medical History: Objective: * Vitals: Assessment: * Assessment: 1. G samy-esophageal reflux disease without esophagitis - K21.9 (Primary) 2 .?Hiatal hernia - K44.9 3 . C hronic gastritis - K29.50 4 .?Other specified postprocedural states - Z98.890 5 . B arrett''s esophagus without dysplasia - K22.70 Plan: * Treatment: * Procedure Codes: 4 3239 UPPER GI ENDOSCOPY, BIOPSY, 3216F PT IMMUNITY TO HEP B DOCD * * The named appointment provid er may or may not be the originator of this progress note, and it is not deemed complete until electronically signed by the appointment provider. Sign off status: Pending * Provider: Dominguez Holt MD Date: 0 10/21/2023 Generated for Carol bowers/Darrian/Aaronransmitting on: 0 04/19/2025 11:33 AM EDT
--- NOTE | 2025-04-19 10:44 | A.OFFPC_ITS ---
Vital Signs 04/19/25 10:45 Height 5 ft 8 in Weight 203 lb 4 oz BMI 30.9 Blood Pressure Location Lt brachial Position Sitting Pulse Source Pulse Oximeter Temp Source Temporal Artery Scan Oxygen Delivery Method Room Air Intake Visit Reasons: AWV G0438 Recruiting Coordinator Required: No Accompanied by: Self / Same As Patient Allergies diphenhydramine (From Benadryl) Allergy (Unknown, Verified 04/19/25 10:51) aggitated,itch,rash Medication List - Last Reconciled 04/19/25 by Linda Marquez PA-C alprazolam 1 mg PO BID alprazolam 0.5 mg PO DAILY PRN amlodipine 10 mg PO DAILY atorvastatin 80 mg PO DAILY cholecalciferol (vitamin D3) 25 mcg PO DAILY duloxetine 60 mg PO DAILY lamotrigine 150 mg PO QAM losartan 100 mg (2 x 50 mg) PO DAILY 90 days metoprolol succinate ER 50 mg PO DAILY tamsulosin (Flomax) 0.4 mg PO BID Tobacco use date assessed: 04/19/25 Fall risk assessment: 2 + Falls in past year Last assessed Fall Risk: 04/19/25 Dental Screening Dental Screen Date: 04/19/25 Did you have a dental visit in the last 12 months?: Yes Did you have a dental problem in the last 6 months where you did not have access to dental care?: No Was dental information given to patient?: No HPI AWV G0438 HPI Details 64-year-old male with past medical histo ry of GERD, hypertension, hyperlipidemia, dementia, depression, coronary artery disease, BPH, neurogenic bladder last seen 12/2024 coming in for annual exam. Eye exam: Colonoscopy: Vaccines: [facility] Medical History CAD (coronary artery disease) Depression Dementia Hyperlipidemia Hypertension Colon polyps Chronic GERD GERD (gastroesophageal reflux disease) Anxiety Depression High cholesterol Surgical History History of esophagogastroduodenoscopy (EGD) History of left knee surgery Hx of appendectomy Hx of colonoscopy Family History Father Past heart attack Mother Hypertension Other Mental health disorder Social History Housing: House Alcohol intake: current Alcohol intake frequency: 0-2 drinks per day Patient Tobacco Use Status: Never used Tobacco Tobacco use type: Cigarette e-Cigarette/Vaping Use: Never Used Second Hand Smoke Exposure: No Advance Directives Date on File: 07/09/20 service: No Current occupational status: retired Cognitive needs: No Hearing needs: No Vision needs: Yes (Glasses) Questionnaire PHQ-9 Over the last 2 weeks, how often have you been bothered by any of the following problems? 1. Little interest or pleasure in doing things: more than half the days 2. Feeling down, depressed, or hopeless: more than half the days 3. Trouble falling or staying asleep, or sleeping too much: nearly every day 4. Feeling tired or having little energy: nearly every day 5. Poor appetite or overeating: not at all 6. Feeling bad about yourself - or that you are a failure or have let yourself or your family down: not at all 7. Trouble concentrating on things, such as reading the newspaper or watching television: more than half the days 8. Moving or speaking so slowly that other people could have noticed. Or the opposite - being so fidgety or restless that you have been moving around a lot more than usual: not at all 9. Thoughts that you would be better off or of hurting yourself in some way: several days Total score: 13 Depression Screening Interpretation: Positive Depression Screening Follow-up: Existing condition and In treatment Depression Screening Done: Yes Source: Developed by Drs. Trino Lindsey, Ed Powell and colleagues, with an educational imer from [employer]. Thrive Questionnaire Date Thrive assessed: 04/19/25 AUDIT C Alcohol Use Questionnaire (AUDIT-C) 2. How many drinks containing alcohol do you have on a typical day when you are drinking?: 1 or 2 3. How often do you have six or more drinks on one occasion?: Never Total Score: 0 PEG-7 AMB Questionnaire PEG-7 Date PEG - 7 assessed: 04/19/25 Source: Developed by Solange French Kurt Kroenke and colleagues, with an educational imer from [employer] Physical exam (Primary Care) Vital Signs: Oxygen Delivery Method Room Air 04/19/25 10:45 Tobacco/Smoking Status: Tobacco use Status Tobacco use date assessed 04/19/25 04/19/25 10:46 Patient Tobacco Use Status Never used Tobacco 04/19/25 10:46 Tobacco use type Cigarette 04/19/25 10:46 e-Cigarette/Vaping Use Never Used 04/19/25 10:46 Depression Screening Interpretation: Positive Depression Screening Follow-up: Existing condition and In treatment Thrive Assessment: Date of Thrive Assessment Date Thrive assessed 04/19/25 04/19/25 10:46 Coding
[2025-04-19 10:45] VITALS: BP 128/66; PULSE 76; TEMP 36.6; O2SAT 95; BMI 30.9
--- NOTE | 2025-04-19 10:52 | A.OFFVIS_ITS ---
Intake Vital Signs 04/19/25 10:45 Height 5 ft 8 in Weight 203 lb 4 oz BMI 30.9 BP 128/66 Blood Pressure Location Lt brachial Position Sitting Pulse 76 Pulse Source Pulse Oximeter Temp 97.8 F Temp Source Temporal Artery Scan Pulse Oximetry (%) 95 Oxygen Delivery Method Room Air Intake Visit Reasons: AWV G0438 Allergies diphenhydramine (From Benadryl) Allergy (Unknown, Verified 04/19/25 10:51) aggitated,itch,rash Medication List - Last Reconciled 04/19/25 by Linda Marquez PA-C alprazolam 1 mg PO BID alprazolam 0.5 mg PO DAILY PRN amlodipine 10 mg PO DAILY atorvastatin 80 mg PO DAILY cholecalciferol (vitamin D3) 25 mcg PO DAILY duloxetine 60 mg PO DAILY lamotrigine 150 mg PO QAM losartan 100 mg (2 x 50 mg) PO DAILY 90 days metoprolol succinate ER 50 mg PO DAILY tamsulosin (Flomax) 0.4 mg PO BID HPI AWV G0438 HPI Details 64-year-old male with past medical histo ry of GERD, hypertension, hyperlipidemia, dementia, depression, coronary artery disease, BPH, neurogenic bladder last seen 12/2024 coming in for annual exam. Presenting for a wellness visit and management of chronic conditions. Vitamin D deficiency was identified in previous blood work, and supplementation was initiated. The patient reports seeing a fresh foods technician for pulmonary function concerns, with follow-up scheduled in May. Ankle injury persists, with ongoing physical therapy since March. Dehydration was noted in recent lab results, attributed to hot weather and medication effects. Hyperlipidemia management is complicated by insurance coverage issues for Zetia, with dietary modifications recommended. Dizziness and lightheadedness occur with rapid position changes or overexertion, with plans for further cardiac evaluation. Eye exam: UTD Colonoscopy: Up-to-date with Dr. Holt 2019 scheduled Jul 2025 PSA: Up-to-date 01/2025 Vaccine: Due for pneumonia but declining today [facility] Medical History CAD (coronary artery disease) Depression Dementia Hyperlipidemia Hypertension Colon polyps Chronic GERD GERD (gastroesophageal reflux disease) Anxiety Depression High cholesterol Surgical History History of esophagogastroduodenoscopy (EGD) History of left knee surgery Hx of appendectomy Hx of colonoscopy Family History Father Past heart attack Mother Hypertension Other Mental health disorder Social History Housing: House Alcohol intake: current Alcohol intake frequency: 0-2 drinks per day Patient Tobacco Use Status: Never used Tobacco Tobacco use type: Cigarette e-Cigarette/Vaping Use: Never Used Second Hand Smoke Exposure: No Advance Directives Date on File: 07/09/20 service: No Current occupational status: retired Cognitive needs: No Hearing needs: No Vision needs: Yes (Glasses) Questionnaire Medicare Wellness Checkup What [age] What gender do you identify with?: male During the past 4 weeks, how much have you been bothered by emotional problems such as feeling anxious, depressed, irritable, sad or downhearted, and blue?: moderately During the past 4 weeks, has your physical & emotional health limited your social activities with family, friends, neighbors, or groups?: quite a bit During the past 4 weeks, how much bodily pain have you generally had?: mild pain During the past 4 weeks, was someone available to help you if you needed & wanted help?: yes, quite a bit During the past 4 weeks, what was the hardest physical activity you could do for at least 2 minutes?: moderate Can you get to places out of walking distance without help? (For eg., can you travel alone on buses, taxis or drive your car?): Yes Can you go shopping for groceries or clothes without someone's help?: Yes Can you prepare your own meals?: Yes Can you do your housework without help?: Yes Because of any health problems, do you need the help of another person with your personal care needs such as eating, bathing, dressing or getting around the house?: No Can you handle your own money without help?: Yes During the past 4 weeks, how would you rate your health in general?: good During the past 4 weeks how have things been going for you?: good & bad parts about equal Are you having difficulties driving your car?: no Do you always fasten your seat belt when you are in a car?: yes, usually During past 4 weeks, have you been bothered by the following: never: Trouble eating well?, Teeth or denture problems? and Problems using the telephone?, seldom: Falling or dizzy when standing up and often: Sexual problems? and Tiredness or fatigue? Have you fallen 2 or more times in the past year?: Yes Are you afraid of falling?: No Are you a smoker?: no During the past 4 weeks, how many drinks of wine, beer, or other alcoholic beverages did you have?: 2-5 drinks per week Do you exercise for about 20 minutes 3 or more times a week?: yes, most of the time Have you been given information to help with the following?: yes: Hazards in your house that might hurt you? and yes: Keeping track of your medications? How often do you have trouble taking medicines the way you have been told to take them?: I always take medicine as prescribed How confident are you that you can control & manage most of your health problems?: very confident What is your race?: White PHQ-9 Over the last 2 weeks, how often have you been bothered by any of the following problems? 1. Little interest or pleasure in doing things: more than half the days 2. Feeling down, depressed, or hopeless: more than half the days 3. Trouble falling or staying asleep, or sleeping too much: nearly every day 4. Feeling tired or having little energy: nearly every day 5. Poor appetite or overeating: not at all 6. Feeling bad about yourself - or that you are a failure or have let yourself or your family down: not at all 7. Trouble concentrating on things, such as reading the newspaper or watching television: more than half the days 8. Moving or speaking so slowly that other people could have noticed. Or the opposite - being so fidgety or restless that you have been moving around a lot more than usual: not at all 9. Thoughts that you would be better off or of hurting yourself in some way: several days Total score: 13 Depression Screening Interpretation: Positive Depression Screening Follow-up: Existing condition and In treatment Depression Screening Done: Yes 00642 - PHQ-9 Billing: Yes Source: Developed by Zak Frenchet B.W. Christiano, Ed Javier and colleagues, with an educational imer from [employer]. Review of Systems Const Denies body aches, Denies fatigue, Denies fever(s), Denies frequent falls, Denies headache(s) and Denies weakness Eyes Reports no additional complaints and Denies change in vision ENT Denies dysphagia, Denies dizziness, Denies facial pain, Denies headache(s), Denies nasal congestion and Denies odynophagia Card Denies chest pain, Denies syncope, Denies irregular heart rhythm, Denies leg edema, Reports lightheadedness, Denies dyspnea and Reports dyspnea on exertion Resp Denies cough, Denies dyspnea and Reports dyspnea on exertion GI Denies abdominal pain, Denies constipation, Denies dysphagia, Denies dyspepsia, Denies diarrhea, Denies nausea, Denies odynophagia and Denies vomiting Reports urinary frequency, Denies urinary hesitancy and Denies urinary urgency Musc Denies back pain and Denies myalgias Skin/Breast Reports system reviewed and no additional complaints, except as documented Neuro Denies dizziness, Denies syncope, Denies frequent falls, Denies headache(s) and Denies weakness Psych Reports no additional complaints Endo Denies fatigue Physical Exam Vital Signs: Last Vital Signs Temp 97.8 F 04/19/25 10:45 Pulse 76 04/19/25 10:45 BP 128/66 04/19/25 10:45 Pulse Ox 95 04/19/25 10:45 Oxygen Delivery Method Room Air 04/19/25 10:45 BMI result Body Mass Index 30.9 Const General: cooperative, healthy appearing, comfortable and no acute distress Orientation/consciousness: patient oriented x3 HEENT Head: Yes normocephalic Ears: hearing grossly normal bilaterally General nose exam: Normal external nose present Eyes General: appearance normal, both eyes and all related structures Conjunctivae: conjunctivae normal Neck Neck: Yes full ROM and Yes no lymphadenopathy Resp Effort & Inspection: normal respiratory effort Auscultation: clear to auscultation bilaterally, no crackles, no rales, no rhonchi and no wheezes Cardio Rate: regular rate Rhythm: regular rhythm Skin General skin exam: no rashes or lesions noted Neuro General: patient oriented x3 Gait exam (Neuro): Normal gait present Extrem General: Yes normal to inspection, Yes full ROM and No edema Psych Affect: normal affect Attitude: cooperative Insight: Good insight present (Psych) Judgement: Good judgement present (Psych) Assessment & Plan Assessment & Plan (1) Annual wellness visit: Code(s): Z00.00 - Encounter for general adult medical examination without abnormal findings Plan: [place] of care was reviewed with patient patient was provided with a written screening schedule. Healthcare proxy/ MOLST forms were reviewed with patient patient advised to bring completed forms to office to be scanned to chart Patient is up-to-date on all recommended routine screenings for his age. He is due for his pneumonia vaccine but is declining the vaccination today. Blood work is up-to-date and has been reviewed with the patient. He has good insight and cognition and able to make informed decisions about his health and wellness. (2) Dyspnea on exertion: Code(s): R06.09 - Other forms of dyspnea Plan: Patient is currently follow with pulmonology for management of dyspnea on exertion. Per last pulmonology note they were considering cardiac stress test however patient states he was scheduled for follow up to further discuss at that time. Continue to follow with pulmonology. Recently missed pulmonology appointment advised to reschedule this (3) Neurogenic bladder: Code(s): N31.9 - Neuromuscular dysfunction of bladder, unspecified Plan: Patient is currently following with Urology for neurogenic bladder and does self catheterize. Since implementing the catheterization he is no longer had urinary tract infections. Seeing Urology next week (4) Depression: Comment: Following with Funmilayo Peña every 2 monts Code(s): F32.A - Depression, unspecified Qualifiers: Active/Remission status: in partial remission Depression Type: major depressive disorder Major depression recurrence: recurrent Qualified Code(s): F33.41 - Major depressive disorder, recurrent, in partial remission Plan: Patient follows with a private psychiatrist every 2 months and is presently on alprazolam, lamotrigine and duloxetine. He feels symptoms are well managed at this time and he will continue to follow with his psychiatrist. (5) Hyperlipidemia: Code(s): E78.5 - Hyperlipidemia, unspecified Qualifiers: Hyperlipidemia type: mixed hyperlipidemia Qualified Code(s): E78.2 - Mixed hyperlipidemia Plan: Avoid foods that are high in cholesterol such as red meat, fried foods, eggs and baked goods. Triglyceride goal of less than 150 and LDL goal of less than 70. Continue on atorvastatin 80. His last cholesterol was mildly elevated from his goal however he states he can not afford the Zetia prescription. Last LDL mildly above goal he is declining medication adjustment at this time and plan to work on dietary and lifestyle modification. Understands the risk of elevated cholesterol over time (6) Hypertension: Code(s): I10 - Essential (primary) hypertension Qualifiers: Hypertension type: primary hypertension Qualified Code(s): I10 - Essential (primary) hypertension Plan: Continue on current blood pressure medication. Avoid salt intake and encourage healthy diet and regular exercise. (7) Chronic GERD: Comment: s/p fundoplication with Dr. Holt EGD 10/2023 repeat in 3 years Code(s): K21.9 - Gastro-esophageal reflux disease without esophagitis Plan: Avoid trigger foods such as citrus, tomato products, soda, caffeine, spicy foods and other foods that may be irritating to your stomach. Avoid laying flat 3-4 hours after eating and elevate the head of the bed 30 degrees to prevent acid from moving into the esophagus. He notes since his surgery he has seen much improvement in his no longer needing medication for acid reflux. He had recent endoscopy with Dr. Holt 10/2023 and advised to follow up in 3 years. (8) CAD (coronary artery disease): Comment: Nonobstructive by cardiac catheterization with mid LAD 30% stenosis done for exertional chest pain and positive treadmill stress test, 2012 Code(s): I25.10 - Atherosclerotic heart disease of [place] coronary artery without angina pectoris Qualifiers: Associated angina: without angina Coronary Disease-Associated Artery/Lesion type: [place] artery [place] vs. transplanted heart: [place] heart Qualified Code(s): I25.10 - Atherosclerotic heart disease of [place] coronary artery without angina pectoris Plan: Patient has diagnosis of coronary artery disease recommend tight control of cholesterol with LDL goal less than 70 presently on atorvastatin 80. Continue on metoprolol and losartan for blood pressure management and daily aspirin. Referral was placed to cardiology as he is supposed to be following yearly with them (9) Right ankle pain: Code(s): M25.571 - Pain in right ankle and joints of right foot Plan: Patient having continued right ankle pain since sprain injury several months ago. Recommending physical therapy at this time and referral was placed today. Continue with the use of a compression brace however encouraged gentle stretching to prevent ankle stiffness and limited mobility. Working with PT. (10) Back pain: Code(s): M54.9 - Dorsalgia, unspecified Plan: Patient having chronic low back pain with intermittent flares which are typically managed with topical muscle rubs. Currently working with PT and cons ider pain management referral. No recent injury or fall. Previous lumbar spine x-ray from 2021 showed mild arthritis, likely has progressed. (11) Obesity: Code(s): E66.9 - Obesity, unspecified Qualifiers: Body mass index: BMI 30.0-30.9 Obesity classification: adult class 1 (BMI 30 - 34.9) Obesity type: due to excess calories Serious obesity comorbidity presence: with serious comorbidity Qualified Code(s): E66.811 - Obesity, class 1; E66.09 - Other obesity due to excess calories; Z68.30 - Body mass index [BMI] 30.0-30.9, adult Plan: Healthy diet and regular exercise is encouraged. (12) Lightheaded: Code(s): R42 - Dizziness and giddiness Plan: Advised patient to increase water intake as he was dehydrated on last lab work. Plan to obtain EKG and Holter monitor for further evaluation. Referral was also placed to Cardiology. Plan The patient will continue vitamin D supplementation to address the deficiency noted in previous lab work. Follow-up with the fresh foods technician is scheduled for May to monitor pulmonary function concerns. Physical therapy will continue for the ankle injury, with consideration of its potential benefits for lumbar arthritis as well. The patient will maintain regular follow-ups with the mental health provider for depression management. Blood pressure is well-controlled, and no changes to hypertension management are necessary at this time. The patient is advised to increase fluid intake to address dehydration, particularly in hot weather. Dietary modifications are recommended to manage hyperlipidemia, given the insurance coverage issues with Zetia. A Holter monitor and EKG are planned to evaluate dizziness and lightheadedness, with a referral to a cafe associate for further assessment. The patient will continue current management for GERD following previous surgical intervention. Vaccination history for pneumonia is reviewed, and the patient is advised to monitor for any respiratory symptoms. This note was constructed using voice recognition software. While every effort has been made to ensure accuracy and nc machinist, still areas may have been included sometimes these areas may affect the content or meeting of the given symptoms. Total time spent caring for the patient today was 30 minutes. This includes time spent before the visit reviewing the chart, time spent during the visit, and time spent after the visit and documentation. Patient was informed and verbally consented to the use of an ambient scribe for clinic note documentation during this visit. Orders: Orders ECG 12 lead EKG Today R42 - Dizziness and giddiness ECG 3 day holter monitor Today R06.09 - Other forms of dyspnea, R42 - Dizziness and giddiness Referrals Cardiology Referral I10 - Essential (primary) hypertension, I25.10 - Atherosclerotic heart disease of [place] coronary artery without angina pectoris Quality Reporting (2019) Depression/Bipolar (159/160/161/177) PHQ-9: Total score: 13 Coding Level of Care Code Medicare Subsequent (G0439) Diagnoses Annual wellness visit Z00.00 Dyspnea on exertion R06.09 Neurogenic bladder N31.9 Recurrent major depressive disorder, in partial remission F33.41 Active/Remission status: in partial remission Depression Type: major depressive disorder Major depression recurrence: recurrent Mixed hyperlipidemia E78.2 Hyperlipidemia type: mixed hyperlipidemia Primary hypertension I10 Hypertension type: primary hypertension Chronic GERD K21.9 Coronary artery disease involving [place] coronary artery of [place] heart without angina pectoris I25.10 Associated angina: without angina Coronary Disease-Associated Artery/Lesion type: [place] artery [place] vs. transplanted heart: [place] heart Right ankle pain M25.571 Back pain M54.9 Class 1 obesity due to excess calories with serious comorbidity and body mass index (BMI) of 30.0 to 30.9 in adult E66.811; E66.09; Z68.30 Body mass index: BMI 30.0-30.9 Obesity classification: adult class 1 (BMI 30 - 34.9) Obesity type: due to excess calories Serious obesity comorbidity presence: with serious comorbidity Lightheaded R42 CPT Codes Advance Care Planning - Advance Care Planning discussion: On file, no changes ([id number]) Advance Care Planning - Time spent: 1-15 minutes, on File ([id number]) Additional Codes PHQ-9 - 91447 - PHQ-9 Billing: Yes ([id number]) Advance Care Planning Advance Care Planning discussion: On file, no changes Date of discussion: 04/19/25 Who was present: patient, myself Time spent: 1-15 minutes, on File Actual minutes spent: 5 Did not discuss due to Cultural/Spiritual beliefs: No
--- OUTSIDE RECORDS SUMMARY | 2025-04-19 11:33 | XMS_ITS | Encounter Summary ---
Author Organization [facility] Address [address] [facility] [address] [place] [id number] Phone Care Team Providers Care Superintendent [employer] Name Role Phone Dimas Fish MD Primary Care Provider [phone] Linda Marquez Primary Care Provide r Encounter Details Date Type Department Care Team (Late Contact Info) Description 08/17/2023 Procedure Pass [facility], Ct Scan - [address] [address] Social History Tobacco Use Types Packs/Day Years Used Date Smoking Tobacco: Never Smokeless Tobacco: Never Alcohol Use Standard Drinks/Week Comments Yes 2 (1 standard drink = 0.6 oz pur e alcohol) Education Answer Date Recorded Are you interested in more education? Not on klaudia e 01/16/2023 Are you concerned about learning? Not on file 01/16/2023 No 01/16/2023 No 01/16/2023 Digital Access Answer Date Recorded No 02/16/2023 No 02/16/2023 Reliable internet access at home? Not on file 02/16/2023 Device with a working camera? Not on file Sex and Gender Information Value Date Recorded Sex Assigned at Not on file Legal Sex Male 9:20 AM EDT Gender Identity Not on file Sexual Orientation Not on file documented as of this encounter Plan of Treatment Upcoming Encounters Date Type Department Care Team (Late Contact Info) Description 04/19/2025 2:00 PM EDT Office Visit [facility] [address] [place] [address] Reji Woodard PA-C [address] [place] [address] Antionemamta Kari Bill, CHEMICAL PLANT TECHNICAL DIRECTOR [address] [place] [address] 04/21/2025 2:00 PM EDT Office Visit [address] [phone] Reji Woodard PA-C [address] [place] [address] [place] [address] Janice Thomas, PT [address] [place], [place] 04/26/2025 2:15 PM EDT Office Visit [address] [phone] Reji Woodard PA-C [address] [place] [address] [place] [address] Janice Thomas, PT [address] [place] [address] 04/28/2025 2:00 PM EDT Office Visit [address] [phone] Reji Woodard PA-C [address] [place] [address] [place] [address] Janice Thomas, PT [address] [place] [address] documented as of this encounter Visit Diagnoses Not on filedocumented in this encounter Additional Health Concerns Infection Onset Date Last Indicated Resolved Time CoV-Exposed Comment:Recent close contact documented in the Travel/Symptom Screening Form 04/04/2024 04/05/2024 04/15/2024 1:22 AM E DT documented as of this encounter Care Teams Superintendent [employer] Relationship Specialty Start Date End Date Dimas Fish MD [address] [place] [address] [address] [place] [address] PCP - General Internal Medicine 12/21/14 02/02/25 Linda Marquez PA [address] [place] [address] [address] [place] [address] PCP - General Physician Company Marker 02/03/25 documented as of this encounter Additional Source Comments The information contained in this document represents components of the legal health record. It is not the complete legal health record.[facility]
== END 2025-04-19 11:32 | disposition home or self-care (01) ==
LOC: HO.HMCH 10:35
PROVIDERS: PCP Internal Medicine
DX: Z00.00 Encounter for general adult medical examination without abnormal findings (principal); R06.09 Other forms of dyspnea; E66.811 Obesity, class 1; Z68.30 Body mass index [BMI] 30.0-30.9, adult; N31.9 Neuromuscular dysfunction of bladder, unspecified; F33.41 Major depressive disorder, recurrent, in partial remission; E78.2 Mixed hyperlipidemia; I10 Essential (primary) hypertension; K21.9 Gastro-esophageal reflux disease without esophagitis; I25.10 Atherosclerotic heart disease of native coronary artery without angina pectoris; M25.571 Pain in right ankle and joints of right foot; M54.9 Dorsalgia, unspecified

== ENCOUNTER → 2025-04-19 10:34 | Outpatient (REF) | payer MEDICARE, SELFPAY ==
--- NOTE | 2025-04-19 11:42 | ECG_ITS ---
Test Reason : dizziness giddiness Blood Pressure : */* mmHG Vent. Rate : 64 BPM Atrial Rate : 64 BPM P-R Int : 156 ms QRS Dur : 90 ms QT Int : 392 ms P-R-T Axes : 51 32 59 degrees QTcB Int : 404 ms Normal sinus rhythm with sinus arrhythmia Normal ECG When compared with ECG of 05-Nov-2021 08:30, No significant change was found Referred By: Linda Marquez Electronically Signed By: TRINA BARAJAS MD
== END ==
LOC: HO.CARD 10:34
PROVIDERS: PCP Internal Medicine
DX: Z00.00 Encounter for general adult medical examination without abnormal findings (principal); R42 Dizziness and giddiness; R35.0 Frequency of micturition; R06.09 Other forms of dyspnea; N31.9 Neuromuscular dysfunction of bladder, unspecified; F33.41 Major depressive disorder, recurrent, in partial remission; E78.2 Mixed hyperlipidemia; I10 Essential (primary) hypertension; K21.9 Gastro-esophageal reflux disease without esophagitis; I25.10 Atherosclerotic heart disease of native coronary artery without angina pectoris; M25.571 Pain in right ankle and joints of right foot; M54.50 Low back pain, unspecified; G89.29 Other chronic pain; E66.811 Obesity, class 1; Z68.30 Body mass index [BMI] 30.0-30.9, adult; Z79.899 Other long term (current) drug therapy; Z98.890 Other specified postprocedural states
CPT/HCPCS: 93005; 96127

== ENCOUNTER → 2025-04-19 11:42 | Outpatient (BNV) | payer MEDICARE, SELFPAY | PROVIDERS: PCP Internal Medicine; Visit Provider Internal Medicine Cardiovascular Disease | DX: R42 Dizziness and giddiness (principal) | CPT/HCPCS: 93010 ==

== ENCOUNTER 2025-04-27 11:40 | Outpatient (AMB) | payer MEDICARE, SELFPAY ==
--- NOTE | 2025-04-27 11:52 | MHC.OFFVIS ---
Intake Visit Reasons: 4m/US Intake Note: Patient is present for 4m Follow up/US Urology Medication:Tamsulosin Blood Thinner:none PVR:117ml Brickmason Helper Required: No Allergies diphenhydramine (From Benadryl) Allergy (Unknown, Verified 04/27/25 11:59) aggitated,itch,rash Medication List - Last Reconciled 04/27/25 by Puja Yan MD alprazolam 1 mg PO BID alprazolam 0.5 mg PO DAILY PRN amlodipine 10 mg PO DAILY atorvastatin 80 mg PO DAILY cholecalciferol (vitamin D3) 25 mcg PO DAILY duloxetine 60 mg PO DAILY lamotrigine 150 mg PO QAM losartan 100 mg PO DAILY metoprolol succinate ER 50 mg PO DAILY tamsulosin (Flomax) 0.4 mg PO DAILY HPI Comments Details: 04/27/25--Erwin is a 63-year-old male who presents today to the office for a follow-up. He is followed for voiding dysfunction, neurogenic bladder, incomplete bladder emptying. He has been prescribed tamsulosin b.i.d. . And he has been instructed on CIC management. He states that he has been doing well he catheterizes with the 16 Togolese catheter 3 times a day. He denies dysuria or gross hematuria. History of Present Illness - The patient is a 64-year-old male presenting with neurogenic bladder. - The patient self-catheterizes at home to manage the neurogenic bladder. - A renal ultrasound conducted on 03/30/25 showed kidneys within normal limits with no hydronephrosis. - Urinalysis performed today was within normal limits. - PSA screening on 01/27/25 was 0.56, which is within the normal range of 0 to 4. - The patient is considering reducing tamsulosin dosage from twice daily to once daily. Results - Renal ultrasound on 03/30/25: Kidneys within normal limits, no hydronephrosis. - Urinalysis: Within normal limits. - PSA on 01/27/25: 0.56, within normal range (0-4). Plan - Continue self-catheterization for neurogenic bladder management. - Consider reducing tamsulosin dosage to once daily, as discussed. - Follow-up in six months to reassess condition and medication efficacy. - Monitor for UTI symptoms and contact healthcare provider if symptoms such as hematuria occur. 12/29/24--Erwin is a 63-year-old male who presents today to the office for a follow-up. He is followed for voiding dysfunction, neurogenic bladder, incomplete bladder emptying. He has been prescribed tamsulosin b.i.d. . And he has been instructed on CIC management. He states that he has been doing well he catheterizes with the 16 Togolese catheter 3 times a day. He denies dysuria or gross hematuria. LV 09/29/24-- was treated for UTI.- Ecoli-pansensitive. 09/29/24--Erwin is a 63-year-old male who presents today to the office for a follow-up. He is followed for voiding dysfunction, neurogenic bladder, incomplete bladder emptying. He has been prescribed tamsulosin b.i.d., bethanechol, and Proscar. And he has been instructed on CIC management. He states that he has been doing well he catheterizes with the 16 Togolese catheter 3 times a day. He denies dysuria or gross hematuria. Urine nitrite positive. Will start abx. 01/21/2024- Erwin is a 63-year-old male who presents today to the office for a follow-up. He is followed for voiding dysfunction, neurogenic bladder, incomplete bladder emptying. He has been prescribed tamsulosin b.i.d., bethanechol, and Proscar. And he has been instructed on CIC management. He states that he has been doing well he catheterizes with the 16 Togolese catheter 3 times a day. He denies dysuria or gross hematuria. He states that the bethanechol is expensive and he does not feel that it has been helping. I discussed previously plan to discontinue Proscar on follow-up. Bahman is tolerating the tamsulosin. Plan discussed continue CIC 3 times a day. Discontinue bethanechol and Proscar. We will continue tamsulosin b.i.d.. Follow-up in 6 months. 09/24/23-- Here for FU. He is followed for voiding dysfunction and MISAEL. He was instructed on CIC and bethanochol, flomax and proscar have been prescribed. He is here post renal US. I have reviewed the results with him - Kidneys WNL, No hydronephrosis, bladder volume measured 172 mL, he did not void at time of testing. He complains that urine is cloudy with intermittent dysuria. Plan discussed augmentin 7 dy, stop prosdcsr on f/u Continue Flomax BID. Continue bethanechol 50 mg TID. cont CIC Erwin is a 62-year-old male who is being evaluated for voiding dysfunction. He has incomplete bladder emptying. 08/05/2023?Bladder scan PVR was > 442 mL. 07/20/2023 for urodynamics procedure. urodynamics performed on 07/20/2023 was consistent with neurogenic bladder. Cystoscopy on 05/18/23 which noted an trilobar enlargement of prostate. Labs: PSA - 11/05/21---0.31 Imaging: Renal US - limited - Kidneys WNL, no stones or hydronephrosis PFSH Medical History CAD (coronary artery disease) Depression Dementia Hyperlipidemia Hypertension Colon polyps Chronic GERD GERD (gastroesophageal reflux disease) Anxiety Depression High cholesterol Surgical History History of esophagogastroduodenoscopy (EGD) History of left knee surgery Hx of appendectomy Hx of colonoscopy Family History Father Past heart attack Mother Hypertension Other Mental health disorder Social History Housing: House Alcohol intake: current Alcohol intake frequency: 0-2 drinks per day Patient Tobacco Use Status: Never used Tobacco Tobacco use type: Cigarette e-Cigarette/Vaping Use: Never Used Second Hand Smoke Exposure: No Advance Directives Date on File: 07/09/20 service: No Current occupational status: retired Cognitive needs: No Hearing needs: No Vision needs: Yes (Glasses) Results AMB Urinalysis, Automated UA Leukoctes 0 Nichol/uL Last Edit by Carlotta Mars on 04/27/25 15:14 UA Nitrite Negative Last Edit by Carlotta Mars on 04/27/25 15:14 UA Urobilinogen 3.5 mg/dL Last Edit by Carlotta Mars on 04/27/25 15:14 UA Protein 1 mg/dL Last Edit by Carlotta Mars on 04/27/25 15:14 UA pH 6.0 Last Edit by Carlotta Mars on 04/27/25 15:14 UA Blood 0 Armaan/uL Last Edit by Carlotta Mars on 04/27/25 15:14 UA Specific [place] 1.020 Last Edit by Carlotta Mars on 04/27/25 15:14 UA Ketone Negative Last Edit by Carlotta Mars on 04/27/25 15:14 UA Bilirubin 0 mg/dL Last Edit by Carlotta Mars on 04/27/25 15:14 UA Glucose 0 mg/dL Last Edit by Carlotta Mars on 04/27/25 15:14 Results Reviewed Results Reviewed: Date of Service: 03/29/25 CLINICAL HISTORY: N31.9 - Neuromuscular dysfunction of bladder, unspecified US of kidneys Comparison: US/SR - US RETROPERITONEAL COMP - 09/10/23 10:09 EST Findings: Right kidney is normal in size, echogenicity and morphology, 11.4 cm in length. No calculus, mass or hydronephrosis. Left kidney is normal in size, echogenicity and morphology, 11.5 cm in length. No calculus, mass or hydronephrosis. Limited color Doppler demonstrates unremarkable bilateral blood flow. Impression: 1. Normal renal ultrasound. Collected: 09/29/24 Status: COMP Req#: [id number] Received: 09/29/24 Source: [facility] Sp Desc: Clean Cat Subm Dr: Puja Yan MD Ordered: Urine Culture Procedure Result Verified Urine Culture Final 10/02/24 Organism 1 Escherichia coli Quant > 100,000 cfu/mL E coli M.I.C. RX --------- --- Ampicillin <=2 S Cefazolin <=1 S Cefepime <=0.12 S Ceftriaxone <=0.25 S Ciprofloxacin <=0.06 S Gentamicin <=1 S Nitrofurantoin <=16 S Trimethoprim/Sulfamethoxazole <=20 S Date of Service: 09/10/23 EXAMINATION: US RETROPERITONEAL COMPLETE (RENAL) CLINICAL INFORMATION: Neuromuscular dysfunction of bladder, unspecified. Please measure prostate. COMPARISON: Renal ultrasound 04/24/2023. TECHNIQUE: Real-time imaging of the kidneys and bladder. FINDINGS: RIGHT KIDNEY: 9.8 x 6.3 x 5.5 cm (SAG x AP x TRV). The kidney is normal in size, contour, and echogenicity. Renal cortical thickness is normal. No calculi or focal parenchymal lesions. No hydronephrosis. LEFT KIDNEY: 11.2 x 6.3 x 5.5 cm (SAG x AP x TRV). The kidney is normal in size, contour, and echogenicity. Renal cortical thickness is normal. No calculi or focal parenchymal lesions. No hydronephrosis. BLADDER: Well distended and normal. Bilateral ureteral jets are demonstrated. Prevoid bladder volume is 172 mL. Postvoid bladder volume was not obtained. The patient was unable to void. The prostate measures 26 mL in volume. IMPRESSION: 1. Normal appearance of the kidneys. 2. Normal appearance of the bladder. 3. The patient was unable to void. 4. No significant enlargement of the prostate. Assessment & Plan Assessment & Plan Orders: Orders AMB Post Void Residual by ultrasound Today N13.8 - Other obstructive and reflux uropathy, N39.0 - Urinary tract infection, site not specified, N40.1 - Benign prostatic hyperplasia with lower urinary tract symptoms AMB Urinalysis Automated Today N31.9 - Neuromuscular dysfunction of bladder, unspecified, N39.0 - Urinary tract infection, site not specified Medications: Changed From tamsulosin (Flomax) 0.4 mg PO BID 180 caps 2RF To tamsulosin (Flomax) 0.4 mg PO DAILY 90 caps 3RF Coding
--- OUTSIDE RECORDS SUMMARY | 2025-04-27 12:16 | XMS_ITS | Encounter Summary ---
Author Organization [facility] Address [address] [place] [address] Phone Care Team Providers Care End Finder Twisting Department Name Role Phone Dimas Fish MD Primary Care Provider [phone] Linda Marquez Primary Care Provide r Encounter Details Date Type Department Care Team (Late Contact Info) Description 08/17/2023 Procedure Pass [facility], Ct Scan - [address] [address] Social History Tobacco Use Types Packs/Day Years [...] Department Care Team (Late Contact Info) Description 04/28/2025 2:00 PM EDT Office Visit [facility] [address] [place] [address] Reji Woodard PA-C [address] [place] [address] Waskish, Janice, PT [address] [place] [address] 05/03/2025 9:30 AM EDT Office Visit [address] [phone] Reji Woodard PA-C [address] [place] [address] [place] [address] Waskish Janice, PT [address] [place] [address] 05/30/2025 2:45 PM EDT Office Visit [address] [phone] Reji Woodard PA-C [address] [place] [address] [place] [address] Kari Marinelli, DIRECTOR RECREATION [address] [place] [address] 06/07/2025 2:45 PM EDT Office Visit [address] [phone] Reji Woodard PA-C [address] [place] [address] Kari Marinelli, DIRECTOR RECREATION [address] [place] [address] 06/21/2025 11:00 AM EDT Office Visit [address] [phone] Reji Woodard PA-C [address] [place] [address] [place] [address] Janice Thomas, PT [address] [place] [address] [email or web address] documented as of this encounter Visit Diagnoses Not on filedocumented in this encounter Additional Health Concerns Infection Onset Date Last Indicated Resolved Time CoV-Exposed Comment:Recent close contact documented in the Travel/Symptom Screening Form 04/04/2024 04/05/2024 04/15/2024 1:22 AM E DT documented as of this encounter Care Teams End Finder Twisting Department Relationship Specialty Start Date End Date Dimas Fish MD [address] [place] [address] Dr Avendaño [address] [place] [address] PCP - General Internal Medicine 12/21/14 02/02/25 Linda Marquez PA [address] [place] [address] Dr Avendaño [address] [place] [address] PCP - General Physician Solar Panel Technician 02/03/25 documented as of this encounter Additional Source Comments The information contained in this document represents components of the legal health record. It is not the complete legal health record.[facility]
--- OUTSIDE RECORDS SUMMARY | 2025-04-27 12:17 | XMS_ITS | Patient Health Record ---
Author Organization [facility] Address [address] [place] [address] Care Team Providers Care Armored Vehicle Officer Name Role Phone Linda Salmon Primary Care Provider Trino Aldridge Unavailable [phone] Allergies No Known Allergies Reason For Referral [...] Notes Problem Gastro-esophageal reflux disease without esophagitis (643185636) Gastro-esophageal reflux disease without esophagitis (K21.9) Active confirmed Problem [id number] Encounter for screening for malignant neoplasm of colon (Z12.11) Active confirmed Problem Benign neoplasm of colon (81368056) Colon polyps (K63.5) Active confirmed Problem 521707568 Gastroesophageal reflux disease, esophagitis presence not specified (K21.9) Active confirmed Problem Hiatal hernia (46316739) Hiatal hernia (K44.9) Active confirmed Problem 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 Problem Chronic gastritis (6976028) Chronic gastritis (K29.50) Active confirmed Problem Gama's esophagus (948223636) 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) Active confirmed Problem Gastroesophagitis (34255884) Gastro-esophageal reflux disease with esophagitis, without bleeding (K21.00) Active confirmed Plan Of Treatment Pending Test Test Name Order Date Esophageal Motility study 12/06/2020 24 HR pH PROBE 12/06/2020 Pathology 10/21/2023 Future Test Test Name Order Date UPPER GI ENDOSCOPY 04/24/2020 COLONOSCOPY 04/24/2020 UPPER GI ENDOSCOPY 08/17/2023 Next Appt Details Provider Name:Trino Holt , 08/15/2025 02:20:00 PM, [address], [address], [place], [address], Insurance Providers Payer Name Payer Address Payer Phone Subscriber Number Group Number Insured Name Patient Relationship to Insured Coverage Start Date Coverage End Date MED[place]ARE OF [place] [address] [place] [id number] [phone] [id number] HILDA MACDONALD Self - patient is the insured MEDEX ATTN CLAIMS [address] [place] [address] [id number] HILDA MACDONALD Self - patient is the insured Medical (General) History Medical History History ICD Code Hypertension Denies MD,DM,CVA,Lung disease,renal dise ase Depression and anxiety Elevated [...]
== END 2025-04-27 12:10 | disposition home or self-care (01) ==
LOC: HO.HUSH 11:41
PROVIDERS: PCP Internal Medicine; Visit Provider Urology
DX: N31.9 Neuromuscular dysfunction of bladder, unspecified (principal); N39.0 Urinary tract infection, site not specified

== ENCOUNTER → 2025-04-27 11:40 | Outpatient (BNVA) | payer MEDICARE, SELFPAY | PROVIDERS: PCP Internal Medicine; Visit Provider Urology | DX: N31.9 Neuromuscular dysfunction of bladder, unspecified (principal); R33.9 Retention of urine, unspecified; N39.0 Urinary tract infection, site not specified; N13.8 Other obstructive and reflux uropathy | CPT/HCPCS: 81003; 99212 ==

== ENCOUNTER → 2025-05-08 10:01 | Outpatient (REF) | payer MEDICARE, SELFPAY ==
--- NOTE | 2025-05-08 10:03 | HM_ITS ---
* Total monitoring time 3 days. * Underlying rhythm is sinus with an average rate of 73/Min. * Rare supraventricular ectopy. * Rare ventricular ectopy. * No significant pauses or high-grade AV blocks. * Shortness of breath in patient diary associated with sinus rhythm. MTDD
--- OUTSIDE RECORDS SUMMARY | 2025-05-08 10:53 | XMS_ITS | Encounter Summary ---
Author Organization [facility] Address [email or web address] [facility] [address] [place] [address] Phone Care Team Providers Care Induction Machine Operator Name Role Phone Dimas Fish MD Primary Care Provider [phone] Linda Marquez Primary Care Provide r Encounter Details Date Type Department Care Team (Late Contact Info) Description 08/17/2023 Procedure Pass [facility], Ct Scan - [address] [address] Social History Tobacco Use Types Packs/Day Years [...] Department Care Team (Late Contact Info) Description 05/30/2025 2:45 PM EDT Office Visit [facility] [address] [place] [address] Reji Woodard PA-C [address] [place] [address] Yves Kari Khan, [address] 06/07/2025 2:45 PM EDT Office Visit [address] [phone] Reji Woodard PA-C [address] [place] [address] [place] [address] YvesKari, [address] 06/21/2025 11:00 AM EDT Office Visit [address] [phone] Reji Woodard PA-C [address] [place] [address] [place] [address] Janice Thomas, PT [address] [place] [address] 06/28/2025 4:15 PM EDT Office Visit [address] [phone] Reji Woodard PA-C [address] [place] [address] [place] [address] Janice Thomas, PT [address] [place], [place] 07/12/2025 4:15 PM EDT Office Visit [address] [phone] Reji Woodard PA-C [address] [place] [address] [place] [address] Kari Marinelli LINER REROLL TENDER [address] [place] [address] 07/19/2025 11:45 AM EDT Office Visit [address] [address] Reji Woodard PA-C [address] [place] [address] [place] [address] Janice Thomas, PT [address] [place] [address] 07/26/2025 11:00 AM EST Office Visit [address] [address] Reji Woodard PA-C [address] [place] [address] [place] [address] Janice Thomas, PT [address] [place] [address] documented as of this encounter Visit Diagnoses Not on filedocumented in this encounter Additional Health Concerns Infection Onset Date Last Indicated Resolved Time CoV-Exposed Comment:Recent close contact documented in the Travel/Symptom Screening Form 04/04/2024 04/05/2024 04/15/2024 1:22 AM E DT documented as of this encounter Care Teams Induction Machine Operator Relationship Specialty Start Date End Date Dimas Fish MD [address] [place] [address] [place] [address] PCP - General Internal Medicine 12/21/14 02/02/25 Linda Marquez PA [address] [place] [address] Dr [place] [id number] PCP - General Physician Plate Former 02/03/25 documented as of this encounter Additional Source Comments The information contained in this document represents components of the legal health record. It is not the complete legal health record.[facility]
--- OUTSIDE RECORDS SUMMARY | 2025-05-08 10:53 | XMS_ITS | Patient Health Record ---
Author Organization [facility] Address [address] [place] [address] Care Team Providers Care Cargo Agent Name Role Phone Linda Salmon Primary Care Provider Trino Aldridge Unavailable [phone] Allergies No Known Allergies Reason For Referral [...] Notes Problem Gastro-esophageal reflux disease without esophagitis (260703598) Gastro-esophageal reflux disease without esophagitis (K21.9) Active confirmed Problem 266417438 Encounter for screening for malignant neoplasm of colon (Z12.11) Active confirmed Problem Benign neoplasm of colon (78384164) Colon polyps (K63.5) Active confirmed Problem 064722069 Gastroesophageal reflux disease, esophagitis presence not specified (K21.9) Active confirmed Problem Hiatal hernia (45179014) Hiatal hernia (K44.9) Active confirmed Problem Agma esophagus (976377896) 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 Problem Chronic gastritis (7303715) Chronic gastritis (K29.50) Active confirmed 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 Problem Gastroesophagitis (81521663) Gastro-esophageal reflux disease with esophagitis, without bleeding (K21.00) Active confirmed Plan Of Treatment Pending Test Test Name Order Date Esophageal Motility study 12/06/2020 24 HR pH PROBE 12/06/2020 Pathology 10/21/2023 Future Test Test Name Order Date UPPER GI ENDOSCOPY 04/24/2020 COLONOSCOPY 04/24/2020 UPPER GI ENDOSCOPY 08/17/2023 Next Appt Details Provider Name:Trino Holt , 08/15/2025 02:20:00 PM, [address], [address], [place], [address], Insurance Providers Payer Name Payer Address Payer Phone Subscriber Number Group Number Insured Name Patient Relationship to Insured Coverage Start Date Coverage End Date MEDICARE OF [place] [address] [place] [address] [phone] [id number] HILDA MACDONALD Self - patient is the insured MED[employer] ATTN CLAIMS [address] [place] [address] [id number] HILDA MACDONALD Self - patient is the insured Medical (General) History Medical History History ICD Code Hypertension Denies NM,DM,CVA,Lung disease,renal dise ase Depression and anxiety Elevated [...]
== END ==
LOC: HO.CARD 10:01
DX: R42 Dizziness and giddiness (principal); R06.09 Other forms of dyspnea
CPT/HCPCS: 93242

== ENCOUNTER → 2025-05-08 10:03 | Outpatient (BNV) | payer MEDICARE, SELFPAY | PROVIDERS: Visit Provider Internal Medicine | DX: I47.10 Supraventricular tachycardia, unspecified (principal); I49.3 Ventricular premature depolarization | CPT/HCPCS: 93244 ==

== ENCOUNTER 2025-05-17 11:21 | Outpatient (AMB) | payer MEDICARE, SELFPAY ==
[2025-05-17 11:34] VITALS: BP 122/77; PULSE 68; O2SAT 93; BMI 30.6
--- NOTE | 2025-05-17 11:34 | MHC.OFFVIS ---
Vital Signs 05/17/25 11:34 Height 5 ft 8 in Weight 201 lb BMI 30.6 BP 122/77 Blood Pressure Location Rt brachial Position Sitting Pulse 68 Pulse Source Pulse Oximeter Pulse Oximetry (%) 93 Oxygen Delivery Method Room Air Intake Visit Reasons: hypoxia Allergies diphenhydramine (From Benadryl) Allergy (Unknown, Verified 05/17/25 11:38) aggitated,itch,rash HPI HPI hypoxia: Details: 64-year-old gentleman minimal smoker in his college years, with no prior personal family history of lung disease referred for evaluation intermittent episodes of hypoxia that patient noted with his personal oximeter. He has has essentially negative pulmonary workup. After the last office visit patient said that he had several episodes with tachycardia associated with dizziness and he is currently undergoing Holter monitoring. [facility] Medical History CAD (coronary artery disease) Depression Dementia Hyperlipidemia Hypertension Colon polyps Chronic GERD GERD (gastroesophageal reflux disease) Anxiety Depression High cholesterol Surgical History History of esophagogastroduodenoscopy (EGD) History of left knee surgery Hx of appendectomy Hx of colonoscopy Family History Father Past heart attack Mother Hypertension Other Mental health disorder Social History Housing: House Alcohol intake: current Alcohol intake frequency: 0-2 drinks per day Patient Tobacco Use Status: Never used Tobacco Tobacco use type: Cigarette e-Cigarette/Vaping Use: Never Used Second Hand Smoke Exposure: No Advance Directives Date on File: 07/09/20 service: No Current occupational status: retired Cognitive needs: No Hearing needs: No Vision needs: Yes (Glasses) Review of Systems Const Denies daytime sleepiness, Denies excessive sweating, Denies fatigue, Denies fever(s), Denies lethargy, Denies malaise, Denies night sweats, Denies snoring and Denies weight loss Eyes Denies blurry vision and Denies itchy eyes ENT Denies nasal congestion, Denies post nasal drip, Denies sinus pain, Denies sinus pressure and Denies other ( Thrush) Card Denies chest pain, Denies pedal edema, Denies dyspnea, Denies orthopnea and Denies paroxysmal nocturnal dyspnea Resp Denies cough, Denies hemoptysis, Denies excessive phlegm production, Denies dyspnea, Denies snoring and Denies wheezing GI Denies abdominal pain and Denies heartburn Musc Denies myalgias, Denies arthralgias and Denies joint swelling Skin/Breast Denies rash Neuro Denies memory loss and Denies seizure-like activity Psych Denies abnormal sleep pattern, Denies anxiety and Denies memory loss Endo Denies excessive sweating, Denies fatigue and Denies heat intolerance Heath/Lymph Denies easy bruising Aller/Immun Denies itchy eyes, Denies seasonal rhinorrhea and Denies wheezing Physical Exam Vital Signs: Last Vital Signs Pulse 68 05/17/25 11:34 BP 122/77 05/17/25 11:34 Pulse Ox 93 05/17/25 11:34 Oxygen Delivery Method Room Air 05/17/25 11:34 BMI result Body Mass Index 30.6 Const General: no acute distress and alert Nutritional Appearance: not obese Orientation/consciousness: Other orientation findings ( oriented) HEENT Head: Yes atraumatic Eyes General: appearance normal, both eyes and all related structures Sclerae: sclerae normal EOM: EOMs intact bilaterally Neck Neck: Yes supple Lymphatic: no lymphadenopathy noted Resp Effort & Inspection: normal respiratory effort and no use of accessory muscles Auscultation: clear to auscultation bilaterally Cardio Rate: regular rate Rhythm: regular rhythm Heart sounds: no gallops, no murmurs and no rubs Skin General skin exam: other ( warm) Extrem General: No clubbing, No cyanosis and No edema Assessment & Plan Assessment & Plan (1) Dyspnea: Code(s): R06.00 - Dyspnea, unspecified Category: Medical Plan: At this time of unclear etiology. Essentially with normal pulmonary workup. Appears to be associated with tachycardia and dizziness, patient is currently undergoing Holter monitoring. Coding Level of Care Code Est Pt Level 3 (39040) Diagnoses Dyspnea R06.00
--- OUTSIDE RECORDS SUMMARY | 2025-05-17 12:13 | XMS_ITS | Encounter Summary ---
Author Organization [facility] Address [address] [facility] [address] [place] [address] Phone Care Team Providers Care Host/Hostess Head Name Role Phone Dimas Fish MD Primary Care Provider [phone] Linda Marquez Primary Care Provide r Encounter Details Date Type Department Care Team (Late Contact Info) Description 08/17/2023 Procedure Pass [facility], Ct Scan - [address] [address] Social History Tobacco Use Types Packs/Day Years [...] Description 05/30/2025 2:45 PM EDT Office Visit [facility] 4 [place] [address] Reji Woodard PA-C [address] [place] [address] Yves Kari Khan, [address] 06/07/2025 2:45 PM EDT Office Visit [address] [phone] Reji Woodard PA-C [address] [place] [address] [place] [address] YvesKari, [address] 06/21/2025 11:00 AM EDT Office Visit [address] [phone] Reji Woodard PA-C [address] [place] [address] [place] [address] Janice Thomas, PT [address] [place] [address] 06/28/2025 4:15 PM EDT Office Visit [address] [phone] Reji Woodard PA-C [address] [place] [address] [place] [address] Janice Thomas, PT [address] [place], [place] 07/12/2025 4:15 PM EDT Office Visit [address] [phone] Reji Woodard PA-C [address] [place] [address] [place] [address] Kari Marinelli FOOD PROCESSING SCIENTIST [address] [place] [address] 07/19/2025 11:45 AM EDT Office Visit [address] [address] Reji Woodard PA-C [address] [place] [address] [place] [address] Janice Thomas, PT [address] [place] [address] 07/26/2025 11:00 AM EST Office Visit [address] [address] Reji Woodard PA-C [address] [place] [address] [place] [address] Janice Thomas, PT [address] [place] [address] documented as of this encounter Visit Diagnoses Not on filedocumented in this encounter Additional Health Concerns Infection Onset Date Last Indicated Resolved Time CoV-Exposed Comment:Recent close contact documented in the Travel/Symptom Screening Form 04/04/2024 04/05/2024 04/15/2024 1:22 AM E DT documented as of this encounter Care Teams Host/Hostess Head Relationship Specialty Start Date End Date Dimas Fish MD [address] [place] [address] [place] [address] PCP - General Internal Medicine 12/21/14 02/02/25 Linda Marquez PA [address] [place] [address] Dr [place] [id number] PCP - General Physician Water Analyst 02/03/25 documented as of this encounter Additional Source Comments The information contained in this document represents components of the legal health record. It is not the complete legal health record.[facility]
--- OUTSIDE RECORDS SUMMARY | 2025-05-17 12:13 | XMS_ITS | Encounter Summary ---
Author Organization [facility] Address [address] [place] [address] Phone Care Team Providers Care Mortar Worker Name Role Phone Dimas Fish MD Primary Care Provider [phone] Linda Marquez Primary Care Provide r Encounter Details Date Type Department Care Team (Late st Contact Info) Description 04/05/2024 Transcribe Orders [facility] Specimen Processing [address] [place] [address] Dimas Fish MD [address] [place] [address] Dr Aleman [place], [place] [phone] Social History Tobacco Use Types Packs/Day Years [...] with a working camera? Not on file Intimate Partner Violence Answer Date R ecorded Are you denied basic needs s uch as food, clothing, or medical care? No 04/05/2024 In the past 12 months have y ou been in a relationship with a person who hurts, threatens, or tries to control you? No 04/05/2024 Are you denied basic needs s uch as food, clothing, or medical care? No 04/05/2024 In the past 12 months have y ou been in a relationship with a person who hurts, threatens, or tries to control you? No 04/05/2024 Sex and Gender Information Value Date Recorded Sex Assigned at Not on file Legal Sex Male 9:20 AM EDT Gender Identity Not on file Sexual Orientation Not on file documented as of this encounter Functional Status * Calculated C-SSRS Risk Score (Lifetime/Recent) Answer Date of Assessment Author No Risk Indicated 04/05/2024 11:59 AM EDT Lorena Hernandez RN * [place] Suicide Severity Rating Scale (Screener/Recent Self-Report) Question Answer Date of Assessment Author 1. Wish to be (Past 1 Month) No 04/05/2024 11:59 AM EDT Lorena Hernandez ea, RN 2. Non-Specific Active Suici natalia Thoughts (Past 1 Month) No 04/05/2024 11:59 AM EDT Lorena Hernandez RN 6. Suicidal Behavior (Lifetime) No 11:59 AM EDT Lorena Hernandez RN documented as of this encounter Plan of Treatment Upcoming Encounters Date Type Department Care Team (Late st Contact Info) Description 05/30/2025 2:45 PM EDT Office Visit [address] [address] Reji Woodard PA-C [address] [place] [address] [place] [address] Kari Marinelli, SOCIAL WORK JOB TITLES [address] [place] [address] 06/07/2025 2:45 PM EDT Office Visit [address] [address] Reji Woodard PA-C [address] [place] [address] [place] [address] Caitjory Kari Khan, SOCIAL WORK JOB TITLES [address] [place] [address] 06/21/2025 11:00 AM EDT Office Visit [address] [address] Reji Woodard PA-C [address] [place] [address] Janice Thomas, PT 4 [place] [address] 06/28/2025 4:15 PM EDT Office Visit [address] [address] Reji Woodard PA-C [address] [place] [address] [place] [address] Janice Thomas, PT 4 [place] [address] 07/12/2025 4:15 PM EDT Office Visit [address] [address] Reji Woodard PA-C [address] [place] [address] [place] [address] Antionemariangeljory Kari Bill, SOCIAL WORK JOB TITLES [address] [place] [address] 07/19/2025 11:45 AM EDT Office Visit [address] [address] Reji Woodard PA-C [address] [place] [address] [place] [address] Janice Thomas, PT 4 [place] [address] 07/26/2025 11:00 AM EST Office Visit [facility] 4 [place] [address] Reji Woodard PA-C [address] [place] [address] [place] [address] Janice Thomas, PT 4 [place] [address] [email or web address] documented as of this encounter Visit Diagnoses Not on filedocumented in this encounter Additional Health Concerns Infection Onset Date Last Indicated Resolved Time CoV-Exposed Comment:Recent close contact documented in the Travel/Symptom Screening Form 04/04/2024 04/05/2024 04/15/2024 1:22 AM E DT documented as of this encounter Care Teams Mortar Worker Relationship Specialty Start Date End Date Dimas Fish MD [address] [place] [address] Dr Avendaño [address] [place] [address] PCP - General Internal Medicine 12/21/14 02/02/25 Linda Marquez PA [address] [place] [address] Dr Avendaño [address] [place] [address] PCP - General Physician Ward Clerk 02/03/25 documented as of this encounter Additional Source Comments The information contained in this document represents components of the legal health record. It is not the complete legal health record.[facility]
--- OUTSIDE RECORDS SUMMARY | 2025-05-17 12:13 | XMS_ITS | Encounter Summary ---
Author Organization [facility] Address [address] [facility] [address] [place] [address] Phone Care Team Providers Care Wool Fleece Sorter Name Role Phone Dimas Fish MD Primary Care Provider [phone] Linda Marquez Primary Care Provide r Encounter Details Date Type Department Care Team (Late st Contact Info) Description 10/19/2020 Procedure Pass [facility], Ct Scan - [facility] [address] [place] [address] Social History Tobacco Use Types Packs/Day Years Used Date Smoking Tobacco: Never Smokeless Tobacco: Never Alcohol Use Standard Drinks/Week Comments Yes 2 (1 standard drink = 0.6 oz pur e alcohol) Sex and Gender Information Value Date Recorded Sex Assigned at Not on file Legal Sex Male 9:20 AM EDT Gender Identity Not on file Sexual Orientation Not on file documented as of this encounter Functional Status * Calculated C-SSRS Risk Score (Lifetime/Recent) Answer Date of Assessment Author No Risk Indicated 10/19/2020 6:24 PM Elana Bush RN * [place] Suicide Severity Rating Scale (Screener/Recent Self-Report) Question Answer Date of Assessment Author 1. Wish to be (Past 1 Month) No 10/19/2020 6:24 PM Elana Bush RN 2. Non-Specific Active Suici natalia Thoughts (Past 1 Month) No 10/19/2020 6:24 PM Sofi Bush RN 6. Suicidal Behavior (Lifetime) No 6:24 PM Elana Bush RN documented as of this encounter Plan of Treatment Upcoming Encounters Date Type Department Care Team (Late st Contact Info) Description 05/30/2025 2:45 PM EDT Office Visit [address] [address] Reji Woodard PA-C [address] [place] [address] Kari Marinelli ARMATURE CONNECTOR [address] [place] [address] 06/07/2025 2:45 PM EDT Office Visit [address] [address] Reji Woodard PA-C [address] [place] [address] Dr. [place] Kari Marinelli ARMATURE CONNECTOR [address] [place] [address] 06/21/2025 11:00 AM EDT Office Visit [address] [address] Reji Woodard PA-C [address] [place] [address] Dr. [place] Janice Thomas, PT [address] [place] [address] 06/28/2025 4:15 PM EDT Office Visit [address] [address] Reji Woodard PA-C [address] [place] [address] Dr. [place] Janice Thomas, PT [address] [place] [address] 07/12/2025 4:15 PM EDT Office Visit [address] [address] Reji Woodard PA-C [address] [place] [address] [place] [address] Antionemamta Kari Khan, ARMATURE CONNECTOR [address] [place] [address] 07/19/2025 11:45 AM EDT Office Visit [address] [address] Reji Woodard PA-C [address] [place] [address] [place] [address] Janice Thomas, PT [address] [place] [address] 07/26/2025 11:00 AM EST Office Visit [address] [address] Reji Woodard PA-C [address] [place] [address] [place] [address] Janice Thomas, PT [address] [place] [address] documented as of this encounter Visit Diagnoses Not on filedocumented in this encounter Additional Health Concerns Infection Onset Date Last Indicated Resolved Time CoV-Exposed Comment:Recent close contact documented in the Travel/Symptom Screening Form 04/04/2024 04/05/2024 04/15/2024 1:22 AM E DT documented as of this encounter Care Teams Wool Fleece Sorter Relationship Specialty Start Date End Date Dimas Fish MD [address] [place] [address] [place] [address] PCP - General Internal Medicine 12/21/14 02/02/25 Linda Marquez PA [address] [facility] [address] [place] [address] PCP - General Physician No Bake Molder 02/03/25 documented as of this encounter Additional Source Comments The information contained in this document represents components of the legal health record. It is not the complete legal health record.[facility]
--- OUTSIDE RECORDS SUMMARY | 2025-05-17 12:13 | XMS_ITS | Encounter Summary ---
Author Organization [facility] Address [address] [employer] [facility] [address] [place] [address] Phone Care Team Providers Care Blind Installer Name Role Phone Dimas Fish MD Primary Care Provider [phone] Linda Marquez Primary Care Provide r Encounter Details Date Type Department Care Team (Late st Contact Info) Description 10/19/2020 Procedure Pass [facility], Ct Scan - [facility] 30 [place] [address] Social History Tobacco Use Types Packs/Day Years [...] 10/19/2020 6:24 PM Elana Bush RN * [place] Suicide Severity Rating Scale (Screener/Recent Self-Report) Question [...] Description 05/30/2025 2:45 PM EDT Office Visit [address] [address] Reji Woodard PA-C [address] [place] [address] [email or web address] Kari Marinelli SCALE MECHANIC [address] [place] [address] [email or web address] 06/07/2025 2:45 PM EDT Office Visit [address] [address] Reji Woodard PA-C [address] [place] [address] Dr. [place] [email or web address] Kari Marinelli SCALE MECHANIC [address] [place] [address] [email or web address] 06/21/2025 11:00 AM EDT Office Visit [address] [address] Reji Woodard PA-C [address] [place] [address] Dr. [place] [email or web address] Janice Thomas, PT [address] [place] [address] [email or web address] 06/28/2025 4:15 PM EDT Office Visit [address] [address] Reji Woodard PA-C [address] [place] [address] Dr. [place]is[place] [email or web address] Janice Thomas, PT [address] [place] [address] [email or web address] 07/12/2025 4:15 PM EDT Office Visit [address] [address] Reji Woodard PA-C [address] [place] [address] [place] [address] Antionemamta Kari Khan, SCALE MECHANIC [address] [place] [address] 07/19/2025 11:45 AM EDT Office Visit [address] [address] Reji Woodard PA-C [address] [place] [address] [place] [address] Janice Thomas, PT [address] [place] [address] [email or web address] 07/26/2025 11:00 AM EST Office Visit [address] [address] Reji Woodard PA-C [address] [place] [address] [place] [address] Janice Thomas, PT [address] [place] [address] documented as of this encounter Visit Diagnoses Not on filedocumented in this encounter Additional Health Concerns Infection Onset Date Last Indicated Resolved Time CoV-Exposed Comment:Recent close contact documented in the Travel/Symptom Screening Form 04/04/2024 04/05/2024 04/15/2024 1:22 AM E DT documented as of this encounter Care Teams Blind Installer Relationship Specialty Start Date End Date Dimas Fish MD [address] [place] [address] [place] [address] PCP - General Internal Medicine 12/21/14 02/02/25 Linda Marquez PA [address] [facility] Dr Avendaño [place] [address] PCP - General Physician Cad Drafter 02/03/25 documented as of this encounter Additional Source Comments The information contained in this document represents components of the legal health record. It is not the complete legal health record.[facility]
--- OUTSIDE RECORDS SUMMARY | 2025-05-17 12:13 | XMS_ITS | Patient Health Record ---
Author Organization [facility] Address [address] [place] [address] Care Team Providers Care Bridge Operator Name Role Phone Linda Salmon Primary Care Provider Trino Aldridge Unavailable [phone] Allergies No Known Allergies Reason For Referral [...] Notes Problem Gastro-esophageal reflux disease without esophagitis (139470161) Gastro-esophageal reflux disease without esophagitis (K21.9) Active confirmed Problem 898362515 Encounter for screening for malignant neoplasm of colon (Z12.11) Active confirmed Problem Benign neoplasm of colon (47402526) Colon polyps (K63.5) Active confirmed Problem [id number] Gastroesophageal reflux disease, esophagitis presence not specified (K21.9) Active confirmed Problem Hiatal hernia (60377237) Hiatal hernia (K44.9) Active confirmed Problem 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 Problem Chronic gastritis (2806228) Chronic gastritis (K29.50) Active confirmed 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 Problem Gastroesophagitis (68945380) Gastro-esophageal reflux disease with esophagitis, without bleeding (K21.00) Active confirmed Plan Of Treatment Pending Test Test Name Order Date Esophageal Motility study 12/06/2020 24 HR pH PROBE 12/06/2020 Pathology 10/21/2023 Future Test Test Name Order Date UPPER GI ENDOSCOPY 04/24/2020 COLONOSCOPY 04/24/2020 UPPER GI ENDOSCOPY 08/17/2023 Next Appt Details Provider Name:Trino Holt , 08/15/2025 02:20:00 PM, [address], [address], [place], [address], Insurance Providers Payer Name Payer Address Payer Phone Subscriber Number Group Number Insured Name Patient Relationship to Insured Coverage Start Date Coverage End Date MEDICARE OF [place] [address] [place] [address] [id number] HILDA MACDONALD Self - patient is the insured [employer] ATT[employer] CLAIMS [address] [place] [address] [id number] HILDA MACDONALD Self - patient is the insured Medical (General) History Medical History History ICD Code Hypertension Denies DE,DM,CVA,Lung disease,renal dise ase Depression and anxiety Elevated [...]
--- OUTSIDE RECORDS SUMMARY | 2025-05-17 12:13 | XMS_ITS | Clinical Summary ---
Author Organization [facility] Address [address] [facility] [address] [place] [address] Phone Care Team Providers Care General Supervisor Name Role Phone Linda Marquez Primary Care Provide r Allergies Active Allergy Reactions Criticality Noted Date Comments Diphenhydramine Hcl Feeling Irritable Low 3 Hydrochlorothiazide Myalgia 04/15/2023 Medications ALPRAZolam (XANAX) 0.5 MG tablet Take 0.5 mg by mouth. 1 06/16/2019 Active amLODIPine (NORVASC) 10 MG tablet Take 10 mg by mouth daily. 2 05/09/2019 Active atorvastatin (LIPITOR) 80 MG tablet Take 80 mg by mouth daily. 2 05/16/2019 Active DULoxetine (CYMBALTA) 60 MG capsule TAKE 1 CAPSULE BY MOUTH EVERY DAY IN THE MORNING 1 06/20/2019 Active losartan (COZAAR) 100 MG tablet Take 100 mg by mouth daily. 5 05/08/2019 Active metoprolol tartrate (LOPRESSOR) 25 MG tablet TAKE 1 TABLET BY MOUTH EVERY DAY WITH FOOD 1 04/17/2019 Active OXcarbazepine (TRILEPTAL) 300 MG tablet TAKE 1 IN AM AND 2 AT BEDTIME 1 05/13/2019 Active omeprazole (PRILOSEC) 20 MG capsule Take 20 mg by mouth daily. Active albuterol 90 mcg/actuation inhaler Inhale 2 puffs into the lungs every 6 (six) hours as needed for wheezing. 8.5 g 11/23/2021 Active tamsulosin (FLOMAX) 0.4 mg Cap Take 1 capsule by mouth every morning. 04/10/2023 Active lamoTRIgine (LAMICTAL) 25 MG IMMEDIATE release tablet Take 2 tablets by mouth 2 (two) times a day. 03/03/2023 Active lamoTRIgine (LAMICTAL) 150 MG IMMEDIATE release tablet Take 150 mg by mouth every morning. 03/20/2023 Active gabapentin (NEURONTIN) 100 MG capsule Take 100 mg by mouth 3 (three) times a day. 03/28/2023 Active cholecalciferol (VITAMIN D3) 2,000 unit tablet Take 1 tablet by mouth every morning. 01/30/2023 Active busPIRone (BUSPAR) 15 MG tablet Take 1 tablet by mouth 2 (two) times a day. 08/23/2024 Active Active Problems Problem Noted Date Diagnosed Date Alzheimer's disease 04/15/2023 04/15/2023 Anemia 04/15/2023 04/15/2023 Gama's esophagus 04/15/2023 04/15/2023 Benign prostatic hyperplasia 04/15/2023 Depressive disorder 04/15/2023 04/15/2023 Gastroesophageal reflux disease with esophagitis 04/15/2023 04/15/2023 Hiatal hernia 04/15/2023 04/15/2023 Hyperlipidemia 04/15/2023 04/15/2023 Hypertension 04/15/2023 04/15/2023 Iron deficiency 04/15/2023 04/15/2023 Obsessive-compulsive disorder 04/15/2023 Vitamin D deficiency 04/15/2023 04/15/2023 Encounters Date Type Department Care Team Description 05/03/2025 9:30 AM EDT Office Visit [facility] [address] [place] [address] Reji Woodard PA-C Eldridge, Kayla, PT Sprain of right ankle, unspecified ligament, initial encounter (Primary Dx) 04/28/2025 2:00 PM EDT Office Visit [address] [address] Reji Woodard PA-C Eldridge, Kayla, PT Sprain of right ankle, unspecified ligament, initial encounter (Primary Dx) 04/26/2025 2:15 PM EDT Office Visit [address] [address] Reji Woodard PA-C Eldridge, Kayla, PT Sprain of right ankle, unspecified ligament, initial encounter (Primary Dx) 04/21/2025 2:00 PM EDT Office Visit [address] [address] Reji Woodard PA-C Eldridge, Kayla, PT Sprain of right ankle, unspecified ligament, initial encounter (Primary Dx) 04/19/2025 2:00 PM EDT Office Visit [address] [address] Reji Woodard PA-C Gawron, Carol A, AIRLINE STEWARDESS Sprain of right ankle, unspecified ligament, initial encounter (Primary Dx) 04/14/2025 2:00 PM EDT Office Visit [address] [address] Reji Woodard PA-C Gawron, Carol A, AIRLINE STEWARDESS Sprain of right ankle, unspecified ligament, initial encounter (Primary Dx) 04/12/2025 2:15 PM EDT Office Visit [address] [address] Reji Woodard PA-C Eldridge, Kayla, PT Sprain of right ankle, unspecified ligament, initial encounter (Primary Dx) 04/07/2025 2:00 PM EDT Office Visit [address] [address] Reji Woodard PA-C Gawron, Carol A, AIRLINE STEWARDESS Sprain of right ankle, unspecified ligament, initial encounter (Primary Dx) 04/05/2025 2:15 PM EDT Office Visit [address] [address] Reji Woodard PA-C Eldridge, Kayla, PT Sprain of right ankle, unspecified ligament, initial encounter (Primary Dx) 03/31/2025 2:00 PM EDT Office Visit [address] [place] [address] Reji Woodard PA-C Eldridge, Kayla, PT Sprain of right ankle, unspecified ligament, initial encounter (Primary Dx) 03/31/2025 Plan of Care Documentation [address] [address] 03/29/2025 2:15 PM EDT Office Visit [facility] [address] [place] [address] Reji Woodard PA-C Eldridge, Kayla, PT Sprain of right ankle, unspecified ligament, initial encounter (Primary Dx) from Last 3 Months Immunizations Immunization Administration Dates Next Due COVID-19 (Pre-07/13) Pfizer Vaccine, mRNA, PF ,12/13/2020 Social History Tobacco Use Types Packs/Day Years Used Date Smoking Tobacco: Never Smokeless Tobacco: Never Tobacco Cessation:Counseling Given: Not Answered Alcohol Use Standard Drinks/Week Comments Yes 2 [...] on file Sexual Orientation Not on file Last Filed Vital Signs Vital Sign Reading Time Taken Comments Blood Pressure 107/72 11/26/2024 9:36 AM EST Pulse 69 11/26/2024 9:36 AM EST Temperature 36.5 C (97.7 F) 11/26/2024 9:36 AM EST Respiratory Rate 20 11/26/2024 9:36 AM EST Oxygen Saturation 97% 11/26/2024 9:36 AM EST Inhaled Oxygen Concentration - - Weight 88.5 kg (195 lb) 11/26/2024 9:36 AM EST Height 172.7 cm (5' 8 ) 11/26/2024 9:36 AM EST Body Mass Index 29.65 11/26/2024 9:36 AM EST Plan of Treatment Upcoming Encounters Date Type Department Care Team (Late st Contact Info) Description 05/30/2025 2:45 PM EDT Office Visit [address] [address] Reji Woodard PA-C [address] [place] [address] [place] [address] Kari Marinelli PTA [address] [place] [address] 06/07/2025 2:45 PM EDT Office Visit [address] [address] Reji Woodard PA-C [address] [place] [address] [place] [address] Kari Marinelli PTA [address] [place] [address] 06/21/2025 11:00 AM EDT Office Visit [address] [address] Reji Woodard PA-C [address] [place] [address] [place] [address] Janice Thomas, PT [address] [place] [address] 06/28/2025 4:15 PM EDT Office Visit [address] [address] Reji Woodard PA-C [address] [place] [address] Janice Thomas, PT 4 [place] [address] 07/12/2025 4:15 PM EDT Office Visit [address] [address] Reji Woodard PA-C [address] [place] [address] [place] [address] Kari Marinelli, AIRLINE STEWARDESS [address] [place] [address] 07/19/2025 11:45 AM EDT Office Visit [address] [address] Reji Woodard PA-C [address] [place] [address] [place] [address] Janice Thomas, PT [address] [place] [address] 07/26/2025 11:00 AM EST Office Visit [address] [id number] Reji Woodard PA-C [address] [place] [address] [place] [address] Janice Thomas, PT [address] [place] [address] [email or web address] Health Maintenance Due Date Last Done Comments LIPID PANEL 1959 DEPRESSION SCREENING 1971 HEPATITIS C SCREENING 1977 HIV ONE-TIME SCREENING (18-65 YEARS) 1977 COLOGUARD 2004 COLONOSCOPY 2004 COLORECTAL CANCER SCREENING 2004 FIT TEST 2004 FOBT 2004 SIGMOIDOSCOPY 2004 VIRTUAL COLONOSCOPY 2004 PNEUMOCOCCAL VACCINES (50+ years) (1 of 1 - PCV) 2009 ZOSTER VACCINES (1 of 2) 2009 COVID-19 VACCINE ( - 2023- season) 2025 07/20/2024, 08/07/2023, 04/16/2022, Additional history exists CREATININE LEVEL 04/05/2025 04/05/2024, , 08/16/2023, Additional history exists POTASSIUM LEVEL 04/05/2025 04/05/2024, 04/2 09/2023, 08/16/2023, Additional history exists BLOOD PRESSURE 05/29/2025 11/26/2024 SCREENING FOR DIABETES 04/05/2027 04/05/2024 Adult Td,Tdap Booster 02/13/2028 02/12/2018, 014 RSV VACCINE (1 - 1-dose 75+ series) 2034 SMOKING STATUS SCREENING (Once After 26 Yrs) Completed 11/26/2024 HEPATITIS A VACCINES Aged Out No long er eligible based on patient's age to complete this topic HIB VACCINES Aged Out No longer eligi ble based on patient's age to complete this topic MENINGOCOCCAL VACCINES (ACWY) Aged Out No longer eligible based on patient's age to complete this topic MENINGOCOCCAL VACCINES (B) Aged Out N o longer eligible based on patient's age to complete this topic Medical Devices Not on file Procedures Procedure Name Priority Date/Time Associated Diagnosis Comments AMB REFERRAL TO [facility] PHYSICAL THERAPY Routine 03/31/2025 10:00 AM EDT Sprain of anterior talofibular ligament of right ankle, initial encounter BASIC METABOLIC PANEL STAT 04/05/2024 11:35 AM EDT from Last 3 Months or Most Recently Relevant to Health Maintenance Results * Ambulatory referral to [facility] Physical Therapy (03/31/2025 10:00 AM EDT) Other us Reji Woodard PA-C AMB [facility] REFERRALS Final Res ult * (ABNORMAL) Basic metabolic panel (04/05/2024 11:35 AM EDT) SODIUM 138 133 - 146 mmol/L [facility] CHLORIDE 101 96 - 108 mmol/L [facility] POTASSIUM 4.1 3.3 - 5.1 mmol/L [facility] CO2 23 21 - 35 mmol/L [facility] BUN 29(H) 6 - 19 mg/dL [facility] CREATININE 1.80(H) 0.5 - 1.5 mg/dL [facility] GLUCOSE 109(H) 70 - 99 mg/dL [facility] CALCIUM 9.0 8.4 - 10.3 mg/dL [facility] EGFR 42(L) >59 mL/min/1.7 3m2 [facility] Comment:Estimated glomerular filtration rate calculated using the CKD-EPI refit equation. ANION GAP 18 10 - 20 mmol/L [facility] Blood 04/05/2024 11:3 5 AM EDT 04/05/2024 11:39 AM EDT us Irasema Esquivel PA-C LAB BLOOD ORDERABLES Final Result [address] [address] from Last 3 Months or Most Recently Relevant to Health Maintenance Insurance MEDICARE PART A & B Copybar MEDEX SUPPLEMENT MEDICARE PART A & B Copybar MEDEX SUPPLEMENT MEDICARE PART A & B Copybar MEDEX SUPPLEMENT MEDICARE PART A & B Copybar MEDEX SUPPLEMENT MEDICARE PART A & B Gift Card Combo SUPPLEMENT MEDICARE PART A & B Gift Card Combo SUPPLEMENT MEDICARE PART A & B Copybar MEDEX SUPPLEMENT MEDICARE PART A & B Copybar MEDEX SUPPLEMENT MEDICARE PART A & B Copybar MEDEX SUPPLEMENT SAFETY INSURANCE MEDICARE PART A & B [employer] CROSS MEDEX SUPPLEMENT Care Teams General Supervisor Relationship Specialty Start Date End Date Linda Marquez PA [address] [place] [address] [place] [address] PCP - General Physician Intelligence Operations 02/03/25 Additional Source Comments The information contained in this document represents components of the legal health record. It is not the complete legal health record.[facility]
--- OUTSIDE RECORDS SUMMARY | 2025-05-17 12:13 | XMS_ITS | Encounter Summary ---
Author Organization [facility] Address [address] [place] [phone] Phone Care Team Providers Care Rug Hooker Hand Name Role Phone Dimas Fish MD Primary Care Provider [phone] Linda Marquez Primary Care Provide r Encounter Details Date Type Department Care Team (Late st Contact Info) Description 12/28/2020 Procedure Pass [facility], Ct Scan - [facility] [address] [place] [address] Social History Tobacco Use Types Packs/Day Years [...] Date of Assessment Author No Risk Indicated 12/28/2020 7:35 PM EDT Magali Lopez, VAHID * [place] Suicide Severity Rating Scale (Screener/Recent Self-Report) Question Answer Date of Assessment Author 1. Wish to be (Past 1 Month) No 021 7:35 PM EDT Magali Lopez, RN 2. Non-Specific Active Suici natalia Thoughts (Past 1 Month) No 12/28/2020 7:35 PM EDT Cristóbal Lopez, VAHID 6. Suicidal Behavior (Lifetime) No 7:35 PM EDT Magali Lopez RN documented as of this encounter Plan of Treatment Upcoming Encounters Date Type Department Care Team (Late st Contact Info) Description 05/30/2025 2:45 PM EDT Office Visit [address] [address] Reji Woodard PA-C [address] [place] [address] [place] [address] Kari Marinelli, MANUFACTURING ENGINEER CHIEF [address] [place] [address] 06/07/2025 2:45 PM EDT Office Visit [address] [address] Reji Woodard PA-C [address] [place] [address] [place] [address] Kari Marinelli, MANUFACTURING ENGINEER CHIEF [address] [place] [address] 06/21/2025 11:00 AM EDT Office Visit [address] [address] Reji Woodard PA-C [address] [place] [address] [place] [address] Janice Thomas, PT [address] [place] [address] 06/28/2025 4:15 PM EDT Office Visit [address] [address] Reji Woodard PA-C [address] [place] [address] [place] [address] Janice Thomas, PT [address] [place], [place] 07/12/2025 4:15 PM EDT Office Visit [address] [address] Rjei Woodard PA-C [address] [place] [address] [place] [address] Kari Marinelli, MANUFACTURING ENGINEER CHIEF [address] [place] [address] 07/19/2025 11:45 AM EDT Office Visit [address] [address] Reji Woodard PA-C [address] [place] [address] [place] [address] Janice Thomas, PT [address] [place] [address] 07/26/2025 11:00 AM EST Office Visit [address] [address] Reji Woodard PA-C [address] [place] [address] [place] [address] Janice Thomas, PT [address] [place] [address] documented as of this encounter Visit Diagnoses Not on filedocumented in this encounter Additional Health Concerns Infection Onset Date Last Indicated Resolved Time CoV-Exposed Comment:Recent close contact documented in the Travel/Symptom Screening Form 04/04/2024 04/05/2024 04/15/2024 1:22 AM E DT documented as of this encounter Care Teams Rug Hooker Hand Relationship Specialty Start Date End Date Dimas Fish MD [address] [place] [address] [place] [address] PCP - General Internal Medicine 12/21/14 02/02/25 Linda Marquez PA [address] [place] [address] [place] [address] PCP - General Physician Certified Paralegal 02/03/25 documented as of this encounter Additional Source Comments The information contained in this document represents components of the legal health record. It is not the complete legal health record.[facility]
== END 2025-05-17 11:50 | disposition home or self-care (01) ==
LOC: HO.HPS 11:21
PROVIDERS: Visit Provider Internal Medicine Pulmonary Disease
DX: R06.00 Dyspnea, unspecified (principal)
CPT/HCPCS: 99213

== ENCOUNTER → 2025-05-17 11:21 | Outpatient (BNVA) | payer MEDICARE, SELFPAY | PROVIDERS: Visit Provider Internal Medicine Pulmonary Disease | DX: R09.02 Hypoxemia (principal) | CPT/HCPCS: 99212 ==

== ENCOUNTER 2025-07-25 11:01 | Outpatient (AMB) | payer MEDICARE, SELFPAY ==
--- NOTE | 2025-07-25 11:26 | MHC.OFFVIS ---
Vital Signs 07/25/25 11:28 07/25/25 11:28 BP 116/82 Blood Pressure Location Lt brachial Position Sitting Pulse 65 Pulse Source Palpation Intake Visit Reasons: 1 YR FU Resource Coordinator Required: No Allergies diphenhydramine (From Benadryl) Allergy (Unknown, Verified 05/17/25 11:38) aggitated,itch,rash Medication List - Last Reconciled 07/25/25 by Angella Escalona, LOUISE alprazolam 1 mg PO BID alprazolam 0.5 mg PO DAILY PRN amlodipine 10 mg PO DAILY atorvastatin 80 mg PO DAILY cholecalciferol (vitamin D3) 25 mcg PO DAILY duloxetine 60 mg PO DAILY lamotrigine 150 mg PO QAM losartan 100 mg PO DAILY metoprolol succinate ER 50 mg PO DAILY tamsulosin (Flomax) 0.4 mg PO DAILY HPI Comments Details: Bahman is a 65-year-old male patient with a past medical history of hypertension and hyperlipidemia who follows in the clinic for Alzheimer's dementia. He was last seen approximately 1 year ago. According to office notes, he was a behavioral therapist by profession. Overall he is doing well with some support from his family. He is advised to continue with antidepressant and antianxiety medication and to remain socially and physically active. He tells me today that overall, he has seen some minor changes since his last visit but overall he has been doing relatively well. He has a dog who keeps him active. He walks her for approximately 20 minutes 3 times a day on average. He is currently living with 1 of his daughters and also frequently sees his other tender whom he does not live with. He does not seem any other family members regularly though does see others for holidays. He is still driving but drives only rarely. His daughter whom he lives with primarily drives for him. He has in the past gotten lost and somewhat disoriented while driving. He remains independent in bathing and grooming and can prepare simple meals for himself such as sandwiches. He however does not cook meals. He drinks 2 glasses of wine on most nights but does not smoke tobacco or use any other illicit substances. He does have some concerns about some episodes of ?amnesia? that he feels has been becoming more frequent. He has a somewhat noted a feeling of dissociation or gaps in time lasting possibly sec. This tends to happen more in the evening hours. He otherwise denies any abnormal movements, tongue biting during sleep, urinary incontinence during sleep, or significant staring episodes noticed by family. He denies any changes to his gait or falls and denies any changes to bladder or bowel habits. [facility] Medical History CAD (coronary artery disease) Depression Dementia Hyperlipidemia Hypertension Colon polyps Chronic GERD GERD (gastroesophageal reflux disease) Anxiety Depression High cholesterol Surgical History History of esophagogastroduodenoscopy (EGD) History of left knee surgery Hx of appendectomy Hx of colonoscopy Family History Father Past heart attack Mother Hypertension Other Mental health disorder Social History Housing: House Alcohol intake: current Alcohol intake frequency: 0-2 drinks per day Patient Tobacco Use Status: Never used Tobacco Tobacco use type: Cigarette e-Cigarette/Vaping Use: Never Used Second Hand Smoke Exposure: No Advance Directives Date on File: 07/09/20 service: No Current occupational status: retired Cognitive needs: No Hearing needs: No Vision needs: Yes (Glasses) Review of Systems Const All systems reviewed & are unremarkable except as noted in HPI and below Physical Exam Vital Signs: Last Vital Signs Pulse 65 07/25/25 11:28 BP 116/82 07/25/25 11:28 Const General: cooperative, healthy appearing, comfortable and no acute distress Nutritional Appearance: well nourished Orientation/consciousness: patient oriented x3 Limitations: no limitations HEENT Head: Yes normal to inspection and Yes normocephalic Eyes General: appearance normal, both eyes and all related structures Visual Poole: normal visual poole by confrontation Alignment and Position: alignment normal Periorbital: periorbital findings normal Eyelids: Yes eyelids normal Conjunctivae: conjunctivae normal Sclerae: sclerae normal Neuro General: patient oriented x3, tone normal and deep tendon reflexes 2+ bilaterally Cranial nerves: Yes CN's II-XII intact bilaterally and Yes Facial sensation intact/muscles of mastication intact Cognition (Neuro): normal cognition Gait exam (Neuro): Normal gait present Motor exam (neuro): 5/5 motor strength present throughout and no tremor noted Sensory Exam: double simultaneous stimulation for sensation normal Romberg Test: Negative Pupils: Normal pupillary reactivity/response: bilateral Psych Appearance: grossly normal Mental Status: mental status grossly normal Speech and movement: Normal speech and movement present and Clear speech present Affect: Blunted affect present Attitude: cooperative Thought process: Normal thought process present Thought content: Normal thought content present Insight: Good insight present (Psych) Judgement: Good judgement present (Psych) Assessment & Plan Assessment & Plan (1) Amnesia: Code(s): R41.3 - Other amnesia Category: Medical Plan Bahman is a 65-year-old male patient with a past medical history of hypertension and hyperlipidemia who follows in the clinic for Alzheimer's dementia. His memory, moods, and physical functioning seem relatively stable with perhaps some minor decline noticed over the course of the last year. He does take medication for mood support and has help with functional activities at home. His primary concern today is discussion of some episodic moments of disassociation. EEG in the past (November 2014) was okay. He has not had any since. We will proceed with a routine EEG and follow up after the EEG. At time of EEG follow up we can perform a Eucl[place] score and discuss whether or not he would like to proceed with any other forms of treatment such as Kisunla if he is a candidate for this. We could consider further workup including an updated brain MRI, TSH and B12 study if indicated and if desired by the patient. -EEG -Follow-up in 6 weeks for EEG review and MOCA score Orders: Orders EEG Routine 07/25/25 R41.3 - Other amnesia Coding Level of Care Code Est Pt Level 4 (71334) Diagnoses Amnesia R41.3
[2025-07-25 11:28] VITALS: BP 116/82; PULSE 65
== END 2025-07-25 11:51 | disposition home or self-care (01) ==
LOC: HO.HSM 11:01
PROVIDERS: Referring Provider Internal Medicine; Visit Provider Nurse Practitioner
DX: R41.3 Other amnesia (principal)
CPT/HCPCS: 99214

== ENCOUNTER → 2025-07-25 11:01 | Outpatient (BNVA) | payer MEDICARE, SELFPAY | PROVIDERS: Referring Provider Internal Medicine; Visit Provider Nurse Practitioner | DX: G30.9 Alzheimer's disease, unspecified (principal); R41.3 Other amnesia | CPT/HCPCS: 99212 ==

== ENCOUNTER 2025-08-21 08:24 | Outpatient (REF) | payer MEDICARE, SELFPAY ==
--- OUTSIDE RECORDS SUMMARY | 2025-08-15 09:20 | XMS_ITS ---
Author Organization [facility] Address [address] [place] [id number] Care Team Providers Care Long Term Acute Care Registered Nurse Name Role Phone Linda Salmon Primary Care Provider Trino Aldridge Unavailable [phone] Allergies No Known Allergies REASON FOR VISIT Patient presents today for recall colonoscopy Medications Medication SIG (Take, Route, Frequency, Duration) Notes Start Date End Date Status amLODIPine Besylate 10 MG Tablet TAKE 1 TABLET BY MOUTH EVERY DAY Oral; Duration: 90 Active lamoTRIgine ER 25 MG Tablet Extended Release 24 Hour 1 tablet Orally; Duration: 30 day(s) Active ALPRAZolam 1 MG Tablet (Schedule IV Drug ) TAKE 1 TABLET BY MOUTH EVERY MORNING AND 1/2 TABLET IN THE EVENING Oral; Duration: 30 Active Tamsulosin HCl 0.4 MG Capsule 1 capsule Orally Once a day Active Metoprolol Tartrate 25 MG Tablet TAKE 1 TABLET BY MOUTH EVERY DAY WITH FOOD Oral; Duration: 90 Active Cymbalta Active Losartan Potassium 50 MG Tablet TAKE 2 TABLETS BY MOUTH EVERY DAY Oral; Duration: 90 Active Lipitor Active Social History Tobacco Use: Social History Observation Description Date Details (start date - stop date) Never Smoker NA - NA Social History Drugs/Alcohol: Social Info Question Answer Notes Alcohol Screen Did you have a drink containing alcohol in the past year? Yes How often did you have a drink containing alcohol in the past year? 4 or more times a week (4 points) How many drinks did you have on a typical day when you were drinking in the past year? 1 or 2 drinks (0 point) How often did you have 6 or more drinks on one occasion in the past year? Never (0 point) Points 4 Interpretation Positive Drug/Alcohol: Social Info Question Answer Notes AUDIT-C (Standard) Did you have a drink containing alcohol in the past year? Yes How often did you have a drink containing alcohol in the past year? Daily or almost daily (4 points) How many drinks did you have on a typical day when you were drinking in the past year? 1 or 2 drinks (0 point) How often did you have six or more drinks on one occasion in the past year? Never (0 point) Points 4 Interpretation Positive Tobacco Use: Social Info Question Answer Notes Tobacco Use/Smoking Patient is a nonsmoker Additional Details Category Social Info Options Details Miscellaneous: Marital status: Occupation: Retired Caffeine: 1-2 cups per day Section Notes: Nonsmoker; 1-2 glasses of re d wine a few times a week Problems Problem Type SNOMED Code ICD Code Onset Dates Problem Status W/U Status Risk Notes Problem History of adenomatous polyp of colon (889242237) History of adenomatous polyp of colon (Z86.0101) Active confirmed Vital Signs Blood pressure systolic 001 mm Hg 08/15/20 25 Blood pressure diastolic 01 mm Hg 025 Height 68 in 08/15/2025 Weight 212.4 lbs 08/15/2025 BMI 32.29 kg/m2 08/15/2025 Procedures Procedure Date Ordered Date Performed Result Body Sit e COLONOSCOPY 08/15/2025 N/A Encounters Encounter Location Date Provider Diagnosis [facility] [address] [place] [address] 08/15/2025 Trino Holt Gastroesophageal ref lux disease, esophagitis presence not specified K21.9 ; Encounter for screening for malignant neoplasm of colon Z12.11 ; 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 His previous history of reflux remains very stable since his hiatal hernia surgery in 2020. We did review the endoscopy results from 2023. At this time he does not need any medication for acid suppression given no active reflux symptoms off all acid suppression. I would recommend a repeat upper endoscopy in 2026 or 2028 given the previous finding of Gama's esophagus, although given just the minimal findings originally and the negative findings last year I certainly do not think he is at any significant increased risk of esophageal cancer. I did recommend a follow-up colonoscopy for further screening given the history of a tubular adenoma removed over 5 years ago. We did review the rationale for this in regard to colon cancer prevention. Full consent has been obtained for this, including risks of bleeding and perforation. The procedure will be done with monitored anesthesia care. He was given the below instructions regarding adjustment of his medication for the procedure. Hilda was comfortable with this plan. Thank you again for allowing me to participate in Hilda's care. I shall continue to keep you advised of his progress. 08/15/2025 Encounter for screening for malignant neoplasm of colon (ICD-10 - Z12.11) Overall, Hilda appears quite well. His previous history of reflux remains very stable since his hiatal hernia surgery in 2020. We did review the endoscopy results from 2023. At this time he does not need any medication for acid suppression given no active reflux symptoms off all acid suppression. I would recommend a repeat upper endoscopy in 2026 or 2027 given the previous finding of Gama's esophagus, although given just the minimal findings originally and the negative findings last year I certainly do not think he is at any significant increased risk of esophageal cancer. I did recommend a follow-up colonoscopy for further screening given the history of a tubular adenoma removed over 5 years ago. We did review the rationale for this in regard to colon cancer prevention. Full consent has been obtained for this, including risks of bleeding and perforation. The procedure will be done with monitored anesthesia care. He was given the below instructions regarding adjustment of his medication for the procedure. Hilda was comfortable with this plan. Thank you again for allowing me to participate in Hilda's care. I shall continue to keep you advised of his progress. 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 His previous history of reflux remains very stable since his hiatal hernia surgery in 2020. We did review the endoscopy results from 2023. At this time he does not need any medication for acid suppression given no active reflux symptoms off all acid suppression. I would recommend a repeat upper endoscopy in 2026 or 2027 given the previous finding of Gama's esophagus, although given just the minimal findings originally and the negative findings last year I certainly do not think he is at any significant increased risk of esophageal cancer. I did recommend a follow-up colonoscopy for further screening given the history of a tubular adenoma removed over 5 years ago. We did review the rationale for this in regard to colon cancer prevention. Full consent has been obtained for this, including risks of bleeding and perforation. The procedure will be done with monitored anesthesia care. He was given the below instructions regarding adjustment of his medication for the procedure. Hilda was comfortable with this plan. Thank you again for allowing me to participate in Hilda's care. I shall continue to keep you advised of his progress. 08/15/2025 Colon polyps (ICD-10 - K63.5) Overall, Hilda appears quite well. His previous history of reflux remains very stable since his hiatal hernia surgery in 2020. We did review the endoscopy results from 2023. At this time he does not need any medication for acid suppression given no active reflux symptoms off all acid suppression. I would recommend a repeat upper endoscopy in 2026 or 2027 given the previous finding of Gama's esophagus, although given just the minimal findings originally and the negative findings last year I certainly do not think he is at any significant increased risk of esophageal cancer. I did recommend a follow-up colonoscopy for further screening given the history of a tubular adenoma removed over 5 years ago. We did review the rationale for this in regard to colon cancer prevention. Full consent has been obtained for this, including risks of bleeding and perforation. The procedure will be done with monitored anesthesia care. He was given the below instructions regarding adjustment of his medication for the procedure. Hilda was comfortable with this plan. Thank you again for allowing me to participate in Hilda's care. I shall continue to keep you advised of his progress. 08/15/2025 History of adenomatous polyp of colon (ICD-10 - Z86.0101) Overall, Hilda appears quite well. His previous history of reflux remains very stable since his hiatal hernia surgery in 2020. We did review the endoscopy results from 2023. At this time he does not need any medication for acid suppression given no active reflux symptoms off all acid suppression. I would recommend a repeat upper endoscopy in 2026 or 2027 given the previous finding of Gama's esophagus, although given just the minimal findings originally and the negative findings last year I certainly do not think he is at any significant increased risk of esophageal cancer. I did recommend a follow-up colonoscopy for further screening given the history of a tubular adenoma removed over 5 years ago. We did review the rationale for this in regard to colon cancer prevention. Full consent has been obtained for this, including risks of bleeding and perforation. The procedure will be done with monitored anesthesia care. He was given the below instructions regarding adjustment of his medication for the procedure. Hilda was comfortable with this plan. Thank you again for allowing me to participate in Hilda's care. I shall continue to keep you advised of his progress. Plan Of Treatment Pending Test Test Name Order Date Colonoscopy 08/15/2025 COLONOSCOPY 08/15/2025 Next Appt Details Provider Name:Trino Hotl , 10/25/2025 08:30:00 AM, [address] [place] [address] , [place], [place], [phone], History and Physical Notes * HPI (History of Present Illness) Category Sub-Category Detail Notes Category Not es incontinence I saw Hilda in follow-up today in regard to his history of Gastrosoft reflux with an associated tiny area of Gama's esophagus, as well as his history of a tubular adenoma of the colon and discussion of colorectal cancer screening. I last saw Hilda in September 2023, at which time he underwent a follow-up upper endoscopy which revealed no esophagitis and no gross evidence of Gama's esophagus. Biopsies did not reveal any intestinal metaplasia/Gama's esophagus. There is only a minimal hiatal hernia and his previous fundoplication was still intact. He continues not to need any medication for reflux symptoms. His previous hiatal hernia surgery has continued to work very well for him. He denies any anorexia, early satiety, dysphagia, significant heartburn, nausea, nor vomiting. He denies abdominal pain, jaundice, nor unintentional weight loss. His bowel movements are been regular and without any signs of bleeding. He denies any known family history of colorectal cancer.His colonoscopy in June 2020 had revealed a small tubular adenoma that was removed. He did have a subsequent Cologuard test after that which was negative. Laboratories in the early part of this year revealed normal chemistries, BUN 24, creatinine 1.2, normal LFTs, and a normal CBC. Progress Notes * HILDA MACDONALDDOB:1960 (65 yo M)Acc No.[id number]:08/15/2025 Progress Notes Patient: HILDA JENNINGS Provider: Dominguez Holt MD :1960 A ge:65 Y S ex:Male Date:08/15/2025 Address:[address] [place], [place] [id number] Pcp:KIMI Schroeder Subjective: * Chief Complaints: * P atient presents today for recall colonoscopy * HPI: i ncontinence: I saw Hilda in follow-up today in regard to his history of Gastrosoft reflux with an associated tiny area of Gama's esophagus, as well as his history of a tubular adenoma of the colon and discussion of colorectal cancer screening. I last saw Hilda in September 2023, at which time he underwent a follow-up upper endoscopy which revealed no esophagitis and no gross evidence of Gama's esophagus. Biopsies did not reveal any intestinal metaplasia/Gama's esophagus. There is only a minimal hiatal hernia and his previous fundoplication was still intact. He continues not to need any medication for reflux symptoms. His previous hiatal hernia surgery has continued to work very well for him. He denies any anorexia, early satiety, dysphagia, significant heartburn, nausea, nor vomiting. He denies abdominal pain, jaundice, nor unintentional weight loss. His bowel movements are been regular and without any signs of bleeding. He denies any known family history of colorectal cancer.His colonoscopy in June 2020 had revealed a small tubular adenoma that was removed. He did have a subsequent Cologuard test after that which was negative. Laboratories in the early part of this year revealed normal chemistries, BUN 24, creatinine 1.2, normal LFTs, and a normal CBC. 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 pylori- he did have hiatal hernia surgery in February [address] Simms with excellent clinical improvement Upper endoscopy in September 2023 revealed no sign of esophagitis nor any gross evidence of Gama's mucosa and biopsies from the gastroesophageal junction were negative for any sign of Gama's esophagus/intestinal metaplasia. There was no esophagitis or any significant hiatal hernia seen. His previous fundoplication appeared intact Followed by urology for what sounds like a neurogenic bladder. He has to self catheterize at least 3-4 times a day. Medical History Verified * Surgical History: Appendectomy 1997 Knee surgery-left 2010 Fundoplication surgery for GERD with Dr. Simms 2020 Surgical History verified. * Hospitalization/Major Diagno stic Procedure: No Hospitalization Documented. Hospitalization Verified. * Family History: F ather: , heart attack/ colitis/ diverticulitis, diagnosed with HTN (hypertension), Heart disease. M other: . F amily History Verified.. no known hx of colon cancer, no liver cancer in family. * Social History: T obacco Use: T obacco Use/Smoking P atient is a n onsmoker. D rugs/Alcohol: A lcohol Screen D id you have a drink containing alcohol in the past year? Y es, H ow often did you have a drink containing alcohol in the past year? 4 or more times a week (4 points), H ow many drinks did you have on a typical day when you were drinking in the past year??1 or 2 drinks (0 point), H ow often did you have 6 or more drinks on one occasion in the past year? N ever (0 point), P oints 4 , I nterpretation P ositive. M iscellaneous: C affeine: 1-2 cups per day. Marital status: . Occupation: Retired. D rug/Alcohol: A DANIEL-C (Standard) D id you have a drink containing alcohol in the past year? Y es,?How often did you have a drink containing alcohol in the past year? D aily or almost daily (4 points), H ow many drinks did you have on a typical day when you were drinking in the past year? 1 or 2 drinks (0 point), H ow often did you have six or more drinks on one occasion in the past year? N ever (0 point), P oints 4 , I nterpretation P ositive. Social History Verified. N onsmoker; 1-2 glasses of red wine a few times a week. * Medications: T akingTamsulosin HCl 0.4 MG Capsule 1 capsule Orally Once a day lamoTRIgine ER 25 MG Tablet Extended Release 24 Hour 1 tablet Orally ALPRAZolam 1 MG Tablet (Schedule IV Drug) TAKE 1 TABLET BY MOUTH EVERY MORNING AND 1/2 TABLET IN THE EVENING Oral Losartan Potassium 50 MG Tablet TAKE 2 TABLETS BY MOUTH EVERY DAY Oral Lipitor Cymbalta amLODIPine Besylate 10 MG Tablet TAKE 1 TABLET BY MOUTH EVERY DAY Oral Metoprolol Tartrate 25 MG Tablet TAKE 1 TABLET BY MOUTH EVERY DAY WITH FOOD Oral Medication List reviewed and reconciled with the patientTaking Tamsulosin HCl 0.4 MG Capsule 1 capsule Orally Once a day Taking lamoTRIgine ER 25 MG Tablet Extended Release 24 Hour 1 tablet Orally Taking ALPRAZolam 1 MG Tablet (Schedule IV Drug) TAKE 1 TABLET BY MOUTH EVERY MORNING AND 1/2 TABLET IN THE EVENING Oral Taking Losartan Potassium 50 MG Tablet TAKE 2 TABLETS BY MOUTH EVERY DAY Oral Taking Lipitor Taking Cymbalta Taking amLODIPine Besylate 10 MG Tablet TAKE 1 TABLET BY MOUTH EVERY DAY Oral Taking Metoprolol Tartrate 25 MG Tablet TAKE 1 TABLET BY MOUTH EVERY DAY WITH FOOD Oral Medication List reviewed and reconciled with the patient * Allergies: N .K.D.AAndersyesAllergies Verified. Objective: * Vitals: W t:212.4lbs, Ht: 68 in, BMI:32.29Index, BP:001/01mm Hg, Ht-cm: 172.72 cm, Wt-k.34 kg. Assessment: * Assessment: 1. G astroesophageal reflux disease, esophagitis presence not specified - K21.9 (Primary) ? 2 . E ncounter for screening for malignant neoplasm of colon - Z12.11 ?3. B arrett esophagus - K22.70 4 . C olon polyps - K63.5 5 . H istory of adenomatous polyp of colon - Z86.0101 Overall, Hilda appears quite well. His previous history of reflux remains very stable since his hiatal hernia surgery in 2020. We did review the endoscopy results from 2023. At this time he does not need any medication for acid suppression given no active reflux symptoms off all acid suppression. I would recommend a repeat upper endoscopy in 2026 or 2027 given the previous finding of Gama's esophagus, although given just the minimal findings originally and the negative findings last year I certainly do not think he is at any significant increased risk of esophageal cancer. I did recommend a follow-up colonoscopy for further screening given the history of a tubular adenoma removed over 5 years ago. We did review the rationale for this in regard to colon cancer prevention. Full consent has been obtained for this, including risks of bleeding and perforation. The procedure will be done with monitored anesthesia care. He was given the below instructions regarding adjustment of his medication for the procedure. Hilda was comfortable with this plan. Thank you again for allowing me to participate in Hilda's care. I shall continue to keep you advised of his progress. Plan: * Treatment: * ?Procedure: COLONOSCOPY* With MAC.Do not use aspirin for 3 days before the colonoscopy 2.?Colon polyps?Imaging: Colonoscopy* With MAC. Do not take aspiri n for 3 days before the colonoscopy. * ?Procedure: COLONOSCOPY* With MAC.Do not use aspirin for 3 days before the colonoscopy 3.?History of adenomatous polyp of colon?Procedure: COLONOSCOPY* With MAC.Do not use aspirin for 3 days before the colonoscopy * Procedure Codes: 4 5378 DIAGNOSTIC COLONOSCOPY * Preventive Medicine: Counseling: C are goal follow-up plan: A yoly Normal BMI Follow-up D ietary management education, guidance, and counseling, B MN management provided Y es. Screenings: F all Risk Screening F all Risk Assessment: N o falls in the past year, S creening: N o falls in the past year, A ssessment: N ot performed, no reason specified, P balbir of Care: N ot documented, no reason specified. Billing Information: * Procedure Codes: 07866 DIAGNOSTIC COLONOSCOPY. * The named appointment provid er may or may not be the originator of this progress note, and it is not deemed complete until electronically signed by the appointment provider. Sign off status: Pending * Provider: Dominguez Holt MD Date: 10/15/2024 Generated for Carol bowers/Darrian/Breonnaitting on: 10/22/2024 08:39 AM EST
--- OUTSIDE RECORDS SUMMARY | 2025-08-21 08:38 | XMS_ITS | Encounter Summary ---
Author Organization [facility] Address [address] [facility] [address] [place] [address] Phone Care Team Providers Care Liability Claims Adjuster Name Role Phone Dimas Fish MD Primary Care Provider [phone] Linda Marquez Primary Care Provide r Encounter Details Date Type Department Care Team (Late st Contact Info) Description 10/19/2020 Procedure Pass [facility], Ct Scan - [facility] [address] [place] [address] Social History Tobacco Use Types Packs/Day Years [...] 10/19/2020 6:24 PM Elana Bush RN * Shannon Suicide Severity Rating Scale (Screener/Recent Self-Report) Question Answer Date of Assessment Author 1. Wish to be (Past 1 Month) No 10/19/2020 6:24 PM Elana Bush RN 2. Non-Specific Active Suici natalia Thoughts (Past 1 Month) No 10/19/2020 6:24 PM EST O'Ruben, Sofi yazmin M, RN 6. Suicidal Behavior (Lifetime) No 1 6:24 PM Elana Bush RN documented as of this encounter Plan of Treatment Not on file documented as of this encounter Visit Diagnoses Not on filedocumented in this encounter Additional Health Concerns Infection Onset Date Last Indicated Resolved Time CoV-Exposed Comment:Recent close contact documented in the Travel/Symptom Screening Form 04/04/2024 04/05/2024 04/15/2024 1:22 AM E DT documented as of this encounter Care Teams Liability Claims Adjuster Relationship Specialty Start Date End Date Dimas Fish MD [address] [place] [address] [address] [place] [id number] PCP - General Internal Medicine 12/21/14 02/02/25 Linda Marquez PA [address] [place] [address] [address] [place] [id number] PCP - General Physician Field Health Officer 02/03/25 documented as of this encounter Additional Source Comments The information contained in this document represents components of the legal health record. It is not the complete legal health record.[facility]
--- OUTSIDE RECORDS SUMMARY | 2025-08-21 08:38 | XMS_ITS | Patient Health Record ---
Author Organization [facility] Address [address] [place] [address] Care Team Providers Care Office Support Assistant Name Role Phone Linda Salmon Primary Care Provider Trino Aldridge Unavailable [phone] Allergies No Known Allergies Reason For Referral No Information Medications Medication SIG (Take, Route, Frequency, Duration) Notes Start Date End Date Status Cymbalta Active amLODIPine Besylate 10 MG Tablet TAKE 1 TABLET BY MOUTH EVERY DAY Oral; Duration: 90 Active Losartan Potassium 50 MG Tablet TAKE 2 TABLETS BY MOUTH EVERY DAY Oral; Duration: 90 Active Lipitor Active lamoTRIgine ER 25 MG Tablet Extended [...] DAY WITH FOOD Oral; Duration: 90 Active Immunizations Vaccine Route Administration Date Status Comme nts Influenza Unknown 05/22/2019 Administered Influenza Unknown 05/22/2020 Administered Influenza Unknown 08/07/2021 Administered Influenza Unknown 07/29/2023 Administered Influenza Unknown 08/15/2024 Administered Social History Tobacco Use: Social History Observation Description Date Details (start date - stop date) Never Smoker NA - NA Social History Drug/Alcohol: Social Info Question Answer Notes AUDIT-C [...] Notes Problem Gastro-esophageal reflux disease without esophagitis (816240262) Gastro-esophageal reflux disease without esophagitis (K21.9) Active confirmed Problem Screening for malignant neoplasm of colon (381349504) Encounter for screening for malignant neoplasm of colon (Z12.11) Active confirmed Problem Polyp of colon (disorder) (46497228) Colon polyps (K63.5) Active confirmed Problem Gastroesophageal reflux disease (836574932) Gastroesophageal reflux disease, esophagitis presence not specified (K21.9) Active confirmed Problem Hiatal hernia (17106170) Hiatal hernia (K44.9) Active confirmed Problem Gama esophagus (517935412) 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 Problem Chronic gastritis (6315870) Chronic gastritis (K29.50) Active confirmed Problem Gama's esophagus (103571023) 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) Active confirmed Problem Gastroesophageal reflux disease with esophagitis (disorder) (573388887) Gastro-esophageal reflux disease with esophagitis, without bleeding (K21.00) Active confirmed Problem History of adenomatous polyp of colon (770360499) History of adenomatous polyp of colon (Z86.0101) Active confirmed Vital Signs Blood pressure diastolic 01 mm Hg 08/15/2025 Height 68 in 08/15/2025 Blood pressure systolic 001 mm Hg 08/15/2025 Weight 212.4 lbs 08/15/2025 BMI 32.29 kg/m2 08/15/2025 Procedures Procedure Date Ordered Date Performed Result Body Sit e COLONOSCOPY 08/15/2025 N/A Encounters Encounter Location Date Provider Diagnosis [facility] [address] [place] [address] 08/15/2025 Trino Holt Gastroesophageal ref lux disease, esophagitis presence not specified K21.9 ; Encounter for screening for malignant neoplasm of colon Z12.11 ; Gama esophagus K22.70 ; Colon polyps K63.5 and History of adenomatous polyp of colon Z86.0101 Assessments Encounter Date Diagnosis (ICD Code) Assessment Notes Treatment Notes Treatment Clinical Notes Section Notes 08/15/2025 Encounter for screening for malignant neoplasm [...] keep you advised of his progress. 08/15/2025 Gastroesophageal reflux disease, esophagitis presence not [...] Test Test Name Order Date Colonoscopy 08/15/2025 Esophageal Motility study 12/06/2020 COLONOSCOPY 08/15/2025 24 HR pH PROBE 12/06/2020 Future Test Test Name Order Date UPPER GI ENDOSCOPY 04/24/2020 COLONOSCOPY 04/24/2020 UPPER GI ENDOSCOPY 08/17/2023 Next Appt Details Provider Name:Trino Holt , 10/25/2025 08:30:00 AM, [address] [place] [address] , [place], [place], [id number], Insurance Providers Payer Name Payer Address Payer Phone Subscriber Number Group Number Insured Name Patient Relationship to Insured Coverage Start Date Coverage End Date MEDICARE OF [place] [address] [place] [address] [id number] HILDA MACDONALD Self - patient is the insured MEDEX ATTN CLAIMS [address] [place] [address] [id number] HILDA MACDONALD Self - patient is the insured Medical (General) History Medical History History ICD Code Hypertension Denies SC,DM,CVA,Lung disease,renal dise ase Depression and anxiety Elevated Cholesterol Negative colonoscopy in 11/2009 Screening Colonoscopy 0- one small tubular adenoma; there was a [...] excellent clinical improvement Upper endoscopy in September 22 revealed no sign of esophagitis nor any gross evidence of Gama's mucosa and biopsies from the gastroesophageal junction were negative for any sign of Gama's esophagus/intestinal metaplasia. There was no esophagitis or any significant hiatal hernia seen. His previous fundoplication appeared intact Followed by urology for what sounds like a neurogenic bladder. He has to self catheterize at least 3-4 times a day. Surgical History Surgery Date(Month/Year) Appendectomy 1997 Knee surgery-left 2010 Fundoplication surgery for GERD with Dr. Simms 2020
--- OUTSIDE RECORDS SUMMARY | 2025-08-21 08:38 | XMS_ITS | Encounter Summary ---
Author Organization [facility] Address [address] [place] [address] Phone Care Team Providers Care Semi Driver Name Role Phone Dimas Fish MD Primary Care Provider [phone] Linda Marquez Primary Care Provide r Encounter Details Date Type Department Care Team (Late st Contact Info) Description 08/17/2023 Procedure Pass [facility], Ct Scan - [facility] [address] [place] [address] Social History Tobacco Use Types Packs/Day Years [...] documented as of this encounter Care Teams Semi Driver Relationship Specialty Start Date End Date Dimas Fish MD [address] [place] [address] [address] [place] [address] PCP - General Internal Medicine 12/21/14 02/02/25 Linda Marquez PA [address] [place] [address] [place] [address] PCP - General Physician Baseball Glove Shaper 02/03/25 documented as of this encounter Additional Source Comments The information contained in this document represents components of the legal health record. It is not the complete legal health record.[facility]
--- OUTSIDE RECORDS SUMMARY | 2025-08-21 08:39 | XMS_ITS | Encounter Summary ---
Author Organization [facility] Address [address] [facility] [address] [place] [address] Phone Care Team Providers Care Balance Truing Inspector Name Role Phone Dimas Fish MD Primary Care Provider [phone] Linda Marquez Primary Care Provide r Encounter Details Date Type Department Care Team (Late st Contact Info) Description 10/19/2020 Procedure Pass [facility], Ct Scan - [facility] [address] [place] [address] Social History Tobacco Use Types Packs/Day Years [...] 10/19/2020 6:24 PM Elana Bush RN * [place] Suicide Severity Rating Scale (Screener/Recent Self-Report) Question Answer Date of Assessment Author 1. Wish to be (Past 1 Month) No 10/19/2020 6:24 PM Elaan Bush RN 2. Non-Specific Active Suici natalia [...] documented as of this encounter Care Teams Balance Truing Inspector Relationship Specialty Start Date End Date Dimas Fish MD [address] [place] [address] [address] [place] [address] PCP - General Internal Medicine 12/21/14 02/02/25 Linda Marquez PA [address] [place] [address] Dr [address] [place] [address] PCP - General Physician Glazier Stained Glass 02/03/25 documented as of this encounter Additional Source Comments The information contained in this document represents components of the legal health record. It is not the complete legal health record.[facility]
--- OUTSIDE RECORDS SUMMARY | 2025-08-21 08:39 | XMS_ITS | Clinical Summary ---
Author Organization [facility] Address [address] [facility] [address] [place] [address] Phone Care Team Providers Care Group Home Supervisor Name Role Phone Linda Marquez Primary Care Provide r Allergies Active Allergy Reactions Criticality Noted Date Comments Diphenhydramine Hcl Feeling Irritable Low 3 Medications ALPRAZolam (XANAX) 0.5 MG tablet Take 0.5 mg by mouth. 1 9 Active amLODIPine (NORVASC) 10 MG tablet Take 10 mg by mouth daily. 2 9 Active atorvastatin (LIPITOR) 80 MG tablet Take 80 mg by mouth daily. 2 9 Active DULoxetine (CYMBALTA) 60 MG capsule TAKE 1 CAPSULE BY MOUTH EVERY DAY IN THE MORNING 1 9 Active losartan (COZAAR) 100 MG tablet Take 100 mg by mouth daily. 5 9 Active metoprolol tartrate (LOPRESSOR) 25 MG tablet TAKE 1 TABLET BY MOUTH EVERY DAY WITH FOOD 1 9 Active OXcarbazepine (TRILEPTAL) 300 MG tablet TAKE 1 IN AM AND 2 AT BEDTIME 1 9 Active omeprazole (PRILOSEC) 20 MG capsule Take 20 mg by mouth daily. Active albuterol 90 mcg/actuation inhaler Inhale 2 puffs into the lungs every 6 (six) hours as needed for wheezing. 8.5 g 2 Active Additional Information Patient not taking.Reported on 08/02/2025 tamsulosin (FLOMAX) 0.4 mg Cap Take 1 capsule by mouth every morning. 3 Active lamoTRIgine (LAMICTAL) 25 MG IMMEDIATE release tablet Take 2 tablets by mouth 2 (two) times a day. 3 Active lamoTRIgine (LAMICTAL) 150 MG IMMEDIATE release tablet Take 150 mg by mouth every morning. 3 Active gabapentin (NEURONTIN) 100 MG capsule Take 100 mg by mouth 3 (three) times a day. 3 Active cholecalciferol (VITAMIN D3) 2,000 unit tablet Take 1 tablet by mouth every morning. 3 Active busPIRone (BUSPAR) 15 MG tablet Take 1 tablet by mouth 2 (two) times a day. 4 Active hydrOXYzine HCL (ATARAX) 10 MG tablet TAKE 1-2 TABLETS BY MOUTH EVERY DAY NEEDED 5 Active metoprolol succinate (TOPROL-XL) 50 MG 24 hr tablet Take 1 tablet by mouth every morning. 5 Active Hospital, Clinic, or Other Facility Administered Medication Ordered Dose Route Frequency Start Date End Date Status doxycycline hyclate (DORYX) tablet 200 mgIndications:Tick bite of groin, initial encounter 200 mg Oral Once 08/02/2025 08/02/2025 Ended Active Problems Problem Noted Date Diagnosed Date Alzheimer's disease 04/15/2023 04/15/2023 Anemia 04/15/2023 04/15/2023 Gama's esophagus 04/15/2023 04/15/2023 Benign prostatic hyperplasia 04/15/2023 Depressive disorder 04/15/2023 04/15/2023 Gastroesophageal reflux disease with esophagitis 04/15/2023 04/15/2023 Hiatal hernia 04/15/2023 04/15/2023 Hyperlipidemia 04/15/2023 04/15/2023 Hypertension 04/15/2023 04/15/2023 Iron deficiency 04/15/2023 04/15/2023 Obsessive-compulsive disorder 04/15/2023 Vitamin D deficiency 04/15/2023 04/15/2023 Encounters Date Type Department Care Team Description 08/11/2025 Telephone [facility] at [address] [address] Aym Cook, KAREN Labs (Left message for patient to call back: lyme testing not performed, incorrect specimen sent. Provider is ordering repeat labs to be done at outpatient lab. Can inform if calls back. ) 08/11/2025 Orders Only [facility] at [address] [address] Precious Sanchez CNP Tick bite, unspecified site, initial encounter (Primary Dx) 08/05/2025 Telephone [facility] at [address] [address] Ellen Carrillo FNP 08/02/2025 1:00 PM EST Office Visit [facility] at [address] [address] Saritha Baltazar CNP Tick bite of groin, initial encounter (Primary Dx); Tick bite of right lower leg, initial encounter from Last 3 Months Immunizations Immunization Administration [...] Sign Reading Time Taken Comments Blood Pressure 102/72 08/02/2025 1:19 PM EST Pulse 93 08/02/2025 1:19 PM EST Temperature 36.7 C (98 F) 08/02/2025 1:19 PM EST Respiratory Rate 20 11/26/2024 9:36 AM EST Oxygen Saturation 97% 08/02/2025 1:19 PM EST Inhaled Oxygen Concentration - - Weight 88.5 kg (195 lb) 11/26/2024 9:36 AM EST Height 172.7 cm (5' 8 ) 11/26/2024 9:36 AM EST Body Mass Index 29.65 11/26/2024 9:36 AM EST Plan of Treatment Health Maintenance Due Date Last Done Comments LIPID PANEL 1959 DEPRESSION SCREENING 1971 HEPATITIS C SCREENING 1977 COLOGUARD 2004 COLONOSCOPY 2004 COLORECTAL CANCER SCREENING 2004 FIT TEST 2004 FOBT 2004 SIGMOIDOSCOPY 2004 VIRTUAL COLONOSCOPY 2004 PNEUMOCOCCAL VACCINES (50+ years) (1 of 1 - PCV) 2009 ZOSTER VACCINES (1 of 2) 2009 CREATININE LEVEL 04/05/2025 04/05/2024, , 08/16/2023, Additional history exists POTASSIUM LEVEL 04/05/2025 04/05/2024, 04/2 09/2023, 08/16/2023, Additional history exists COVID-19 VACCINE (2024- season) 2025 07/21/2025, 07/20/2024, 08/07/2023, Additional history exists BLOOD PRESSURE 01/30/2026 08/02/2025 SCREENING FOR DIABETES 04/05/2027 04/05/2024 Adult Td,Tdap Booster 02/13/2028 02/12/2018, 014 RSV VACCINE (1 - 1-dose 75+ series) 2034 INFLUENZA VACCINE Completed 07/21/2025, , 08/07/2023, Additional history exists SMOKING STATUS SCREENING (Once After 26 Yrs) Completed 08/02/2025 HEPATITIS A VACCINES Aged Out No long [...] Procedure Name Priority Date/Time Associated Diagnosis Comments LYME SCREEN WITH REFLEX TO WESTERN BLOT, BLOOD Routine 08/11/2025 2:01 PM EST Tick bite, unspecified site, initial encounter TEST IN QUESTION - NO LOREN Routine 08/02/2025 2:03 PM EST Tick bite of right lower leg, initial encounter LYME DISEASE,PCR,BLOOD Routine 08/02/2025 2:03 PM EST Tick bite of right lower leg, initial encounter EHRLICHIA/ANAPLASMA PCR Routine 08/02/2025 2:03 PM EST Tick bite of right lower leg, initial encounter BABESIA SPECIES PCR Routine 08/02/2025 2 :03 PM EST Tick bite of right lower leg, initial encounter BASIC METABOLIC PANEL (BMP) STAT 04/05/2024 11:35 AM EDT from Last 3 Months or Most Recently Relevant to Health Maintenance Results * Lyme Screen with Reflex to Immunoblot (08/11/2025 2:01 PM EST) Lyme Ab IgG Negative Negative 08/14/2025 9:50 AM EST [facility] Lyme Ab IgM Negative Negative 08/14/2025 9:50 AM EST [facility] Comment:A negative result do es not rule out the possibility of B.burgdorferi infection in a patient. Patients in early stages of infection may not produce detectable levels of antibody. Blood (Blood) Venipuncture / Unknown 08/11/2025 2:01 PM EST 08/11/2025 4:33 PM EST Precious Sanchez [facility] LAB BLOOD BKR ORDERABLE S Final Result [facility] [address] [place] [address] * Lyme Disease, PCR (08/02/2025 2:03 PM EST) Pathologist [facility] Source TNP/150 08/11/2025 8:48 AM EST [facility] Comment: TEST NOT PERFORMED . No lavender-top tube received. Blood (Blood) Venipuncture / Unknown 08/02/2025 2:03 PM EST 08/02/2025 2:03 PM EST Narrative [facility] (BEAKER) - 08/11/2025 8:48 AM EST [facility] Received Date and Time: [id number] us Saritha Baltazar [facility] LAB BLOOD BKR ORDERABLES Fi nal Result Performing Organization Address City/[facility] [place]/ZIP Co de Phone Number [facility] (BEAKER) [facility] [address] [place] [address], [address] * Ehrlichia/Anaplasma, PCR (08/02/2025 2:03 PM EST) [facility] Anaplasma phagocytophilum Negative Negative 08/06/2025 4:12 PM EST [facility] Ehrlichia chaffeensis Negative Negative 08/06/2025 4:12 PM EST [facility] Ehrlichia ewingii/canis Negative Negative 08/06/2025 4:12 PM EST [facility] Ehrlichia muris eauclairensis Negative Negative 08/06/2025 4:12 PM EST [facility] Comment: ADDITIONAL INFORMATION This test was developed and its performance characteristics determined by [facility] in a manner consistent with CLIA requirements. This test has not been cleared or approved by the U.S. Food and Drug Administration. Blood (Blood) Venipuncture / Unknown 08/02/2025 2:03 PM EST 08/02/2025 2:03 PM EST Saritha [employer] LAB BLOOD BKR ORDERABLES Fi nal Result Performing Organization Address [facility]/ZIP Co de Phone Number [facility] [address] [place] [address], [facility] [phone] * Babesia species, PCR (08/02/2025 2:03 PM EST) Pathologist [facility] Babesia microti Negative Negative 5 4:11 PM EST [facility] Babesia duncani Negative Negative 5 4:11 PM EST [facility] Babesia divergens/MO-1 Negative Negative 08/06/2025 4:11 PM EST [facility] Comment: ADDITIONAL INFORMATION This test was developed and its performance characteristics determined by [facility] in a manner consistent with CLIA requirements. This test has not been cleared or approved by the U.S. Food and Drug Administration. Blood (Blood) Venipuncture / Unknown 08/02/2025 2:03 PM EST 08/02/2025 2:03 PM EST [facility] LAB BLOOD BKR ORDERABLES Fi nal Result Performing Organization Address City/[facility]/ZIP Co de Phone Number [facility] (BEAKER) [facility] [address] [place] [address] [phone] * Test In Question - No Loren (08/02/2025 2:03 PM EST) Question/Problem: 12:28 AM EST [facility] Comment: . No test(s) are indicated on the requisition for the following specimen(s). Please provide the test code(s) and corresponding test name(s) in your response. . Specimens(s) See comments: 08/05/2025 12:28 AM EST [facility] Comment: 1-Plasma vial pour-off: REQUESTED INFORMATION . AUTHORIZED SIGNATURE . TO PREVENT FURTHER DELAYS IN TESTING, PLEASE COMPLETE INFORMATION ABOVE AND FAX TO [phone] OR EMAIL TO [email or web address] TO RESOLVE THIS ORDER. Blood (Blood) Venipuncture / Unknown 08/02/2025 2:03 PM EST 08/02/2025 2:03 PM EST Narrative [facility] (PAT) - 08/05/2025 12:28 AM EST [facility] Received Date and Time: [id number] Saritha Baltazar [employer] LAB BLOOD BKR ORDERABLES Fi nal Result [facility] (PAT) [facility] [address] [place] [address] [address], [place] [address], [facility] * (ABNORMAL) Basic metabolic panel (04/05/2024 11:35 AM EDT) SODIUM 138 133 - 146 mmol/L [facility] CHLORIDE 101 96 - 108 mmol/L [facility] POTASSIUM 4.1 3.3 - 5.1 mmol/L [facility] CO2 23 21 - 35 mmol/L [facility] BUN 29(H) 6 - 19 mg/dL [facility] CREATININE 1.80(H) 0.5 - 1.5 mg/dL [facility] GLUCOSE 109(H) 70 - 99 mg/dL [facility] CALCIUM 9.0 8.4 - 10.3 mg/dL [facility] EGFR 42(L) >59 mL/min/1.7 3m2 [facility] Comment:Estimated glomerular filtration rate calculated using the CKD-EPI refit equation. ANION GAP 18 10 - 20 mmol/L [facility] Blood 04/05/2024 11:3 5 AM EDT 04/05/2024 11:39 AM EDT us Irasema Esquivel PA-C LAB BLOOD BKR ORDERABLES Fi nal Result [facility] [address] [place] [address] from Last 3 Months or Most Recently Relevant to Health Maintenance Insurance MEDICARE PART A & B [employer] MEDEX SUPPLEMENT MEDICARE PART A & B [employer] SUPPLEMENT MEDICARE PART A & B [employer] SUPPLEMENT MEDICARE PART A & B [employer] MEDEX SUPPLEMENT MEDICARE PART A & B [employer] MEDEX SUPPLEMENT MEDICARE PART A & B [facility] MEDEX SUPPLEMENT MEDICARE PART A & B Member Subscriber Plan / Payer ( fective 2018-Present) Name:Erwin Caldwell Member ID:[id number] Relation to Subscriber:Self Name:Erwin Caldwell Subscriber ID:[id number] Payer ID:[id number] Group ID:Not on file Type:Medicare Address: [employer] [address] [place] [phone] [employer] MEDEX SUPPLEMENT MEDICARE PART A & B [employer] MEDEX SUPPLEMENT MEDICARE PART A & B [employer] MEDEX SUPPLEMENT [facility] Address: [facility] [address] [place] [address] MEDICARE PART A & B [employer] MEDEX SUPPLEMENT Care Teams Group Home Supervisor Relationship Specialty Start Date End Date Linda Marquez PA [address] [place] [address] [place] [address] PCP - General Physician Senior Graphic Designer 02/03/25 Additional Source Comments The information contained in this document represents components of the legal health record. It is not the complete legal health record.[facility]
--- OUTSIDE RECORDS SUMMARY | 2025-08-21 08:39 | XMS_ITS | Encounter Summary ---
Author Organization [facility] Address [address] [place] [address] Phone Care Team Providers Care Videographer Name Role Phone Dimas Fish MD Primary Care Provider [phone] Linda Marquez Primary Care Provide r Encounter Details Date Type Department Care Team (Late st Contact Info) Description 12/28/2020 Procedure Pass [facility], Ct Scan - [facility] [address] [place] [address] Social History Tobacco Use Types Packs/Day Years [...] 7:35 PM EDT Magali Lopez, VAHID * [place] Suicide Severity Rating Scale (Screener/Recent Self-Report) Question Answer Date of Assessment Author 1. Wish to be (Past 1 Month) No 021 7:35 PM EDT Magali Lopez, RN 2. Non-Specific Active Suici natalia Thoughts (Past 1 Month) No 12/28/2020 7:35 PM EDT Cristóbal Lopez, VAHID 6. Suicidal Behavior (Lifetime) No 04/09/202 1 7:35 PM EDT Magali Lopez, VAHID documented as of this encounter Plan of Treatment Not on file documented as of this encounter Visit Diagnoses Not on filedocumented in this encounter Additional Health Concerns Infection Onset Date Last Indicated Resolved Time CoV-Exposed Comment:Recent close contact documented in the Travel/Symptom Screening Form 04/04/2024 04/05/2024 04/15/2024 1:22 AM E DT documented as of this encounter Care Teams Videographer Relationship Specialty Start Date End Date Dimas Fish MD [address] [place] [address] [address] [place] [address] PCP - General Internal Medicine 12/21/14 02/02/25 Linda Marquez PA [address] [place] [address] Dr [address] [place] [address] PCP - General Physician Enamel Finisher 02/03/25 documented as of this encounter Additional Source Comments The information contained in this document represents components of the legal health record. It is not the complete legal health record.[facility]
--- OUTSIDE RECORDS SUMMARY | 2025-08-21 08:39 | XMS_ITS | Encounter Summary ---
Author Organization [facility] Address [address] [employer] [facility] [address] [place] [address] Phone Care Team Providers Care Sleep Technologist Name Role Phone Dimas Fish MD Primary Care Provider [phone] Linda Marquez Primary Care Provide r Encounter Details Date Type Department Care Team (Late st Contact Info) Description 04/05/2024 Transcribe Orders [facility] Specimen Processing [address] [place] [address] Dimas Fish MD [address] [place] [address] Dr Aleman [place], [place] [phone] Social History Tobacco Use Types Packs/Day Years [...] 11:59 AM EDT Lorena Hernandez RN * [place] Suicide Severity Rating Scale (Screener/Recent Self-Report) Question [...] documented as of this encounter Care Teams Sleep Technologist Relationship Specialty Start Date End Date Dimas Fish MD [address] [place] [address] [address] [place] [address] PCP - General Internal Medicine 12/21/14 02/02/25 Linda Marquez PA [address] [place] [address] [address] [place] [address] PCP - General Physician Ciso 02/03/25 documented as of this encounter Additional Source Comments The information contained in this document represents components of the legal health record. It is not the complete legal health record.[facility]
--- NOTE | 2025-08-21 09:40 | EEG_ITS ---
History: CAD (coronary artery disease), Depression, Dementia, Hyperlipidemia, Hypertension,Colon polyps, Chronic GERD, Anxiety, Depression, High cholesterol - Patient has some concerns about some episodes of ?amnesia? that he feels has been becoming more frequent. He has somewhat noted a feeling of dissociation or gaps in time lasting possibly sec. This tends to happen more in the evening hours. He otherwise denies any abnormal movements, tongue biting during sleep, urinary incontinence during sleep, or significant staring episodes noticed by family. Medication: alprazolam, amlodipine, atorvastatin, cholecalciferol (vitamin D3), duloxetine, lamotrigine, losartan, metoprolol succinate ER, tamsulosin (Flomax) Technical Description Photic Stimulation: completed Hyperventilation: omitted H/O CAD Behavioral State: pleasant State of Consciousness: awake and drowsy Skull Defect: none Sedation: none Handedness: right Duration: 32 min 7 sec Paper Winder Comments: pt cooperative Last Meal: 08/20/25 9pm Time / date of last symptom: about 1 week ago Description: This is a 16 channel EEG with an EKG lead. Patient is reported awake and drowsy during the tracing. Background EEG rhythm is 16-20 hertz 5-50 microvolt posteriorly lower amplitude fast anteriorly. Intermittently right temporal area slowing and sharp waves were noted. Photic stimulation did not produce any significant driving. Hyperventilation was not performed. Cardiac lead did not reveal any significant abnormality. Impression: Mildly abnormal EEG suggestive of right temporal paroxysmal abnormality that could suggest tendency for partial to complex partial seizures. MTDD
== END 2025-08-21 08:25 | disposition home or self-care (01) ==
LOC: HO.NEURO 08:24
PROVIDERS: Visit Provider Nurse Practitioner
DX: R41.3 Other amnesia (principal)
CPT/HCPCS: 95816

== ENCOUNTER → 2025-08-21 09:40 | Outpatient (BNV) | payer MEDICARE, SELFPAY | PROVIDERS: Visit Provider Psychiatry & Neurology Neurology | DX: R94.01 Abnormal electroencephalogram [EEG] (principal); R41.3 Other amnesia | CPT/HCPCS: 95816 ==

== ENCOUNTER 2025-08-28 11:04 | Outpatient (AMB) | payer MEDICARE, SELFPAY ==
[2025-08-28 11:13] VITALS: BP 110/79; PULSE 72; RESP 16; O2SAT 98; BMI 30.6
--- NOTE | 2025-08-28 11:13 | A.OFFVIS_ITS ---
Vital Signs 08/28/25 11:13 Height 5 ft 8 in Weight 201 lb BMI 30.6 BP 110/79 Blood Pressure Location Rt brachial Position Sitting Respiration 16 Pulse 72 Pulse Source Pulse Oximeter Pulse Oximetry (%) 98 Oxygen Delivery Method Room Air Intake Visit Reasons: after eeg [employer] Consultant Required: No Allergies diphenhydramine (From Benadryl) Allergy (Unknown, Verified 08/28/25 11:14) aggitated,itch,rash HPI Comments Details: Bahman is a 65-year-old male patient with a past medical history of hypertension and hyperlipidemia who follows in the clinic for Alzheimer's dementia. He was seen approximately 1 year ago by and according to office notes, he was a behavioral therapist by profession. Overall he is doing well with some support from his family. He is advised to continue with antidepressant and antianxiety medication and to remain socially and physically active. The time of our last visit on 07/25/2025, he reported only minor changes in his memory since his last visit he has been doing relatively well. He has a dog who keeps him active. He walks her for approximately 20 minutes 3 times a day on average. He is currently living with 1 of his daughters and also frequently sees his other tender whom he does not live with. He does not seem any other family members regularly though does see others for holidays. He is still driving but drives only rarely. His daughter whom he lives with primarily drives for him. He has in the past gotten lost and somewhat disoriented while driving. He remains independent in bathing and grooming and can prepare simple meals for himself such as sandwiches. He however does not cook meals. He drinks 2 glasses of wine on most nights but does not smoke tobacco or use any other illicit substances. At last visit, he did note some concerns about episodes of ?amnesia? which she feels has been becoming more frequent. He has a somewhat noted a feeling of dissociation or gaps in time lasting possibly sec. This tends to happen more in the evening hours. He otherwise denies any abnormal movements, tongue biting during sleep, urinary incontinence during sleep, or significant staring episodes noticed by family. He denies any changes to his gait or falls and denies any changes to bladder or bowel habits. At time of last visit, I ordered an EEG. This EEG was performed 08/21/2025 showing mild abnormalities including right temporal paroxysmal abnormality possibly suggestive of a tendency for partial to complex partial seizures. He tells me today that he has been taking lamotrigine for psychiatric reasons but has never been medicated for seizure in the past. He tolerates his lamotrigine 150 mg dose very well. He generally takes it in the morning. His amnesia episodes are often more likely to occur in the evening hours. He also reports some episodes of a sensation of transient static electricity in his brain from time to time but does not related to the episodes of amnesia per se. He does not have any other symptoms with it. Prior workup: -TSH and B12 level within normal limits on 01/2025 -MRI of the brain is not available for review at this time however the patient reports he had 1 done a few years ago and remembers that there was atrophy in the parietal area and area of the hippocampus. He can not recall where he had imaging done. It isn't available in the [employer] system. [facility] Medical History CAD (coronary artery disease) Depression Dementia Hyperlipidemia Hypertension Colon polyps Chronic GERD GERD (gastroesophageal reflux disease) Anxiety Depression High cholesterol Surgical History History of esophagogastroduodenoscopy (EGD) History of left knee surgery Hx of appendectomy Hx of colonoscopy Family History Father Past heart attack Mother Hypertension Other Mental health disorder Social History Housing: House Alcohol intake: current Alcohol intake frequency: 0-2 drinks per day Patient Tobacco Use Status: Never used Tobacco Tobacco use type: Cigarette e-Cigarette/Vaping Use: Never Used Second Hand Smoke Exposure: No Advance Directives Date on File: 07/09/20 service: No Current occupational status: retired Cognitive needs: No Hearing needs: No Vision needs: Yes (Glasses) Review of Systems Const All systems reviewed & are unremarkable except as noted in HPI and below Physical Exam Vital Signs: Last Vital Signs Pulse 72 08/28/25 11:13 Resp 16 08/28/25 11:13 BP 110/79 08/28/25 11:13 Pulse Ox 98 08/28/25 11:13 Oxygen Delivery Method Room Air 08/28/25 11:13 BMI result Body Mass Index 30.6 Const General: cooperative, healthy appearing, comfortable and no acute distress Nutritional Appearance: well nourished Orientation/consciousness: patient oriented x3 Limitations: no limitations HEENT Head: Yes normal to inspection and Yes normocephalic Eyes General: appearance normal, both eyes and all related structures Visual Poole: normal visual poole by confrontation Alignment and Position: alignment normal Periorbital: periorbital findings normal Eyelids: Yes eyelids normal Conjunctivae: conjunctivae normal Sclerae: sclerae normal Neuro General: patient oriented x3, tone normal and deep tendon reflexes 2+ bilaterally Cranial nerves: Yes CN's II-XII intact bilaterally and Yes Facial sensation intact/muscles of mastication intact Cognition (Neuro): normal cognition Gait exam (Neuro): Normal gait present Motor exam (neuro): 5/5 motor strength present throughout and no tremor noted Sensory Exam: double simultaneous stimulation for sensation normal Romberg Test: Negative Pupils: Normal pupillary reactivity/response: bilateral Psych Appearance: grossly normal Mental Status: mental status grossly normal Speech and movement: Normal speech and movement present and Clear speech present Affect: Blunted affect present Attitude: cooperative Thought process: Normal thought process present Thought content: Normal thought content present Insight: Good insight present (Psych) Judgement: Good judgement present (Psych) Assessment & Plan Assessment & Plan (1) Amnesia: Code(s): R41.3 - Other amnesia Category: Medical (2) Abnormal EEG: Code(s): R94.01 - Abnormal electroencephalogram [EEG] Category: Medical Plan Erwin is a 65-year-old male patient with a past medical history of hypertension and hyperlipidemia who follows in the clinic for Alzheimer's dementia. His memory, moods, and physical functioning seem relatively stable with perhaps some minor decline noticed over the course of the last year. He does take medication for mood support and has help with functional activities at home. His primary concern at time of last visit was regarding episodic moments of disassociation. EEG in the past (November 2014) was okay. I ordered an EEG at time of last visit which did show some abnormality suggesting possibility of tendency for partial complex seizures with right temporal paroxysmal abnormality. He is currently on lamotrigine 150 mg in the morning for moods. I will increase his dose to 150 mg twice daily to see if this helps to reduce the frequency of these events. In terms of his memory, he has been relatively stable however because I will be repeating his brain MRI, and he has already had TSH and B12 testing, it may be a reasonable opportunity to pursue PET scan in the near future to have a more definitive diagnosis of Alzheimer's dementia. If a PET scan more to be normal, would consider more novel Alzheimer's specific medications. -MRI of the brain with and without contrast and with seizure protocol -Follow-up in 6 weeks for MRI review and MOCA score Orders: Orders MR head/brain wo/w con Today R41.3 - Other amnesia, R94.01 - Abnormal electroencephalogram [EEG] Medications: New lamotrigine Take 1/2 tablet by mouth before bed for 1 week and then increase to 1 full tablet by mouth for 1 week. (During these two weeks continue the 150mg tablet in the morning as usual). After these two weeks, can start taking the 150mg tablets by mouth twice daily. 8 tabs 0RF Changed From lamotrigine 150 mg PO QAM To lamotrigine (For weeks 1-2 use the prescribed 100mg tablets to titrate up on your evening dosing) 150 mg PO BID 60 tabs 2RF 30 days Coding Level of Care Code Est Pt Level 4 (67487) Diagnoses Amnesia R41.3 Abnormal EEG R94.01
== END 2025-08-28 12:01 | disposition home or self-care (01) ==
LOC: HO.HSM 11:05
PROVIDERS: Visit Provider Nurse Practitioner
DX: R41.3 Other amnesia (principal); R94.01 Abnormal electroencephalogram [EEG]
CPT/HCPCS: 99214

== ENCOUNTER → 2025-08-28 11:04 | Outpatient (BNVA) | payer MEDICARE, SELFPAY | PROVIDERS: Visit Provider Nurse Practitioner | DX: R94.01 Abnormal electroencephalogram [EEG] (principal); R41.3 Other amnesia | CPT/HCPCS: 99212 ==